=== PATIENT | female | born 1965 | race African-American/Black ===

== ENCOUNTER 2017-11-06 11:16 | Inpatient (IN) | payer MEDICARE, MEDICAID ==
[~2017-11-06] VITALS: Ht 172.7 cm; Wt 89.5 kg
[2017-11-06] MEDS ORDERED: SODIUM CHLORIDE 0.9% 1,000 ML IV ONE (11:38)
[2017-11-06] MEDS ORDERED: METOCLOPRAMIDE HCL 5MG/ml INJ 2ml VIAL IV ONE (11:45)
[2017-11-06 12:33] LABS: Basophils # (auto) 0.1 uL; Eosinophils # (auto) 0.2 uL; Hemoglobin 9.5 g/dL (12.2-16.2); Lymphocytes # (auto) 1.4 uL; Mean Corpuscular Volume 75.1 fL (80.0-100.0); Monocytes # (auto) 0.5 uL; Neutrophils # (auto) 4.5 uL
[2017-11-06 12:35] LABS: Basophils % (auto) 1.2 % (0.0-2.0); Eosinophils % (auto) 2.3 % (0.0-7.0); Hematocrit 30.1 % (36.0-46.0); Lymphocytes % (auto) 21.5 % (10.0-50.0); Mean Corpuscular Hemoglobin 23.7 pg (28.0-32.0); Mean Corpuscular Hgb Conc. 31.5 g/dL (32.0-36.0); Nucleated Red Blood Cells % 0.2 %; Platelet Count (auto) 307 10^3/uL (140-450); Red Blood Cells 4.01 10^6/uL (4.0-5.20); Red Cell Distribution Width 16.3 % (11.8-14.3); White Blood Cell 6.6 10^3/uL (4.4-10.8)
[2017-11-06 12:45] LABS: Albumin 3.4 g/dL (3.4-5.0); Anion Gap 12 (5-15); Blood Urea Nitrogen 10 mg/dL (7-18); Calcium 8.9 mg/dL (8.5-10.1); Carbon Dioxide 20 mmol/L (21-32); Chloride 104 mmol/L (98-107); Glucose 315 mg/dL (74-106); Potassium 3.5 mmol/L (3.5-5.1); Sodium 136 mmol/L (136-145)
[2017-11-06 12:47] LABS: Alanine Aminotransferase 22 U/L (13-56); Aspartate Aminotransferase 8 U/L (15-37); BUN/Creatinine Ratio 13.5; GFR African American 105 mL/min; GFR Non-African American 87 mL/min
[2017-11-06 12:48] LABS: INR 0.93 (0.9-1.15); Partial Thromboplastin Time 28.7 sec (23.78-33.04)
[2017-11-06 12:52] LABS: Alkaline Phosphatase 102 U/L (45-117); Bilirubin, Total 0.4 mg/dL (0.2-1.0); Total Protein 7.2 g/dL (6.4-8.2)
[2017-11-06 13:47] LABS: Urine Bacteria FEW /hpf (None Seen); Urine Blood Negative /uL (Negative); Urine Mucus FEW (None Seen); Urine Specific Gravity 1.029 (1.001-1.035); Urine WBC 1 /hpf (0 - 5)
[2017-11-06] MEDS ORDERED: PROMETHAZINE HCL 25 MG/ML 1ML IV PRN (14:15)
[2017-11-06] MEDS ORDERED: MORPHINE SULF INJ 2 MG/ML SYRINGE 1ML IV PRN (14:15)
[2017-11-06] MEDS ORDERED: HYDROcodone-ACET 5/325MG TAB PO PRN (14:15)
[2017-11-06] MEDS ORDERED: DEXTROSE (50%) 50ML SYRG IV PRN (14:15)
[2017-11-06] MEDS ORDERED: LORazepam 0.5 MG TAB PO PRN (14:15)
[2017-11-06] MEDS ORDERED: ACETAMINOPHEN 500 MG TAB PO PRN (14:15)
[2017-11-06] MEDS ORDERED: LABETALOL HCL 5 MG/ML ML 20ML VIAL IV PRN (14:15)
[2017-11-06] MEDS ORDERED: NITROGLYCERIN 0.4 MG SL TAB SL PRN (14:15)
[2017-11-06] MEDS ORDERED: LACTULOSE 20Gm/30ML SOLN PO PRN (14:15)
[2017-11-06 14:50] LABS: Folate (Folic Acid) 14.05 ng/mL (5.38-24)
[2017-11-06] MEDS: InsuLIN REG 1unit/0.01ml Soln (100units/ml) SC SCH ×3 (16:34→23:30)
[2017-11-06] MEDS: MORPHINE SULF INJ 2 MG/ML SYRINGE 1ML IV PRN ×2 (16:35→20:35)
[2017-11-06] MEDS: ACCU-CHEK COMFORT CURVE STRIP VI SCH ×3 (16:35→23:30)
[2017-11-06] MEDS: SODIUM CHLORIDE 0.9% 1,000 ML IV SCH (16:37)
[2017-11-06 17:58] VITALS: BP 133/94
[2017-11-06 18:14] VITALS: BP 133/94
[2017-11-06] MEDS ORDERED: FENO1TAB42 PO (19:20)
[2017-11-06] MEDS ORDERED: HYDR-4798 PO (19:20)
[2017-11-06] MEDS ORDERED: PROM1SYP4 PO (19:20)
[2017-11-06] MEDS ORDERED: CARB200T4 PO (19:20)
[2017-11-06] MEDS ORDERED: ATOR40TA52 PO (19:20)
[2017-11-06] MEDS ORDERED: FERR220E4 OR (19:20)
[2017-11-06] MEDS ORDERED: TRAZ150T79 PO (19:20)
[2017-11-06] MEDS ORDERED: GABA300C PO (19:20)
[2017-11-06] MEDS ORDERED: CHOL100040 PO (19:20)
[2017-11-06] MEDS ORDERED: LORazepam 2MG/ML-1ML VIAL IV PRN ×2 (20:00)
[2017-11-06] MEDS ORDERED: FLUCONAZOLE 100 MG TAB PO ONE (20:45)
[2017-11-06] MEDS ORDERED: LEVOFLOXACIN 500 MG TAB PO ONE (20:45)
[2017-11-06 21:13] VITALS: BP 133/94
[2017-11-06 21:56] LABS: % Iron Saturation 6.6 % (15-50)
[2017-11-06 21:59] VITALS: BP 141/90
[2017-11-06] MEDS ORDERED: ATORVASTATIN 20 MG TAB PO SCH ×2 (22:00)
[2017-11-06] MEDS: carBAMazepine 200 MG TAB PO SCH (22:18)
[2017-11-06] MEDS: ATORVASTATIN 20 MG TAB PO SCH (22:18)
[2017-11-06] MEDS: TEMAZEPAM 15 MG CAP PO PRN (22:18)
[2017-11-06] MEDS: PRAMIPEXOLE DIHYDROCHLORIDE MO 0.25 MG TAB PO SCH (22:19)
[2017-11-07] MEDS: MORPHINE SULF INJ 2 MG/ML SYRINGE 1ML IV PRN (01:29)
[2017-11-07] MEDS: SODIUM CHLORIDE 0.9% 1,000 ML IV SCH ×2 (02:43→09:29)
[2017-11-07] MEDS: InsuLIN REG 1unit/0.01ml Soln (100units/ml) SC SCH ×5 (03:58→21:48)
[2017-11-07] MEDS: ACCU-CHEK COMFORT CURVE STRIP VI SCH ×5 (03:58→21:49)
[2017-11-07 05:00] VITALS: BP 109/69
[2017-11-07 06:40] LABS: Cholesterol 161 mg/dL (< 200); HDL Cholesterol 26 mg/dL (40-59); LDL Cholesterol 114 mg/dL (< 100); Triglycerides 152 mg/dL (< 150)
[2017-11-07 09:00] VITALS: BP 101/73
[2017-11-07] MEDS: carBAMazepine 200 MG TAB PO SCH ×2 (09:21→21:48)
[2017-11-07] MEDS: PANTOPRAZOLE 40 MG TAB PO SCH (09:21)
[2017-11-07] MEDS: ASPirin 81 mg TAB PO SCH (09:21)
[2017-11-07] MEDS: ENOXAPARIN SOD 40 MG/0.4 ML SYRINGE SC SCH (09:24)
[2017-11-07] MEDS ORDERED: FLUCONAZOLE 100 MG TAB PO SCH (10:00)
[2017-11-07] MEDS ORDERED: LEVOFLOXACIN 500 MG TAB PO SCH (10:00)
[2017-11-07] MEDS ORDERED: DEXTROSE (50%) 50ML SYRG IV PRN (11:00)
[2017-11-07 11:57] LABS: Basophils # (auto) 0.1 uL; Eosinophils # (auto) 0.2 uL; Hemoglobin 8.4 g/dL (12.2-16.2); Monocytes # (auto) 0.4 uL; Neutrophils # (auto) 3.4 uL
[2017-11-07 11:59] LABS: Basophils % (auto) 1.4 % (0.0-2.0); Hematocrit 26.4 % (36.0-46.0); Mean Corpuscular Hemoglobin 24.2 pg (28.0-32.0); Mean Corpuscular Hgb Conc. 31.9 g/dL (32.0-36.0); Mean Corpuscular Volume 75.8 fL (80.0-100.0); Monocytes % (auto) 6.1 % (0.0-12.0); Neutrophils % (auto) 55.5 % (37.0-80.0); Nucleated Red Blood Cells % 0.2 %; Platelet Count (auto) 258 10^3/uL (140-450); Red Blood Cells 3.49 10^6/uL (4.0-5.20); Red Cell Distribution Width 16.4 % (11.8-14.3); White Blood Cell 6.1 10^3/uL (4.4-10.8)
[2017-11-07] MEDS: NYSTATIN TOPICAL POWDER 15GM TOP SCH ×2 (12:00→21:48)
[2017-11-07] MEDS: HYDROcodone-ACET 5/325MG TAB PO PRN ×3 (12:38→21:49)
[2017-11-07 13:00] VITALS: BP 129/92
[2017-11-07 16:38] LABS: BUN/Creatinine Ratio 12.9; Calcium 8.6 mg/dL (8.5-10.1); Potassium 3.5 mmol/L (3.5-5.1)
[2017-11-07 17:11] VITALS: BP 118/84
[2017-11-07 20:00] VITALS: BP 133/67
[2017-11-07] MEDS: PRAMIPEXOLE DIHYDROCHLORIDE MO 0.25 MG TAB PO SCH (21:47)
[2017-11-07] MEDS: ATORVASTATIN 20 MG TAB PO SCH (21:47)
[2017-11-07 22:00] VITALS: BP 133/67
[2017-11-08] MEDS: HYDROcodone-ACET 5/325MG TAB PO PRN ×5 (01:58→21:23)
[2017-11-08] MEDS: SODIUM CHLORIDE 0.9% 1,000 ML IV SCH ×2 (03:43→16:13)
[2017-11-08 04:57] VITALS: BP 135/76
[2017-11-08 06:27] LABS: Basophils # (auto) 0.1 uL; Lymphocytes # (auto) 2.2 uL
[2017-11-08 06:29] LABS: Basophils % (auto) 1.2 % (0.0-2.0); Eosinophils # (auto) 0.2 uL; Eosinophils % (auto) 4.5 % (0.0-7.0); Hematocrit 26.6 % (36.0-46.0); Hemoglobin 8.2 g/dL (12.2-16.2); Mean Corpuscular Hemoglobin 23.4 pg (28.0-32.0); Mean Corpuscular Hgb Conc. 30.7 g/dL (32.0-36.0); Mean Corpuscular Volume 76.4 fL (80.0-100.0); Monocytes # (auto) 0.3 uL; Neutrophils # (auto) 2.5 uL; Neutrophils % (auto) 47.3 % (37.0-80.0); Platelet Count (auto) 259 10^3/uL (140-450); Red Blood Cells 3.48 10^6/uL (4.0-5.20); Red Cell Distribution Width 16.1 % (11.8-14.3); White Blood Cell 5.4 10^3/uL (4.4-10.8)
[2017-11-08 06:44] LABS: BUN/Creatinine Ratio 12.3; Calcium 8.5 mg/dL (8.5-10.1); Potassium 3.8 mmol/L (3.5-5.1)
[2017-11-08] MEDS: InsuLIN REG 1unit/0.01ml Soln (100units/ml) SC SCH ×4 (06:46→21:36)
[2017-11-08] MEDS: ACCU-CHEK COMFORT CURVE STRIP VI SCH ×4 (06:46→21:28)
[2017-11-08] MEDS: INSULIN LANTUS (GLARGINE) 1 /0.01ml (100units/ml) SC SCH (07:30)
[2017-11-08] MEDS ORDERED: SUMAtriptan SUCCINATE 6 MG/0.5 ML VL SC PRN (07:45)
[2017-11-08] MEDS ORDERED: SODIUM FERR GLUC 62.5MG/5ML 125 MG in SODIUM CHL 0.9% 100 ML IV ONE (08:30)
[2017-11-08 09:00] VITALS: BP 131/92
[2017-11-08] MEDS: FLUCONAZOLE 100 MG TAB PO SCH (10:08)
[2017-11-08] MEDS: carBAMazepine 200 MG TAB PO SCH ×2 (10:08→21:22)
[2017-11-08] MEDS: PANTOPRAZOLE 40 MG TAB PO SCH (10:09)
[2017-11-08] MEDS: NYSTATIN TOPICAL POWDER 15GM TOP SCH ×2 (10:09→21:35)
[2017-11-08] MEDS: ENOXAPARIN SOD 40 MG/0.4 ML SYRINGE SC SCH (10:09)
[2017-11-08] MEDS: ASPirin 81 mg TAB PO SCH (10:14)
[2017-11-08 13:00] VITALS: BP 142/100
[2017-11-08 17:04] VITALS: BP 130/90
[2017-11-08 20:00] VITALS: BP 127/84
[2017-11-08] MEDS: ATORVASTATIN 20 MG TAB PO SCH (21:22)
[2017-11-08] MEDS: ASCORBIC ACID 500 MG TAB PO SCH (21:22)
[2017-11-08] MEDS: PRAMIPEXOLE DIHYDROCHLORIDE MO 0.25 MG TAB PO SCH (21:22)
[2017-11-08] MEDS: TEMAZEPAM 15 MG CAP PO PRN (21:34)
[2017-11-08 22:00] VITALS: BP 127/84
[2017-11-09] MEDS: HYDROcodone-ACET 5/325MG TAB PO PRN ×5 (01:41→22:34)
[2017-11-09] MEDS: SODIUM CHLORIDE 0.9% 1,000 ML IV SCH ×2 (04:43→17:13)
[2017-11-09 05:00] VITALS: BP 109/67
[2017-11-09] MEDS: ACCU-CHEK COMFORT CURVE STRIP VI SCH ×4 (06:22→21:50)
[2017-11-09] MEDS: InsuLIN REG 1unit/0.01ml Soln (100units/ml) SC SCH ×4 (06:30→21:50)
[2017-11-09] MEDS: INSULIN LANTUS (GLARGINE) 1 /0.01ml (100units/ml) SC SCH (06:31)
[2017-11-09 06:37] LABS: Basophils # (auto) 0.1 uL; Lymphocytes # (auto) 1.7 uL; Monocytes # (auto) 0.4 uL
[2017-11-09 06:50] LABS: Basophils % (auto) 1.4 % (0.0-2.0); Eosinophils # (auto) 0.2 uL; Eosinophils % (auto) 4.4 % (0.0-7.0); Hemoglobin 8.2 g/dL (12.2-16.2); Lymphocytes % (auto) 31.7 % (10.0-50.0); Mean Corpuscular Hgb Conc. 31.4 g/dL (32.0-36.0); Mean Corpuscular Volume 76.5 fL (80.0-100.0); Neutrophils % (auto) 55.5 % (37.0-80.0); Nucleated Red Blood Cells % 0.1 %; Platelet Count (auto) 242 10^3/uL (140-450); Red Cell Distribution Width 16.7 % (11.8-14.3); White Blood Cell 5.3 10^3/uL (4.4-10.8)
[2017-11-09 07:11] LABS: BUN/Creatinine Ratio 15.8; Calcium 8.3 mg/dL (8.5-10.1); Potassium 3.7 mmol/L (3.5-5.1)
[2017-11-09 09:18] VITALS: BP 130/75
[2017-11-09] MEDS: NYSTATIN TOPICAL POWDER 15GM TOP SCH ×2 (10:00→21:50)
[2017-11-09] MEDS: PRAMIPEXOLE DIHYDROCHLORIDE MO 0.25 MG TAB PO SCH ×2 (10:00→21:36)
[2017-11-09] MEDS: ENOXAPARIN SOD 40 MG/0.4 ML SYRINGE SC SCH (10:00)
[2017-11-09 10:24] LABS: Urine Bacteria FEW /hpf (None Seen); Urine Blood Negative /uL (Negative); Urine Specific Gravity 1.009 (1.001-1.035); Urine WBC 2 /hpf (0 - 5)
[2017-11-09 10:25] LABS: Alcohol, Urine < 3.0 mg/dL (0-5); Amphetamine Screen, Urine NEGATIVE (NEGATIVE); Barbiturate Scree,Urine NEGATIVE (NEGATIVE); Benzodiazephine Screen, Urine NEGATIVE (NEGATIVE); Cannabinoid Screen, Urine NEGATIVE (NEGATIVE); Cocaine Screen, Urine NEGATIVE (NEGATIVE); Opiate Scree,Urine POSITIVE (NEGATIVE); Phencyclidine Screen, Urine NEGATIVE (NEGATIVE)
[2017-11-09] MEDS: PANTOPRAZOLE 40 MG TAB PO SCH (10:33)
[2017-11-09] MEDS: carBAMazepine 200 MG TAB PO SCH ×2 (10:33→21:36)
[2017-11-09] MEDS: FLUCONAZOLE 100 MG TAB PO SCH (10:34)
[2017-11-09] MEDS: ASPirin 81 mg TAB PO SCH (10:34)
[2017-11-09] MEDS: FERROUS SULFATE 325 MG TAB PO SCH ×2 (10:34→18:00)
[2017-11-09] MEDS: ASCORBIC ACID 500 MG TAB PO SCH ×2 (10:34→21:36)
[2017-11-09 13:00] VITALS: BP 111/70
[2017-11-09 17:00] VITALS: BP 133/72
[2017-11-09 20:00] VITALS: BP 127/78
[2017-11-09] MEDS: ATORVASTATIN 20 MG TAB PO SCH (21:37)
[2017-11-09] MEDS: TEMAZEPAM 15 MG CAP PO PRN (21:37)
[2017-11-09 22:00] VITALS: BP 127/78
[2017-11-10] VITALS (7 sets, daily range): BP systolic 120–144; BP diastolic 75–89
[2017-11-10] MEDS: SODIUM CHLORIDE 0.9% 1,000 ML IV SCH ×3 (05:43→18:07)
[2017-11-10 06:18] LABS: Basophils # (auto) 0.1 uL; Eosinophils # (auto) 0.2 uL; Mean Corpuscular Hemoglobin 24.2 pg (28.0-32.0); Monocytes # (auto) 0.4 uL; Nucleated Red Blood Cells % 0.1 %
[2017-11-10 06:21] LABS: Basophils % (auto) 1.2 % (0.0-2.0); Eosinophils % (auto) 3.6 % (0.0-7.0); Lymphocytes # (auto) 2.1 uL; Lymphocytes % (auto) 30.8 % (10.0-50.0); Mean Corpuscular Hgb Conc. 31.8 g/dL (32.0-36.0); Mean Corpuscular Volume 76.2 fL (80.0-100.0); Monocytes % (auto) 5.5 % (0.0-12.0); Neutrophils % (auto) 58.9 % (37.0-80.0); Platelet Count (auto) 244 10^3/uL (140-450); Red Blood Cells 3.29 10^6/uL (4.0-5.20); Red Cell Distribution Width 16.8 % (11.8-14.3); White Blood Cell 6.8 10^3/uL (4.4-10.8)
[2017-11-10 06:29] LABS: BUN/Creatinine Ratio 11.4; Calcium 8.4 mg/dL (8.5-10.1); Potassium 3.6 mmol/L (3.5-5.1)
[2017-11-10] MEDS: ACCU-CHEK COMFORT CURVE STRIP VI SCH ×4 (06:33→21:57)
[2017-11-10] MEDS: InsuLIN REG 1unit/0.01ml Soln (100units/ml) SC SCH ×4 (06:33→21:57)
[2017-11-10] MEDS: INSULIN LANTUS (GLARGINE) 1 /0.01ml (100units/ml) SC SCH (06:33)
[2017-11-10] MEDS: HYDROcodone-ACET 5/325MG TAB PO PRN ×3 (09:01→22:28)
[2017-11-10] MEDS: ENOXAPARIN SOD 40 MG/0.4 ML SYRINGE SC SCH (10:00)
[2017-11-10] MEDS: DEXAMETHASONE INJECTION 10 MG in D5W 5% 50 ML IV SCH (10:40)
[2017-11-10] MEDS: ASPirin 81 mg TAB PO SCH (11:56)
[2017-11-10] MEDS: FERROUS SULFATE 325 MG TAB PO SCH ×2 (11:56→18:07)
[2017-11-10] MEDS: ASCORBIC ACID 500 MG TAB PO SCH ×2 (11:57→21:48)
[2017-11-10] MEDS: PANTOPRAZOLE 40 MG TAB PO SCH (11:57)
[2017-11-10] MEDS: PRAMIPEXOLE DIHYDROCHLORIDE MO 0.25 MG TAB PO SCH ×2 (11:57→21:48)
[2017-11-10] MEDS: carBAMazepine 200 MG TAB PO SCH ×2 (11:57→21:48)
[2017-11-10] MEDS: PROPRANOLOL HCL 20 MG TAB PO SCH ×2 (11:57→21:48)
[2017-11-10] MEDS: NYSTATIN TOPICAL POWDER 15GM TOP SCH ×2 (11:58→21:57)
[2017-11-10] MEDS: METOCLOPRAMIDE HCL 10 MG TAB PO SCH ×2 (14:53→21:45)
[2017-11-10] MEDS: ATORVASTATIN 20 MG TAB PO SCH (21:48)
[2017-11-10] MEDS: TEMAZEPAM 15 MG CAP PO PRN (21:53)
[2017-11-11] MEDS: SODIUM CHLORIDE 0.9% 1,000 ML IV SCH ×2 (04:45→14:45)
[2017-11-11 05:00] VITALS: BP 119/70
[2017-11-11] MEDS: HYDROcodone-ACET 5/325MG TAB PO PRN ×2 (05:03→12:12)
[2017-11-11] MEDS: InsuLIN REG 1unit/0.01ml Soln (100units/ml) SC SCH ×3 (05:52→17:00)
[2017-11-11] MEDS: INSULIN LANTUS (GLARGINE) 1 /0.01ml (100units/ml) SC SCH (05:53)
[2017-11-11] MEDS: ACCU-CHEK COMFORT CURVE STRIP VI SCH ×3 (05:53→17:00)
[2017-11-11] MEDS: METOCLOPRAMIDE HCL 10 MG TAB PO SCH ×2 (05:58→14:00)
[2017-11-11 07:14] LABS: Basophils # (auto) 0.1 uL; Eosinophils # (auto) 0 uL; Nucleated Red Blood Cells % 0.1 %; White Blood Cell 9.4 10^3/uL (4.4-10.8)
[2017-11-11 07:17] LABS: Basophils % (auto) 0.6 % (0.0-2.0); Eosinophils % (auto) 0.4 % (0.0-7.0); Hematocrit 26.3 % (36.0-46.0); Hemoglobin 8.3 g/dL (12.2-16.2); Lymphocytes # (auto) 1.6 uL; Lymphocytes % (auto) 16.6 % (10.0-50.0); Mean Corpuscular Hemoglobin 24.5 pg (28.0-32.0); Mean Corpuscular Hgb Conc. 31.7 g/dL (32.0-36.0); Mean Corpuscular Volume 77.2 fL (80.0-100.0); Monocytes # (auto) 0.6 uL; Monocytes % (auto) 5.9 % (0.0-12.0); Neutrophils # (auto) 7.2 uL; Neutrophils % (auto) 76.5 % (37.0-80.0); Platelet Count (auto) 252 10^3/uL (140-450); Red Cell Distribution Width 16.7 % (11.8-14.3)
[2017-11-11 07:33] LABS: BUN/Creatinine Ratio 20.6; Calcium 8.9 mg/dL (8.5-10.1); Potassium 3.6 mmol/L (3.5-5.1)
[2017-11-11 07:53] VITALS: BP 144/89
[2017-11-11] MEDS ORDERED: ADENOSINE 75 MG in GIVE UN-DILUTED 0 ML IV STA (08:36)
[2017-11-11 09:02] VITALS: BP 128/86
[2017-11-11 09:04] VITALS: BP 135/67
[2017-11-11] MEDS: ENOXAPARIN SOD 40 MG/0.4 ML SYRINGE SC SCH (10:00)
[2017-11-11] MEDS: DEXAMETHASONE INJECTION 10 MG in D5W 5% 50 ML IV SCH (10:44)
[2017-11-11] MEDS: ASPirin 81 mg TAB PO SCH (10:44)
[2017-11-11] MEDS: FERROUS SULFATE 325 MG TAB PO SCH ×2 (10:44→18:00)
[2017-11-11] MEDS: PROPRANOLOL HCL 20 MG TAB PO SCH (10:46)
[2017-11-11] MEDS: PRAMIPEXOLE DIHYDROCHLORIDE MO 0.25 MG TAB PO SCH (10:46)
[2017-11-11] MEDS: PANTOPRAZOLE 40 MG TAB PO SCH (10:46)
[2017-11-11] MEDS: carBAMazepine 200 MG TAB PO SCH (10:47)
[2017-11-11] MEDS: ASCORBIC ACID 500 MG TAB PO SCH (10:47)
[2017-11-11] MEDS: NYSTATIN TOPICAL POWDER 15GM TOP SCH (10:48)
[2017-11-11 12:52] VITALS: BP 126/71
[2017-11-11 17:00] VITALS: BP 143/88
== END 2017-11-11 18:28 | disposition home or self-care (01) | DRG 638 ==
LOC: ER 11:16 → TELE 11:17 → TELE-WESTW 17:24
PROVIDERS: ADMIT Internal Medicine; ATTEND Internal Medicine
PROC: 5A09357 Assistance with Respiratory Ventilation, Less than 24 Consecutive Hours, Continuous Positive Airway Pressure (ICD-10-PCS; principal; 2017-11-06)
PROC: 5A09357 Assistance with Respiratory Ventilation, Less than 24 Consecutive Hours, Continuous Positive Airway Pressure (ICD-10-PCS; 2017-11-08)
PROC: 5A09357 Assistance with Respiratory Ventilation, Less than 24 Consecutive Hours, Continuous Positive Airway Pressure (ICD-10-PCS; 2017-11-10)
PROC: 5A09357 Assistance with Respiratory Ventilation, Less than 24 Consecutive Hours, Continuous Positive Airway Pressure (ICD-10-PCS; 2017-11-11)
DX: E11.65 Type 2 diabetes mellitus with hyperglycemia (principal); G45.9 Transient cerebral ischemic attack, unspecified; E44.1 Mild protein-calorie malnutrition; G25.81 Restless legs syndrome; G47.10 Hypersomnia, unspecified; G47.00 Insomnia, unspecified; E78.5 Hyperlipidemia, unspecified; J45.909 Unspecified asthma, uncomplicated; B37.3 Candidiasis of vulva and vagina; D50.9 Iron deficiency anemia, unspecified; E78.1 Pure hyperglyceridemia; F17.210 Nicotine dependence, cigarettes, uncomplicated; E66.9 Obesity, unspecified; G89.29 Other chronic pain; F41.9 Anxiety disorder, unspecified; G40.409 Other generalized epilepsy and epileptic syndromes, not intractable, without status epilepticus; E11.40 Type 2 diabetes mellitus with diabetic neuropathy, unspecified; I11.9 Hypertensive heart disease without heart failure; I70.0 Atherosclerosis of aorta; Z86.73 Personal history of transient ischemic attack (TIA), and cerebral infarction without residual deficits; Z90.710 Acquired absence of both cervix and uterus; Z88.8 Allergy status to other drugs, medicaments and biological substances; Z79.82 Long term (current) use of aspirin; Z79.899 Other long term (current) drug therapy; I25.2 Old myocardial infarction; Z82.49 Family history of ischemic heart disease and other diseases of the circulatory system; Z83.3 Family history of diabetes mellitus; Z68.30 Body mass index [BMI] 30.0-30.9, adult
CPT/HCPCS: 36415; 70450; 70551; 71045; 80048; 80053; 80061; 80156; 80307; 81001; 82550; 82607; 82728; 82746; 82962; 83036; 83540; 83550; 84443; 84484; 85025; 85610; 85652; 85730; 93005; 93017; 93306; 93886; 94660; 94761; 95819; 96361; 96374; J0153; J1100; J1815; J7060

== ENCOUNTER 2018-02-13 10:15 | Emergency (ER) | payer MEDICARE, MEDICAID ==
[~2018-02-13] VITALS: Ht 172.7 cm; Wt 74.8 kg
[~2018-02-13 10:15] MED LIST: ATOR40TA52 PO; CARB200T4 PO; CHOL100040 PO; FENO1TAB42 PO; FERR220E4 OR; GABA300C PO; HYDR-4798 PO; PROM1SYP4 PO; TRAZ150T79 PO
[2018-02-13] MEDS: SODIUM CHLORIDE 0.9% 1,000 ML IV ONE ×2 (10:25)
[2018-02-13 11:01] VITALS: BP 138/89
[2018-02-13 11:04] LABS: Basophils # (auto) 0.1 uL; Eosinophils # (auto) 0.2 uL; Eosinophils % (auto) 1.7 % (0.0-7.0); Monocytes # (auto) 0.6 uL; Nucleated Red Blood Cells % 0.1 %
[2018-02-13 11:05] LABS: Basophils % (auto) 0.9 % (0.0-2.0); Hematocrit 38.4 % (36.0-46.0); Hemoglobin 11.9 g/dL (12.2-16.2); Lymphocytes # (auto) 1.5 uL; Lymphocytes % (auto) 14.7 % (10.0-50.0); Mean Corpuscular Hgb Conc. 30.9 g/dL (32.0-36.0); Mean Corpuscular Volume 84.1 fL (80.0-100.0); Monocytes % (auto) 5.4 % (0.0-12.0); Neutrophils # (auto) 7.9 uL; Neutrophils % (auto) 77.3 % (37.0-80.0); Platelet Count (auto) 490 10^3/uL (140-450); Red Blood Cells 4.56 10^6/uL (4.0-5.20); Red Cell Distribution Width 19.3 % (11.8-14.3); White Blood Cell 10.3 10^3/uL (4.4-10.8)
[2018-02-13 11:12] LABS: Amylase 84 U/L (25-115); Anion Gap 8 (5-15); Blood Urea Nitrogen 9 mg/dL (7-18); Calcium 8.7 mg/dL (8.5-10.1); Carbon Dioxide 23 mmol/L (21-32); Chloride 108 mmol/L (98-107); Glucose 132 mg/dL (74-106); Lipase 372 U/L (73-393); Sodium 139 mmol/L (136-145)
[2018-02-13 11:17] LABS: Alanine Aminotransferase 18 U/L (13-56); Alkaline Phosphatase 72 U/L (45-117); Aspartate Aminotransferase 11 U/L (15-37); BUN/Creatinine Ratio 17.3; Bilirubin, Total 0.3 mg/dL (0.2-1.0); GFR African American 158 mL/min; GFR Non-African American 131 mL/min; Total Protein 6.5 g/dL (6.4-8.2)
[2018-02-13] MEDS: KETOROLAC TROMETH 30 MG/ML 1ML VIAL IV ONE (11:34)
== END 2018-02-13 12:39 | disposition home or self-care (01) ==
LOC: EDBD 10:15 → ER 10:15
DX: K56.7 Ileus, unspecified (principal); J45.909 Unspecified asthma, uncomplicated; E11.9 Type 2 diabetes mellitus without complications; E78.5 Hyperlipidemia, unspecified; I10 Essential (primary) hypertension; F17.210 Nicotine dependence, cigarettes, uncomplicated; Z79.899 Other long term (current) drug therapy; Z90.710 Acquired absence of both cervix and uterus; Z98.51 Tubal ligation status
CPT/HCPCS: 36415; 71045; 74176; 80053; 82150; 83690; 83880; 84484; 85025; 93005; 96361; 96374; 99284; J1885; J7030

== ENCOUNTER → 2018-04-14 | Outpatient (CLI) | payer MEDICARE, MEDICAID ==
[2018-04-14 16:21] LABS: Albumin 4.2 g/dL (3.4-5.0); Calcium 9.7 mg/dL (8.5-10.1)
[2018-04-14 16:25] LABS: BUN/Creatinine Ratio 12.3; Bilirubin, Total 0.3 mg/dL (0.2-1.0)
[2018-04-14 16:32] LABS: Basophils # (auto) 0.1 uL; Basophils % (auto) 2.7 % (0.0-2.0); Eosinophils # (auto) 0.2 uL; Eosinophils % (auto) 4.3 % (0.0-7.0); Hematocrit 39.8 % (36.0-46.0); Hemoglobin 12.7 g/dL (12.2-16.2); Lymphocytes # (auto) 1.9 uL; Lymphocytes % (auto) 40.6 % (10.0-50.0); Mean Corpuscular Hemoglobin 26.7 pg (28.0-32.0); Mean Corpuscular Hgb Conc. 31.9 g/dL (32.0-36.0); Mean Corpuscular Volume 83.6 fL (80.0-100.0); Monocytes # (auto) 0.3 uL; Monocytes % (auto) 5.6 % (0.0-12.0); Neutrophils # (auto) 2.2 uL; Neutrophils % (auto) 46.8 % (37.0-80.0); Nucleated Red Blood Cells % 0.2 %; Platelet Count (auto) 329 10^3/uL (140-450); Red Blood Cells 4.75 10^6/uL (4.0-5.20); Red Cell Distribution Width 17.2 % (11.8-14.3); White Blood Cell 4.6 10^3/uL (4.4-10.8)
== END | disposition home or self-care (01) ==
LOC: LAB 15:41
PROVIDERS: ATTEND Internal Medicine
DX: C18.9 Malignant neoplasm of colon, unspecified (principal)
CPT/HCPCS: 36415; 80053; 82378; 83615; 85025

== ENCOUNTER → 2018-06-18 | Outpatient (CLI) | payer MEDICARE, MEDICAID ==
[2018-06-18 09:02] LABS: Basophils # (auto) 0.1 uL; Basophils % (auto) 1.2 % (0.0-2.0); Eosinophils # (auto) 0.2 uL; Eosinophils % (auto) 4.1 % (0.0-7.0); Hematocrit 44.3 % (36.0-46.0); Hemoglobin 14.3 g/dL (12.2-16.2); Lymphocytes # (auto) 1.9 uL; Lymphocytes % (auto) 30.8 % (10.0-50.0); Mean Corpuscular Hemoglobin 28.1 pg (28.0-32.0); Mean Corpuscular Hgb Conc. 32.3 g/dL (32.0-36.0); Mean Corpuscular Volume 87.2 fL (80.0-100.0); Monocytes # (auto) 0.4 uL; Monocytes % (auto) 6.9 % (0.0-12.0); Neutrophils # (auto) 3.5 uL; Platelet Count (auto) 310 10^3/uL (140-450); Red Blood Cells 5.08 10^6/uL (4.0-5.20); Red Cell Distribution Width 18.2 % (11.8-14.3); White Blood Cell 6.1 10^3/uL (4.4-10.8)
[2018-06-18 09:34] LABS: Albumin 4.1 g/dL (3.4-5.0); Potassium 4.5 mmol/L (3.5-5.1)
[2018-06-18 09:37] LABS: BUN/Creatinine Ratio 20.2; Bilirubin, Total 0.3 mg/dL (0.2-1.0)
== END | disposition home or self-care (01) ==
LOC: LAB 08:47
PROVIDERS: ATTEND Internal Medicine
DX: C18.2 Malignant neoplasm of ascending colon (principal)
CPT/HCPCS: 36415; 80053; 83615; 85025

== ENCOUNTER → 2018-07-08 | Day surgery (SDC) | payer MEDICARE, MEDICAID ==
[2018-07-06 10:59] LABS: Basophils # (auto) 0.1 uL; Basophils % (auto) 1.9 % (0.0-2.0); Eosinophils # (auto) 0.3 uL; Eosinophils % (auto) 4.7 % (0.0-7.0); Hemoglobin 13.9 g/dL (12.2-16.2); Lymphocytes # (auto) 1.9 uL; Lymphocytes % (auto) 33.2 % (10.0-50.0); Mean Corpuscular Hemoglobin 29.2 pg (28.0-32.0); Mean Corpuscular Hgb Conc. 33.1 g/dL (32.0-36.0); Mean Corpuscular Volume 88.2 fL (80.0-100.0); Monocytes # (auto) 0.3 uL; Monocytes % (auto) 5.8 % (0.0-12.0); Neutrophils # (auto) 3.2 uL; Neutrophils % (auto) 54.4 % (37.0-80.0); Nucleated Red Blood Cells % 0.1 %; Platelet Count (auto) 307 10^3/uL (140-450); Red Blood Cells 4.76 10^6/uL (4.0-5.20); Red Cell Distribution Width 17.3 % (11.8-14.3); White Blood Cell 5.9 10^3/uL (4.4-10.8)
[2018-07-06 11:00] LABS: Urine Bacteria NONE SEEN /hpf (None Seen); Urine Blood Negative /uL (Negative); Urine Specific Gravity 1.033 (1.001-1.035); Urine WBC 3 /hpf (0 - 5)
[2018-07-06 11:16] LABS: INR 0.84 (0.9-1.15); Partial Thromboplastin Time 29.3 sec (23.78-33.04); Prothrombin Time 9.1 sec (9.27-12.13)
[2018-07-06 11:17] LABS: Potassium 4.4 mmol/L (3.5-5.1)
[2018-07-06 11:22] LABS: Albumin 3.9 g/dL (3.4-5.0); Calcium 9.6 mg/dL (8.5-10.1)
[2018-07-06 11:24] LABS: BUN/Creatinine Ratio 15.8
[2018-07-06 11:27] LABS: Bilirubin, Total 0.2 mg/dL (0.2-1.0)
[~2018-07-08] VITALS: Ht 177.8 cm; Wt 82.6 kg
[~2018-07-08] MED LIST changes: +ACCU-CHEK COMFORT CURVE STRIP VI ONE; -ATOR40TA52 PO; +DexAMETHasone SOD PHOS 10MG/1ML VIAL INJ ONE; -FENO1TAB42 PO; +HEPARIN 1,000 UNITS/ml 1ML VIAL ONE; +HEPARIN SODIUM (PORCINE) 5000 UNITS/ML 1ML VIAL ONE; +InsuLIN REG 1unit/0.01ml Soln (100units/ml) ONE; +KETOROLAC TROMETH 30 MG/ML 1ML VIAL IV ONE; +LABETALOL HCL 5 MG/ML 4ML SYRINGE IV PRN; +MIDAZOLAM HCL 1MG/1ML-2 ML VIAL IV PRN; +MIDAZOLAM HCL 1MG/1ML-2 ML VIAL ONE; +MORPHINE SULFATE 4 MG/ML SYR/VIAL IV ONE; +MORPHINE SULFATE 4 MG/ML SYR/VIAL IV PRN; +ONDANSETRON HCL 4 MG/2 ML VIAL IV ONE; -PROM1SYP4 PO; +PROPOFOL 10 MG/ML 20 ML IV ONE; -TRAZ150T79 PO; +ceFAZolin 1GM VL ONE; +ceFAZolin 1GM/50ML 50 ML IV ONE; +ePHEDrine SULFATE 50 MG/ML AMP IV PRN; +fentaNYL CITRATE 100 MCG/2 ML VL ONE
[2018-07-08] MEDS: HYDROmorphone HCL 2 MG/ML VL IV PRN ×2 (12:45→12:55)
[2018-07-08 13:08] VITALS: BP 128/93
== END | disposition home or self-care (01) ==
LOC: SUR 08:57
PROVIDERS: ATTEND Surgery
DX: C18.9 Malignant neoplasm of colon, unspecified (principal); I10 Essential (primary) hypertension; E11.9 Type 2 diabetes mellitus without complications; J44.9 Chronic obstructive pulmonary disease, unspecified; E78.5 Hyperlipidemia, unspecified; F32.9 Major depressive disorder, single episode, unspecified; F20.9 Schizophrenia, unspecified; F17.210 Nicotine dependence, cigarettes, uncomplicated; Z79.899 Other long term (current) drug therapy; F41.9 Anxiety disorder, unspecified; Z98.51 Tubal ligation status; Z90.49 Acquired absence of other specified parts of digestive tract; Z98.890 Other specified postprocedural states; Z88.8 Allergy status to other drugs, medicaments and biological substances; Z86.73 Personal history of transient ischemic attack (TIA), and cerebral infarction without residual deficits
CPT/HCPCS: 36415; 36561; 71045; 80053; 81001; 82378; 82962; 85025; 85610; 85730; C1788; J0690; J1100; J1170; J1644; J1815; J2250; J2704; J3010; J1885

== ENCOUNTER → 2018-08-07 | Outpatient (CLI) | payer MEDICARE, MEDICAID ==
[~2018-08-07] MED LIST changes: -ACCU-CHEK COMFORT CURVE STRIP VI ONE; -DexAMETHasone SOD PHOS 10MG/1ML VIAL INJ ONE; -HEPARIN 1,000 UNITS/ml 1ML VIAL ONE; -HEPARIN SODIUM (PORCINE) 5000 UNITS/ML 1ML VIAL ONE; -HYDR-4798 PO; -InsuLIN REG 1unit/0.01ml Soln (100units/ml) ONE; -KETOROLAC TROMETH 30 MG/ML 1ML VIAL IV ONE; -LABETALOL HCL 5 MG/ML 4ML SYRINGE IV PRN; -MIDAZOLAM HCL 1MG/1ML-2 ML VIAL IV PRN; -MIDAZOLAM HCL 1MG/1ML-2 ML VIAL ONE; -MORPHINE SULFATE 4 MG/ML SYR/VIAL IV ONE; -MORPHINE SULFATE 4 MG/ML SYR/VIAL IV PRN; -ONDANSETRON HCL 4 MG/2 ML VIAL IV ONE; +OXY10CRT PO; -PROPOFOL 10 MG/ML 20 ML IV ONE; -ceFAZolin 1GM VL ONE; -ceFAZolin 1GM/50ML 50 ML IV ONE; -ePHEDrine SULFATE 50 MG/ML AMP IV PRN; -fentaNYL CITRATE 100 MCG/2 ML VL ONE
[2018-08-07 09:10] LABS: Basophils # (auto) 0.1 uL; Basophils % (auto) 1.1 % (0.0-2.0); Eosinophils # (auto) 0.2 uL; Hematocrit 39.1 % (36.0-46.0); Hemoglobin 12.7 g/dL (12.2-16.2); Lymphocytes # (auto) 1.8 uL; Lymphocytes % (auto) 37.2 % (10.0-50.0); Mean Corpuscular Hemoglobin 29.2 pg (28.0-32.0); Mean Corpuscular Hgb Conc. 32.5 g/dL (32.0-36.0); Monocytes # (auto) 0.4 uL; Monocytes % (auto) 8.3 % (0.0-12.0); Neutrophils # (auto) 2.4 uL; Neutrophils % (auto) 49.4 % (37.0-80.0); Nucleated Red Blood Cells % 0.1 %; Platelet Count (auto) 286 10^3/uL (140-450); Red Blood Cells 4.34 10^6/uL (4.0-5.20); Red Cell Distribution Width 16.2 % (11.8-14.3)
[2018-08-07 09:37] LABS: Albumin 3.6 g/dL (3.4-5.0); Calcium 9.1 mg/dL (8.5-10.1); Potassium 3.6 mmol/L (3.5-5.1)
[2018-08-07 09:41] LABS: BUN/Creatinine Ratio 10.4; Bilirubin, Total 0.3 mg/dL (0.2-1.0); Total Protein 7.4 g/dL (6.4-8.2)
== END | disposition home or self-care (01) ==
LOC: LAB 08:57
PROVIDERS: ATTEND Internal Medicine
DX: C18.2 Malignant neoplasm of ascending colon (principal)
CPT/HCPCS: 36415; 80053; 82378; 83615; 85025

== ENCOUNTER → 2018-08-20 | Outpatient (CLI) | payer MEDICARE, MEDICAID ==
[2018-08-20 13:22] LABS: Basophils # (auto) 0 uL; Basophils % (auto) 0.8 % (0.0-2.0); Eosinophils # (auto) 0.3 uL; Eosinophils % (auto) 5.8 % (0.0-7.0); Hemoglobin 11.9 g/dL (12.2-16.2); Lymphocytes # (auto) 2.1 uL; Lymphocytes % (auto) 42.1 % (10.0-50.0); Mean Corpuscular Hemoglobin 30.4 pg (28.0-32.0); Mean Corpuscular Hgb Conc. 34.1 g/dL (32.0-36.0); Mean Corpuscular Volume 89.1 fL (80.0-100.0); Monocytes # (auto) 0.4 uL; Neutrophils # (auto) 2.1 uL; Neutrophils % (auto) 42.3 % (37.0-80.0); Nucleated Red Blood Cells % 0.1 %; Platelet Count (auto) 190 10^3/uL (140-450); Red Blood Cells 3.93 10^6/uL (4.0-5.20); Red Cell Distribution Width 15.7 % (11.8-14.3)
[2018-08-20 13:58] LABS: Potassium 3.7 mmol/L (3.5-5.1)
[2018-08-20 14:05] LABS: Albumin 3.4 g/dL (3.4-5.0); BUN/Creatinine Ratio 15.9; Bilirubin, Total 0.4 mg/dL (0.2-1.0); Calcium 8.6 mg/dL (8.5-10.1); Total Protein 6.8 g/dL (6.4-8.2)
== END | disposition home or self-care (01) ==
LOC: LAB 12:58
PROVIDERS: ATTEND Internal Medicine
DX: C18.2 Malignant neoplasm of ascending colon (principal)
CPT/HCPCS: 36415; 80053; 82378; 83615; 85025

== ENCOUNTER → 2018-09-08 | Outpatient (CLI) | payer MEDICARE ==
[2018-09-08 13:51] LABS: Basophils # (auto) 0.1 uL; Eosinophils # (auto) 0.1 uL; Eosinophils % (auto) 1.4 % (0.0-7.0); Hematocrit 41.4 % (36.0-46.0); Hemoglobin 13.6 g/dL (12.2-16.2); Lymphocytes # (auto) 1.9 uL; Mean Corpuscular Hemoglobin 29.4 pg (28.0-32.0); Mean Corpuscular Hgb Conc. 32.9 g/dL (32.0-36.0); Mean Corpuscular Volume 89.4 fL (80.0-100.0); Monocytes # (auto) 0.5 uL; Monocytes % (auto) 8.6 % (0.0-12.0); Neutrophils # (auto) 3.8 uL; Nucleated Red Blood Cells % 0.1 %; Platelet Count (auto) 236 10^3/uL (140-450); Red Blood Cells 4.63 10^6/uL (4.0-5.20); Red Cell Distribution Width 16.2 % (11.8-14.3); White Blood Cell 6.4 10^3/uL (4.4-10.8)
[2018-09-08 14:07] LABS: Albumin 4.1 g/dL (3.4-5.0); Calcium 9.9 mg/dL (8.5-10.1); Potassium 4.3 mmol/L (3.5-5.1)
[2018-09-08 14:11] LABS: Bilirubin, Total 0.4 mg/dL (0.2-1.0); Total Protein 7.9 g/dL (6.4-8.2)
[2018-09-08 14:57] LABS: Free T4 (Free Thyroxine) 1.09 ng/dL (0.89-1.76)
[2018-09-08 14:58] LABS: Folate (Folic Acid) > 24.00 ng/mL (5.38-24)
[2018-09-08 15:07] LABS: Alcohol, Urine < 3.0 mg/dL (0-5); Amphetamine Screen, Urine NEGATIVE (NEGATIVE); Barbiturate Scree,Urine NEGATIVE (NEGATIVE); Benzodiazephine Screen, Urine NEGATIVE (NEGATIVE); Cannabinoid Screen, Urine NEGATIVE (NEGATIVE); Cocaine Screen, Urine NEGATIVE (NEGATIVE); Opiate Scree,Urine NEGATIVE (NEGATIVE); Phencyclidine Screen, Urine NEGATIVE (NEGATIVE)
[2018-09-08 15:14] LABS: Urine Bacteria FEW /hpf (None Seen); Urine Blood Negative /uL (Negative); Urine Mucus FEW (None Seen); Urine Specific Gravity 1.027 (1.001-1.035); Urine WBC 2 /hpf (0 - 5)
== END | disposition home or self-care (01) ==
LOC: LAB 13:13
PROVIDERS: ATTEND Internal Medicine
DX: C18.2 Malignant neoplasm of ascending colon (principal); I10 Essential (primary) hypertension; E11.9 Type 2 diabetes mellitus without complications; F17.200 Nicotine dependence, unspecified, uncomplicated; F41.8 Other specified anxiety disorders; F33.0 Major depressive disorder, recurrent, mild; E78.5 Hyperlipidemia, unspecified; Z79.899 Other long term (current) drug therapy
CPT/HCPCS: 36415; 80053; 80061; 80307; 81001; 82043; 82378; 82607; 82746; 83036; 83615; 84439; 84443; 85025

== ENCOUNTER → 2018-09-21 | Outpatient (CLI) | payer MEDICARE ==
[2018-09-21 12:51] LABS: Basophils # (auto) 0.1 uL; Basophils % (auto) 0.8 % (0.0-2.0); Eosinophils # (auto) 0.3 uL; Eosinophils % (auto) 3.3 % (0.0-7.0); Hematocrit 41.5 % (36.0-46.0); Hemoglobin 13.5 g/dL (12.2-16.2); Lymphocytes # (auto) 3.1 uL; Lymphocytes % (auto) 40.7 % (10.0-50.0); Mean Corpuscular Hgb Conc. 32.6 g/dL (32.0-36.0); Monocytes # (auto) 0.6 uL; Monocytes % (auto) 8.5 % (0.0-12.0); Neutrophils # (auto) 3.5 uL; Neutrophils % (auto) 46.7 % (37.0-80.0); Nucleated Red Blood Cells % 0.1 %; Platelet Count (auto) 223 10^3/uL (140-450); Red Blood Cells 4.51 10^6/uL (4.0-5.20); Red Cell Distribution Width 16.5 % (11.8-14.3); White Blood Cell 7.5 10^3/uL (4.4-10.8)
[2018-09-21 13:05] LABS: Albumin 3.8 g/dL (3.4-5.0); BUN/Creatinine Ratio 22.1; Calcium 9.5 mg/dL (8.5-10.1); Total Protein 7.7 g/dL (6.4-8.2)
== END | disposition home or self-care (01) ==
LOC: LAB 10:56
PROVIDERS: ATTEND Internal Medicine
DX: C18.2 Malignant neoplasm of ascending colon (principal)
CPT/HCPCS: 36415; 80053; 83615; 85025

== ENCOUNTER → 2018-09-23 | Outpatient (CLI) | payer MEDICARE ==
[2018-09-23 09:59] LABS: Basophils # (auto) 0.1 uL; Basophils % (auto) 1.1 % (0.0-2.0); Eosinophils # (auto) 0.2 uL; Eosinophils % (auto) 3.8 % (0.0-7.0); Hemoglobin 12.4 g/dL (12.2-16.2); Lymphocytes # (auto) 1.6 uL; Lymphocytes % (auto) 31.4 % (10.0-50.0); Mean Corpuscular Hemoglobin 29.8 pg (28.0-32.0); Mean Corpuscular Hgb Conc. 32.6 g/dL (32.0-36.0); Mean Corpuscular Volume 91.4 fL (80.0-100.0); Monocytes # (auto) 0.3 uL; Monocytes % (auto) 6.4 % (0.0-12.0); Neutrophils % (auto) 57.3 % (37.0-80.0); Nucleated Red Blood Cells % 0.1 %; Platelet Count (auto) 184 10^3/uL (140-450); Red Blood Cells 4.16 10^6/uL (4.0-5.20); Red Cell Distribution Width 16.4 % (11.8-14.3); White Blood Cell 5.2 10^3/uL (4.4-10.8)
[2018-09-23 10:09] LABS: Anion Gap 12 (5-15); BUN/Creatinine Ratio 17.6; Blood Urea Nitrogen 15 mg/dL (7-18); Calcium 8.9 mg/dL (8.5-10.1); Carbon Dioxide 23 mmol/L (21-32); Chloride 108 mmol/L (98-107); GFR African American 89 mL/min; GFR Non-African American 74 mL/min; Glucose 243 mg/dL (74-106); Potassium 4.2 mmol/L (3.5-5.1); Sodium 143 mmol/L (136-145)
[2018-09-23 10:25] LABS: INR < 0.93 (0.9-1.15)
== END | disposition home or self-care (01) ==
LOC: LAB 09:34
PROVIDERS: ATTEND Internal Medicine
DX: C18.2 Malignant neoplasm of ascending colon (principal); I10 Essential (primary) hypertension; E78.00 Pure hypercholesterolemia, unspecified; E11.40 Type 2 diabetes mellitus with diabetic neuropathy, unspecified
CPT/HCPCS: 36415; 80048; 82378; 85025; 85610; 85730

== ENCOUNTER → 2018-10-12 | Outpatient (CLI) | payer MEDICARE, MEDICAID ==
[2018-10-12 09:24] LABS: Basophils # (auto) 0.1 uL; Basophils % (auto) 1.9 % (0.0-2.0); Eosinophils # (auto) 0.1 uL; Eosinophils % (auto) 3.1 % (0.0-7.0); Hematocrit 39.8 % (36.0-46.0); Lymphocytes # (auto) 1.8 uL; Lymphocytes % (auto) 37.6 % (10.0-50.0); Mean Corpuscular Hemoglobin 29.8 pg (28.0-32.0); Mean Corpuscular Hgb Conc. 32.6 g/dL (32.0-36.0); Mean Corpuscular Volume 91.4 fL (80.0-100.0); Monocytes # (auto) 0.4 uL; Monocytes % (auto) 7.6 % (0.0-12.0); Neutrophils # (auto) 2.4 uL; Neutrophils % (auto) 49.8 % (37.0-80.0); Nucleated Red Blood Cells % 0.1 %; Platelet Count (auto) 221 10^3/uL (140-450); Red Blood Cells 4.35 10^6/uL (4.0-5.20); Red Cell Distribution Width 16.5 % (11.8-14.3); White Blood Cell 4.8 10^3/uL (4.4-10.8)
[2018-10-12 09:53] LABS: Potassium 3.5 mmol/L (3.5-5.1)
[2018-10-12 09:59] LABS: Albumin 3.6 g/dL (3.4-5.0); BUN/Creatinine Ratio 17.6; Bilirubin, Total 0.4 mg/dL (0.2-1.0); Total Protein 7.5 g/dL (6.4-8.2)
== END | disposition home or self-care (01) ==
LOC: LAB 09:05
PROVIDERS: ATTEND Internal Medicine
DX: C18.2 Malignant neoplasm of ascending colon (principal)
CPT/HCPCS: 36415; 80053; 83615; 85025

== ENCOUNTER → 2018-10-26 | Outpatient (CLI) | payer MEDICARE, MEDICAID ==
[2018-10-26 09:34] LABS: Basophils # (auto) 0 uL; Basophils % (auto) 0.8 % (0.0-2.0); Eosinophils # (auto) 0.2 uL; Eosinophils % (auto) 3.1 % (0.0-7.0); Hematocrit 37.5 % (36.0-46.0); Hemoglobin 12.3 g/dL (12.2-16.2); Lymphocytes # (auto) 2.4 uL; Mean Corpuscular Hemoglobin 30.3 pg (28.0-32.0); Mean Corpuscular Hgb Conc. 32.7 g/dL (32.0-36.0); Mean Corpuscular Volume 92.7 fL (80.0-100.0); Monocytes # (auto) 0.5 uL; Monocytes % (auto) 8.9 % (0.0-12.0); Neutrophils # (auto) 2.3 uL; Neutrophils % (auto) 43.2 % (37.0-80.0); Nucleated Red Blood Cells % 0.1 %; Platelet Count (auto) 198 10^3/uL (140-450); Red Blood Cells 4.05 10^6/uL (4.0-5.20); Red Cell Distribution Width 17.4 % (11.8-14.3); White Blood Cell 5.3 10^3/uL (4.4-10.8)
[2018-10-26 10:14] LABS: Albumin 3.4 g/dL (3.4-5.0); Calcium 8.8 mg/dL (8.5-10.1); Potassium 3.5 mmol/L (3.5-5.1)
[2018-10-26 10:17] LABS: Bilirubin, Total 0.2 mg/dL (0.2-1.0); Total Protein 6.9 g/dL (6.4-8.2)
== END | disposition home or self-care (01) ==
LOC: LAB 08:55
PROVIDERS: ATTEND Internal Medicine
DX: C18.2 Malignant neoplasm of ascending colon (principal)
CPT/HCPCS: 36415; 80053; 82378; 83615; 85025

== ENCOUNTER → 2018-12-02 | Outpatient (CLI) | payer MEDICARE, MEDICAID ==
[2018-12-02 10:29] LABS: Basophils # (auto) 0.1 uL; Basophils % (auto) 1.2 % (0.0-2.0); Eosinophils # (auto) 0.1 uL; Eosinophils % (auto) 2.3 % (0.0-7.0); Hematocrit 42.4 % (36.0-46.0); Hemoglobin 14.2 g/dL (12.2-16.2); Lymphocytes # (auto) 1.6 uL; Lymphocytes % (auto) 27.9 % (10.0-50.0); Mean Corpuscular Hemoglobin 31.1 pg (28.0-32.0); Mean Corpuscular Hgb Conc. 33.5 g/dL (32.0-36.0); Mean Corpuscular Volume 92.7 fL (80.0-100.0); Monocytes # (auto) 0.4 uL; Monocytes % (auto) 6.4 % (0.0-12.0); Neutrophils # (auto) 3.5 uL; Neutrophils % (auto) 62.2 % (37.0-80.0); Platelet Count (auto) 188 10^3/uL (140-450); Red Blood Cells 4.58 10^6/uL (4.0-5.20); Red Cell Distribution Width 17.3 % (11.8-14.3); White Blood Cell 5.6 10^3/uL (4.4-10.8)
[2018-12-02 11:00] LABS: Albumin 3.5 g/dL (3.4-5.0); Calcium 9.1 mg/dL (8.5-10.1); Potassium 3.8 mmol/L (3.5-5.1)
[2018-12-02 11:14] LABS: BUN/Creatinine Ratio 18.5; Bilirubin, Total 0.4 mg/dL (0.2-1.0); Total Protein 7.2 g/dL (6.4-8.2)
== END | disposition home or self-care (01) ==
LOC: LAB 08:38
PROVIDERS: ATTEND Internal Medicine
DX: C18.2 Malignant neoplasm of ascending colon (principal)
CPT/HCPCS: 36415; 80053; 83615; 85025

== ENCOUNTER 2018-12-04 09:34 | Emergency (ER) | payer MEDICARE, MEDICAID ==
[~2018-12-04] VITALS: Ht 177.8 cm; Wt 81.6 kg
[2018-12-04] MEDS ORDERED: SODIUM CHLORIDE 0.9% 1,000 ML IV ONE ×2 (09:58)
[2018-12-04] MEDS ORDERED: InsuLIN REG 1unit/0.01ml Soln (100units/ml) IV ONE (10:00)
[2018-12-04] MEDS ORDERED: KETOROLAC TROMETH 30 MG/ML 1ML VIAL IV ONE (10:30)
[2018-12-04 10:37] LABS: Urine WBC None Seen /hpf (0 - 5)
[2018-12-04 10:44] LABS: Basophils # (auto) 0 uL; Basophils % (auto) 0.9 % (0.0-2.0); Eosinophils # (auto) 0.1 uL; Eosinophils % (auto) 2.4 % (0.0-7.0); Hematocrit 41.1 % (36.0-46.0); Hemoglobin 13.9 g/dL (12.2-16.2); Lymphocytes # (auto) 1.1 uL; Mean Corpuscular Hemoglobin 30.8 pg (28.0-32.0); Mean Corpuscular Hgb Conc. 33.7 g/dL (32.0-36.0); Mean Corpuscular Volume 91.4 fL (80.0-100.0); Monocytes # (auto) 0.3 uL; Monocytes % (auto) 5.4 % (0.0-12.0); Neutrophils # (auto) 3.3 uL; Neutrophils % (auto) 68.3 % (37.0-80.0); Nucleated Red Blood Cells % 0.1 %; Platelet Count (auto) 174 10^3/uL (140-450); White Blood Cell 4.8 10^3/uL (4.4-10.8)
[2018-12-04 10:47] LABS: Urine Bacteria NONE SEEN /hpf (None Seen); Urine Blood Negative /uL (Negative); Urine Specific Gravity 1.036 (1.001-1.035)
[2018-12-04] MEDS ORDERED: HYDROcodone-ACET 10/325MG TAB PO ONE (11:00)
[2018-12-04 11:03] LABS: Alanine Aminotransferase 28 U/L (13-56); Albumin 3.6 g/dL (3.4-5.0); Anion Gap 8 (5-15); Aspartate Aminotransferase 14 U/L (15-37); Blood Urea Nitrogen 12 mg/dL (7-18); Calcium 9.2 mg/dL (8.5-10.1); Carbon Dioxide 22 mmol/L (21-32); Chloride 108 mmol/L (98-107); Glucose 387 mg/dL (74-106); INR < 0.93 (0.9-1.15); Partial Thromboplastin Time 26.2 sec (23.64-32.05); Potassium 3.6 mmol/L (3.5-5.1); Sodium 138 mmol/L (136-145)
[2018-12-04 11:08] LABS: Alkaline Phosphatase 119 U/L (45-117); BUN/Creatinine Ratio 15.6; Bilirubin, Total 0.5 mg/dL (0.2-1.0); GFR African American 100 mL/min; GFR Non-African American 83 mL/min; Total Protein 7.5 g/dL (6.4-8.2)
[2018-12-04] MEDS ORDERED: MORPHINE SULF INJ 2 MG/ML SYRINGE 1ML IV ONE (12:15)
[2018-12-04 13:20] VITALS: BP 139/92
== END 2018-12-04 13:21 | disposition home or self-care (01) ==
LOC: ER 09:34
DX: E86.0 Dehydration (principal); E11.9 Type 2 diabetes mellitus without complications; J45.909 Unspecified asthma, uncomplicated; E78.5 Hyperlipidemia, unspecified; I10 Essential (primary) hypertension; Z98.51 Tubal ligation status; Z90.710 Acquired absence of both cervix and uterus; Z88.6 Allergy status to analgesic agent
CPT/HCPCS: 36415; 71045; 80053; 81001; 82962; 84484; 85025; 85610; 85730; 93005; 94761; 96361; 96374; 96375; 99284; J1815; J2270; J1885

== ENCOUNTER → 2018-12-22 | Outpatient (CLI) | payer MEDICARE, MEDICAID ==
[~2018-12-22] MED LIST changes: +CHOL20007 OR; +FERR-20 PO
[2018-12-22 13:38] LABS: Basophils # (auto) 0.1 uL; Basophils % (auto) 1.5 % (0.0-2.0); Eosinophils # (auto) 0.1 uL; Eosinophils % (auto) 3.4 % (0.0-7.0); Hematocrit 43.1 % (36.0-46.0); Hemoglobin 14.3 g/dL (12.2-16.2); Lymphocytes # (auto) 1.4 uL; Lymphocytes % (auto) 41.3 % (10.0-50.0); Mean Corpuscular Hgb Conc. 33.1 g/dL (32.0-36.0); Mean Corpuscular Volume 93.7 fL (80.0-100.0); Monocytes # (auto) 0.4 uL; Monocytes % (auto) 10.8 % (0.0-12.0); Neutrophils # (auto) 1.4 uL; Platelet Count (auto) 231 10^3/uL (140-450); White Blood Cell 3.3 10^3/uL (4.4-10.8)
[2018-12-22 14:00] LABS: Albumin 3.5 g/dL (3.4-5.0); Calcium 9.1 mg/dL (8.5-10.1); Potassium 3.8 mmol/L (3.5-5.1)
[2018-12-22 14:13] LABS: BUN/Creatinine Ratio 12.5; Bilirubin, Total 0.3 mg/dL (0.2-1.0); Total Protein 7.3 g/dL (6.4-8.2)
== END | disposition home or self-care (01) ==
LOC: LAB 13:07
PROVIDERS: ATTEND Internal Medicine
DX: C18.2 Malignant neoplasm of ascending colon (principal)
CPT/HCPCS: 36415; 80053; 82378; 83615; 85025

== ENCOUNTER 2018-12-24 12:29 | Inpatient (IN) | payer MEDICARE, MEDICAID ==
[~2018-12-24] VITALS: Ht 177.8 cm; Wt 85.7 kg
[~2018-12-24 12:29] MED LIST changes: -CHOL20007 OR; -FERR-20 PO
[2018-12-24] MEDS ORDERED: SODIUM CHLORIDE 0.9% 1,000 ML IVB ONE (13:41)
[2018-12-24 13:42] LABS: Basophils # (auto) 0 uL; Eosinophils # (auto) 0.1 uL; Eosinophils % (auto) 2.7 % (0.0-7.0); Hematocrit 41.8 % (36.0-46.0); Hemoglobin 13.9 g/dL (12.2-16.2); Lymphocytes # (auto) 1.1 uL; Mean Corpuscular Hemoglobin 30.8 pg (28.0-32.0); Mean Corpuscular Hgb Conc. 33.2 g/dL (32.0-36.0); Mean Corpuscular Volume 92.7 fL (80.0-100.0); Monocytes # (auto) 0.3 uL; Monocytes % (auto) 6.5 % (0.0-12.0); Neutrophils # (auto) 2.5 uL; Neutrophils % (auto) 62.8 % (37.0-80.0); Nucleated Red Blood Cells % 0.1 %; Platelet Count (auto) 209 10^3/uL (140-450); Red Blood Cells 4.51 10^6/uL (4.0-5.20); Red Cell Distribution Width 15.8 % (11.8-14.3)
[2018-12-24] MEDS ORDERED: HYDROmorphone HCL 2 MG/ML VL IV ONE (13:45)
[2018-12-24] MEDS ORDERED: PROCHLORPERAZINE EDISYLATE 5 MG/ML 2ML VIAL IV ONE (13:45)
[2018-12-24 14:01] LABS: Albumin 3.4 g/dL (3.4-5.0); BUN/Creatinine Ratio 20.9; Calcium 8.9 mg/dL (8.5-10.1); Potassium 3.4 mmol/L (3.5-5.1)
[2018-12-24 14:04] LABS: Bilirubin, Total 0.5 mg/dL (0.2-1.0); Total Protein 7.2 g/dL (6.4-8.2)
[2018-12-24] MEDS ORDERED: LIDOCAINE 1% HCL (LOCAL ANESTH.) INJ 20ML MDV ONE (16:37)
[2018-12-24] MEDS ORDERED: SODIUM CHLORIDE 0.9% 1,000 ML IV SCH (16:55)
[2018-12-24] MEDS ORDERED: DEXTROSE (50%) 50ML SYRG IV PRN (17:00)
[2018-12-24] MEDS ORDERED: HYDROcodone-ACET 5/325MG TAB PO PRN (17:00)
[2018-12-24] MEDS ORDERED: ACETAMINOPHEN 500 MG TAB PO PRN (17:00)
[2018-12-24] MEDS ORDERED: MORPHINE SULFATE 4 MG/ML SYR/VIAL IV PRN (17:00)
[2018-12-24] MEDS ORDERED: TEMAZEPAM 15 MG CAP PO PRN (17:00)
[2018-12-24] MEDS ORDERED: PROMETHAZINE HCL 25 MG/ML 1ML IV PRN (17:00)
[2018-12-24 17:15] LABS: Urine Bacteria FEW /hpf (None Seen); Urine Blood Negative /uL (Negative); Urine Mucus FEW (None Seen); Urine Specific Gravity 1.028 (1.001-1.035); Urine WBC 2 /hpf (0 - 5)
[2018-12-24] MEDS ORDERED: MORPHINE SULF INJ 2 MG/ML SYRINGE 1ML IV PRN (17:15)
[2018-12-24] MEDS ORDERED: NITROGLYCERIN 0.4 MG SL TAB SL PRN (17:15)
[2018-12-24] MEDS: SOD CHL 0.9%/ KCL 40MEQ 1,000 ML IV SCH (17:18)
[2018-12-24] MEDS: POTASSIUM CHL 20MEQ/100ML 100 ML IV SCH ×2 (17:19→19:15)
[2018-12-24] MEDS: FAMOTIDINE (10MG/ML) 2ML VL IV SCH (17:19)
[2018-12-24] MEDS: ACCU-CHEK COMFORT CURVE STRIP VI SCH ×2 (17:33→22:24)
[2018-12-24] MEDS: InsuLIN REG 1unit/0.01ml Soln (100units/ml) SC SCH ×2 (17:41→22:24)
[2018-12-24] MEDS: oxyCODONE ER 10 MG TAB PO SCH (18:18)
--- NOTE | 2018-12-24 19:50 | NUR ---
Patient admitted to room 274B. Alert and oriented x4. Complaining of pain "all over". Recently was given oxycodone in ER. No nausea or vomiting at this time, states " I ate some crackers and broth downstairs and I didnt get sick, they told me I can eat food when I get up here." Diet orders are for clear liquid at this time. Will page MD and request. Port a cath to HANG that was accessed today during her chemo therapy. Says she was sent here to our ER straight from chemo and needle was not removed. Pt asking me to remove the stiles needle for her. Will aslo ask the MD for that order as well. IV to right FA patent. Potassium hanging at bedside. Will check orders to administer. Oriented to room. Will swab nares for MRSA due to recent hospital stay and discharged on 12/04. Call light within reach.
[2018-12-24 20:21] VITALS: BP 114/70
[2018-12-24] MEDS ORDERED: OXY10CRT PO (20:44)
[2018-12-24] MEDS ORDERED: CHOL20007 OR (20:44)
[2018-12-24] MEDS ORDERED: FERR-20 PO (20:44)
--- NOTE | 2018-12-24 20:47 | NUR ---
Med Rec: Patient states she also uses 15 units of regular insulin TID with meals and uses an insulin pen 25 units daily. Unable to add to med rec related to no option.
[2018-12-24] MEDS: HYDROmorphone HCL 2 MG/ML VL IV PRN (20:49)
[2018-12-24] MEDS ORDERED: oxyCODONE ER 10 MG TAB PO SCH (22:00)
[2018-12-24] MEDS: carBAMazepine 200 MG TAB PO SCH (22:23)
[2018-12-24] MEDS: GABAPENTIN 300 MG CAP PO SCH (22:24)
--- NOTE | 2018-12-24 23:00 | NUR ---
Received call back from hospitalist Steve.Did not want to change her diet at this time. Patient made aware. No nausea/vomoting on the floor thus far. Receiving Krider at this time through R FA IV. Denies pain in and around IV insertion site. No infiltration signs and symptoms noted. Restoril given per patient request for sleep per orders. Will continue to monitor. Call light within reach
[2018-12-25] MEDS: HYDROmorphone HCL 2 MG/ML VL IV PRN ×3 (02:29→13:58)
[2018-12-25] MEDS: SOD CHL 0.9%/ KCL 40MEQ 1,000 ML IV SCH ×2 (03:15→03:18)
[2018-12-25 05:00] VITALS: BP 114/70
--- NOTE | 2018-12-25 05:26 | NUR ---
Spoke with hospitalist and received order to remove stiles needle from HANG port a cath. Patient adamant about getting diet orders and eating breakfast. Explained to her she will most likely have to wait for her attending to see her because hospitalist will not order it at this time.
[2018-12-25] MEDS: oxyCODONE ER 10 MG TAB PO SCH ×3 (06:00→12:01)
--- NOTE | 2018-12-25 06:00 | NUR ---
Flushed port a cath with NS as well as heparin flush. Removed stiles needle from port a cath using aseptic technique. Minimal bleeding noted. Applied tegaderm to site. Tolerated well.
--- NOTE | 2018-12-25 06:48 | NUR ---
Chirag hospitalist. Patients IV went bad and leaked down her arm while administering pain medication. Patient has stage IV colon cancer and having pain 9/10. States she did not receive any of the medication. Requesting a 1 x dose of her dilauded. Allergy to morphine
[2018-12-25] MEDS: FAMOTIDINE (10MG/ML) 2ML VL IV SCH (06:52)
[2018-12-25] MEDS: InsuLIN REG 1unit/0.01ml Soln (100units/ml) SC SCH ×2 (06:53→12:11)
[2018-12-25] MEDS: ACCU-CHEK COMFORT CURVE STRIP VI SCH ×2 (06:54→11:30)
[2018-12-25] MEDS ORDERED: HYDROmorphone HCL 2 MG/ML VL IV ONE (07:15)
--- NOTE | 2018-12-25 07:30 | NUR ---
Endorsed care to Alphonso CABAN. Failed attempt of IV to R AC and R FA. Patient having pain and slightly irritable, wants her pain medication. Also wants orders for a regular diet and was unable to receive an order from Steve last night. Roommate started to seize and is being attended to at the moment. Informed ROXIE Duvall that patient is without an IV at this time as well.
--- NOTE | 2018-12-25 07:45 | NUR ---
OPENING SHIFT NOTE PATIENT SITTING IN BED. RESPIRATIONS EVEN AND UNLABORED. NO S/S OF DISTRESS NOTED AT THIS TIME. PATIENT HAS NO IV AT THIS TIME. ATTEMPTED IV X2 WITH NO SUCCESS. CONTACTED CHARGE NURSE WHICH INSTRUCTED THIS RN TO CALL RESOURCE NURSE BORIS. STATES SHE WILL COME BY TO DO IV SOON. PATIENT COMPLAINING OF PAIN 8/10 IN A GENERALIZED AREA OF HER BODY. PATIENT UPDATED ON POC. ALL QUESTIONS ANSWERED. BED IN LOWEST LOCKED POSITION WITH CALL LIGHT WITHIN REACH.
[2018-12-25 09:00] VITALS: BP 116/82
--- NOTE | 2018-12-25 09:45 | NUR ---
IV insertion IV access obtained, via clean sterile technique by inserting 22 gauge catheter at R HAND after 2 attempt(s). IV secured properly. No trauma to site. Patient tolerated well. NOTE:
[2018-12-25] MEDS: carBAMazepine 200 MG TAB PO SCH (09:47)
[2018-12-25] MEDS: GABAPENTIN 300 MG CAP PO SCH (09:47)
[2018-12-25 13:00] VITALS: BP 126/75
--- NOTE | 2018-12-25 13:30 | NUR ---
Eric MEAD AT BEDSIDE. UPDATED ON PATIENT STATUS. WILL CONTINUE CARE.
--- NOTE | 2018-12-25 14:30 | NUR ---
Eric SCHERER AT BEDSIDE.
--- NOTE | 2018-12-25 16:10 | NUR ---
RECEIVED ORDER TO DISCHARGE PATIENT. INFORMED Eric MEAD OF HEMATOLOGY/ONCOLOGY CONSULT. STATED OK TO SEND PATIENT HOME. INFORMED PATIENT. OK WITH DISCHARGE. WILL FOLLOW THROUGH.
--- NOTE | 2018-12-25 16:30 | NUR ---
PER CHARGE NURSE, DUE TO DOWNTIME. SPEAK TO TOUCH UP EDGER AND USE DOWNTIME DISCHARGE PAPERWORK TO DISCHARGE PATIENT.
--- NOTE | 2018-12-25 17:00 | NUR ---
PATIENT DISCHARGED. ALL DOWNTIME PAPERWORK SIGNED. INFORMED PATIENT TO PLEASE FOLLOW UP WITH PCP AND HEMATOLOGY AND ONCOLOGY DOCTORS ORDERED. INFORMED PATIENT TO PLEASE COME BACK TO MEDICAL RECORDS TO SENIOR JAVA ARCHITECT DISCHARGE PAPERWORK AND INSTRUCTIONS. PATIENT VERBALIZED UNDERSTANDING. IV DISCONTINUED. TELE MONITOR SENT BACK TO ICU. PATIENT AMBULATED OUT WITH FAMILY AND STAFF MEMBER IN NO S/S OF DISTRESS.
== END 2018-12-25 18:03 | disposition home or self-care (01) | DRG 375 ==
LOC: ER 12:32 → TELE 12:33 → TELE-WESTW 19:54
PROVIDERS: ADMIT Internal Medicine; ATTEND Internal Medicine Pulmonary Disease
DX: C19 Malignant neoplasm of rectosigmoid junction (principal); C78.7 Secondary malignant neoplasm of liver and intrahepatic bile duct; R55 Syncope and collapse; E11.65 Type 2 diabetes mellitus with hyperglycemia; I10 Essential (primary) hypertension; J45.909 Unspecified asthma, uncomplicated; E78.5 Hyperlipidemia, unspecified; R01.1 Cardiac murmur, unspecified; E83.52 Hypercalcemia; F12.90 Cannabis use, unspecified, uncomplicated; F17.210 Nicotine dependence, cigarettes, uncomplicated; F41.9 Anxiety disorder, unspecified; K29.70 Gastritis, unspecified, without bleeding; Z80.9 Family history of malignant neoplasm, unspecified; Z85.048 Personal history of other malignant neoplasm of rectum, rectosigmoid junction, and anus; Z86.73 Personal history of transient ischemic attack (TIA), and cerebral infarction without residual deficits; Z90.710 Acquired absence of both cervix and uterus; Z92.21 Personal history of antineoplastic chemotherapy; Z90.49 Acquired absence of other specified parts of digestive tract
CPT/HCPCS: 36415; 80053; 81001; 82378; 82962; 83615; 83690; 85025; 87081; 94761; 96361; 96374; 96375; G0378; J1642; J1815; J2001; J3480; J3490

== ENCOUNTER → 2019-01-18 | Outpatient (CLI) | payer MEDICARE, MEDICAID ==
[~2019-01-18] MED LIST changes: -CHOL100040 PO; +CHOL20007 OR; +FERR-20 PO; -FERR220E4 OR; +INSLANTI SC; +METF-372 PO
[2019-01-18 09:57] LABS: Basophils # (auto) 0.1 uL; Basophils % (auto) 1.1 % (0.0-2.0); Eosinophils # (auto) 0.1 uL; Eosinophils % (auto) 1.4 % (0.0-7.0); Hematocrit 42.7 % (36.0-46.0); Hemoglobin 14.3 g/dL (12.2-16.2); Lymphocytes # (auto) 1.7 uL; Lymphocytes % (auto) 36.8 % (10.0-50.0); Mean Corpuscular Hemoglobin 31.5 pg (28.0-32.0); Mean Corpuscular Hgb Conc. 33.6 g/dL (32.0-36.0); Mean Corpuscular Volume 93.9 fL (80.0-100.0); Monocytes # (auto) 0.4 uL; Monocytes % (auto) 8.1 % (0.0-12.0); Neutrophils # (auto) 2.4 uL; Neutrophils % (auto) 52.6 % (37.0-80.0); Nucleated Red Blood Cells % 0.2 %; Platelet Count (auto) 185 10^3/uL (140-450); Red Blood Cells 4.55 10^6/uL (4.0-5.20); Red Cell Distribution Width 15.7 % (11.8-14.3); White Blood Cell 4.6 10^3/uL (4.4-10.8)
[2019-01-18 10:17] LABS: Albumin 3.4 g/dL (3.4-5.0); Calcium 8.7 mg/dL (8.5-10.1); Potassium 3.8 mmol/L (3.5-5.1)
[2019-01-18 10:20] LABS: BUN/Creatinine Ratio 9.9; Bilirubin, Total 0.4 mg/dL (0.2-1.0); Total Protein 7.1 g/dL (6.4-8.2)
== END | disposition home or self-care (01) ==
LOC: LAB 09:50
PROVIDERS: ATTEND Internal Medicine
DX: C18.2 Malignant neoplasm of ascending colon (principal); F31.9 Bipolar disorder, unspecified; F20.9 Schizophrenia, unspecified; Z87.09 Personal history of other diseases of the respiratory system; Z90.710 Acquired absence of both cervix and uterus; Z88.6 Allergy status to analgesic agent; Z87.891 Personal history of nicotine dependence; Z87.898 Personal history of other specified conditions; Z98.890 Other specified postprocedural states
CPT/HCPCS: 36415; 80053; 83615; 85025

== ENCOUNTER 2019-01-21 16:42 | Inpatient (IN) | payer MEDICARE, MEDICAID ==
[~2019-01-21] VITALS: Ht 177.8 cm; Wt 82.0 kg
[~2019-01-21 16:42] MED LIST changes: -INSLANTI SC; -METF-372 PO
[2019-01-21] MEDS ORDERED: SODIUM CHLORIDE 0.9% 1,000 ML IV ONE (17:53)
[2019-01-21] MEDS ORDERED: InsuLIN REG 1unit/0.01ml Soln (100units/ml) IV ONE (18:00)
[2019-01-21] MEDS ORDERED: ONDANSETRON HCL 4 MG/2 ML VIAL IV ONE (18:00)
[2019-01-21] MEDS ORDERED: HYDROmorphone HCL 2 MG/ML VL IV ONE (18:00)
[2019-01-21 18:46] LABS: Albumin 3.7 g/dL (3.4-5.0); BUN/Creatinine Ratio 19.1; Calcium 9.4 mg/dL (8.5-10.1); Magnesium 2.2 mg/dL (1.6-2.6); Potassium 3.5 mmol/L (3.5-5.1)
[2019-01-21 18:48] LABS: Bilirubin, Total 0.5 mg/dL (0.2-1.0); Total Protein 7.6 g/dL (6.4-8.2)
[2019-01-21 18:49] LABS: Basophils # (auto) 0.1 uL; Basophils % (auto) 1.9 % (0.0-2.0); Eosinophils # (auto) 0.1 uL; Eosinophils % (auto) 1.1 % (0.0-7.0); Hematocrit 46.2 % (36.0-46.0); Hemoglobin 15.4 g/dL (12.2-16.2); Lymphocytes # (auto) 2.2 uL; Lymphocytes % (auto) 37.5 % (10.0-50.0); Mean Corpuscular Hemoglobin 31.3 pg (28.0-32.0); Mean Corpuscular Hgb Conc. 33.3 g/dL (32.0-36.0); Monocytes # (auto) 0.1 uL; Neutrophils # (auto) 3.3 uL; Neutrophils % (auto) 57.5 % (37.0-80.0); Nucleated Red Blood Cells % 0.5 %; Platelet Count (auto) 200 10^3/uL (140-450); Red Blood Cells 4.92 10^6/uL (4.0-5.20); Red Cell Distribution Width 15.8 % (11.8-14.3); White Blood Cell 5.8 10^3/uL (4.4-10.8)
[2019-01-21] MEDS ORDERED: DEXTROSE (50%) 50ML SYRG IV PRN (22:00)
[2019-01-21] MEDS ORDERED: TEMAZEPAM 15 MG CAP PO PRN (22:00)
[2019-01-21] MEDS ORDERED: ACETAMINOPHEN 325 MG TAB PO PRN (22:00)
[2019-01-21] MEDS: ATORVASTATIN 20 MG TAB PO SCH (22:49)
[2019-01-21] MEDS: GABAPENTIN 300 MG CAP PO SCH (22:49)
[2019-01-21] MEDS: ONDANSETRON HCL 4 MG/2 ML VIAL IV PRN (22:50)
[2019-01-21] MEDS: MORPHINE SULFATE 4 MG/ML SYR/VIAL IV PRN (22:50)
[2019-01-21] MEDS: carBAMazepine 200 MG TAB PO SCH (22:50)
--- NOTE | 2019-01-21 23:10 | NUR ---
MS admit from ER KARLA ASHLEY admitted to MS. Patient oriented to Jesika Beth, primary RN, unit, room, bed, and unit policies regarding patient care and visiting hours. Patient weighed by bedscale and encouraged to call if they need something. All questions and concerns addressed, patient verbalized understanding. Note:
[2019-01-21 23:38] VITALS: BP 131/72
[2019-01-22] MEDS: ACCU-CHEK COMFORT CURVE STRIP VI SCH ×5 (00:14→23:05)
[2019-01-22] MEDS: InsuLIN REG 1unit/0.01ml Soln (100units/ml) SC SCH ×5 (00:15→23:05)
[2019-01-22] MEDS ORDERED: PNEUMOCOCCAL VACC POLYS 25 MCG/0.5 ML VIAL IM ONE (01:00)
[2019-01-22] MEDS: HYDROcodone-ACET 5/325MG TAB PO PRN ×4 (01:54→22:50)
[2019-01-22 05:50] VITALS: BP 117/71
[2019-01-22] MEDS: MORPHINE SULFATE 4 MG/ML SYR/VIAL IV PRN ×3 (06:23→20:21)
[2019-01-22 07:43] LABS: BUN/Creatinine Ratio 23.5; Calcium 8.3 mg/dL (8.5-10.1); Potassium 3.2 mmol/L (3.5-5.1)
--- NOTE | 2019-01-22 07:45 | NUR ---
PT NOTED TO BE SLEEPING SOUNDLY IN BED AND WAS EASILY ROUSABLE. PT VOICED NO C/O PAIN/ DISCOMFORT AT THIS TIME AND PT WAS IN NO DISTRESS. WILL CONTINUE TO MONITOR PT.
[2019-01-22 09:00] VITALS: BP 106/72
[2019-01-22] MEDS: carBAMazepine 200 MG TAB PO SCH ×2 (09:36→22:18)
[2019-01-22] MEDS: GABAPENTIN 300 MG CAP PO SCH ×2 (09:36→22:18)
[2019-01-22 13:00] VITALS: BP 105/70
[2019-01-22] MEDS: ONDANSETRON HCL 4 MG/2 ML VIAL IV PRN ×2 (14:06→20:21)
[2019-01-22] MEDS: POTASSIUM CHL 20 Meq TABLET PO SCH ×2 (15:22→17:27)
[2019-01-22 17:00] VITALS: BP 104/70
--- NOTE | 2019-01-22 18:42 | NUR ---
PT TOOK DIET AND FLUIDS WELL. PT VOICED NO C/O PAIN AT THIS TIME. WAS MEDICATED PRN FOR PAIN PER ORDERS. NO CHANGES NOTED IN PT'S CONDITION.
[2019-01-22] MEDS ORDERED: ENOXAPARIN SOD 40 MG/0.4 ML SYRINGE SC ONE (20:00)
[2019-01-22 22:00] VITALS: BP 98/63
[2019-01-22] MEDS: ATORVASTATIN 20 MG TAB PO SCH (22:18)
[2019-01-22] MEDS: INSULIN LANTUS (GLARGINE) 1 /0.01ml (100units/ml) SC SCH (23:04)
[2019-01-23] MEDS: MORPHINE SULFATE 4 MG/ML SYR/VIAL IV PRN ×2 (04:58→19:53)
[2019-01-23] MEDS: ONDANSETRON HCL 4 MG/2 ML VIAL IV PRN ×2 (04:58→19:53)
[2019-01-23 05:00] VITALS: BP 109/74
[2019-01-23] MEDS: InsuLIN REG 1unit/0.01ml Soln (100units/ml) SC SCH ×4 (05:38→23:58)
[2019-01-23] MEDS: ACCU-CHEK COMFORT CURVE STRIP VI SCH ×4 (05:38→23:58)
[2019-01-23 05:40] LABS: Urine Bacteria FEW /hpf (None Seen); Urine Blood Negative /uL (Negative); Urine Mucus FEW (None Seen); Urine Specific Gravity 1.021 (1.001-1.035); Urine WBC 5 /hpf (0 - 5)
[2019-01-23 05:48] LABS: Potassium 3.8 mmol/L (3.5-5.1)
[2019-01-23 05:51] LABS: BUN/Creatinine Ratio 17.6; Calcium 8.3 mg/dL (8.5-10.1)
--- NOTE | 2019-01-23 07:30 | NUR ---
Opening Shift Note Assumed care of patient, awake and alert. No S/S of distress/SOB or pain. Instructed on POC and to call for assist PRN, will continue to monitor for changes Q1hr and PRN.
[2019-01-23] MEDS: HYDROcodone-ACET 5/325MG TAB PO PRN ×2 (08:37→21:43)
[2019-01-23 09:08] VITALS: BP 117/71
[2019-01-23] MEDS: GABAPENTIN 300 MG CAP PO SCH ×2 (09:54→21:43)
[2019-01-23] MEDS: carBAMazepine 200 MG TAB PO SCH ×2 (09:54→21:43)
[2019-01-23] MEDS: INSULIN LANTUS (GLARGINE) 1 /0.01ml (100units/ml) SC SCH ×2 (09:55→21:44)
[2019-01-23] MEDS: ENOXAPARIN SOD 40 MG/0.4 ML SYRINGE SC SCH (09:55)
--- NOTE | 2019-01-23 11:36 | NUR ---
adonay euceda rounded on patient pt alert orientated requested medication to have bowel movement, per pt she feels much better and wants to go home not a snf, md euceda confirmed with pt to possible stay till friday when md cisse is back on service, pt verbalized understanding
--- NOTE | 2019-01-23 11:46 | NUR ---
pt up walking with walker with physical therapy
[2019-01-23 13:00] VITALS: BP 120/80
[2019-01-23 17:05] VITALS: BP 118/77
--- NOTE | 2019-01-23 20:18 | NUR ---
HOSPITALIST PAGED The patient states that she feels constipated and requested medication to help her have a bowel moment. The hospitalist has been notified and new orders have been received.
[2019-01-23] MEDS: SENNA 8.6 MG TAB PO SCH (21:43)
[2019-01-23] MEDS: DOCUSATE SOD 100 MG CAP PO SCH (21:43)
[2019-01-23] MEDS: ATORVASTATIN 20 MG TAB PO SCH (21:43)
[2019-01-23 22:00] VITALS: BP 114/76
[2019-01-24 05:43] VITALS: BP 119/76
[2019-01-24] MEDS: ACCU-CHEK COMFORT CURVE STRIP VI SCH ×4 (05:57→23:50)
[2019-01-24] MEDS: InsuLIN REG 1unit/0.01ml Soln (100units/ml) SC SCH ×4 (05:57→23:50)
[2019-01-24] MEDS: ONDANSETRON HCL 4 MG/2 ML VIAL IV PRN (06:21)
[2019-01-24] MEDS: MORPHINE SULFATE 4 MG/ML SYR/VIAL IV PRN ×3 (06:21→22:20)
[2019-01-24 09:00] VITALS: BP 113/79
[2019-01-24] MEDS: GABAPENTIN 300 MG CAP PO SCH ×2 (10:04→22:00)
[2019-01-24] MEDS: DOCUSATE SOD 100 MG CAP PO SCH ×2 (10:04→22:00)
[2019-01-24] MEDS: HYDROcodone-ACET 5/325MG TAB PO PRN ×2 (10:04→20:00)
[2019-01-24] MEDS: ENOXAPARIN SOD 40 MG/0.4 ML SYRINGE SC SCH (10:04)
[2019-01-24] MEDS: carBAMazepine 200 MG TAB PO SCH ×2 (10:04→22:44)
[2019-01-24] MEDS: INSULIN LANTUS (GLARGINE) 1 /0.01ml (100units/ml) SC SCH ×2 (10:05→22:45)
--- NOTE | 2019-01-24 10:12 | NUR ---
md euceda rounded on patient revieved plan of care that pt wants to go home not a snf as per md tanna colón
--- NOTE | 2019-01-24 11:49 | NUR ---
confirmed with pt and made md euceda made aware that pt wants to go home she DOES NOT want to go to a SNF
[2019-01-24 13:00] VITALS: BP 109/73
[2019-01-24 16:00] VITALS: BP 118/73
--- NOTE | 2019-01-24 19:15 | NUR ---
Opening Shift Note Assumed care of patient, awake and alert. No S/S of distress/SOB. Instructed on POC and to call for assist PRN, will continue to monitor for changes Q1hr and PRN.
--- NOTE | 2019-01-24 19:45 | NUR ---
Patient is ambulating in the hallway with walker. Patient is tolerating ambulation well.
[2019-01-24] MEDS: ATORVASTATIN 20 MG TAB PO SCH (20:00)
[2019-01-24 21:45] VITALS: BP 121/74
[2019-01-24] MEDS: SENNA 8.6 MG TAB PO SCH (22:00)
[2019-01-25 05:36] VITALS: BP 117/84
[2019-01-25] MEDS: ACCU-CHEK COMFORT CURVE STRIP VI SCH ×2 (06:18→11:37)
[2019-01-25] MEDS: InsuLIN REG 1unit/0.01ml Soln (100units/ml) SC SCH ×2 (06:18→11:36)
[2019-01-25] MEDS: MORPHINE SULFATE 4 MG/ML SYR/VIAL IV PRN ×2 (06:19→13:00)
[2019-01-25 08:39] VITALS: BP 107/71
[2019-01-25] MEDS: DOCUSATE SOD 100 MG CAP PO SCH (09:44)
[2019-01-25] MEDS: GABAPENTIN 300 MG CAP PO SCH (09:44)
[2019-01-25] MEDS: carBAMazepine 200 MG TAB PO SCH (09:44)
[2019-01-25] MEDS: ENOXAPARIN SOD 40 MG/0.4 ML SYRINGE SC SCH (09:44)
[2019-01-25] MEDS: HYDROcodone-ACET 5/325MG TAB PO PRN (09:45)
[2019-01-25] MEDS: INSULIN LANTUS (GLARGINE) 1 /0.01ml (100units/ml) SC SCH (09:46)
--- NOTE | 2019-01-25 12:58 | NUR ---
NUTRITION ASSESSMENT NOTES Please refer to link notes of nutrition screen form filed under the intervention section of the plan of care for further details. Est. Needs: 2050 kcal to 2450 kcal (25-30 kcal/kgBW), 66 gms to 82 gms pro (0.8-1.0 gms/kgBW). Will continue to monitor pertinent labs and reassess nutrient need prn Thank you. Addendum: 01/25/19 at [address] Amended: Links added.
[2019-01-25 13:00] VITALS: BP 128/82
--- NOTE | 2019-01-25 13:45 | NUR ---
notified md cisse of pt want to go home rather than snf placement
--- NOTE | 2019-01-25 13:46 | NUR ---
pt ambulating in the halls with walker independent
[2019-01-25] MEDS ORDERED: METF-372 PO (14:11)
[2019-01-25] MEDS ORDERED: INSLANTI SC (14:12)
[2019-01-25 14:15] VITALS: BP 128/82
--- NOTE | 2019-01-25 14:50 | NUR ---
Regular Discharge Follow up with the following: Provider's Name:Dr Espinoza ext [phone] Address:[address] [place], [place] [id number] Appointment Date:02/04/2019 @4:00pm IF YOUR HEALTH CONDITION DOES NOT CONTINUE TO IMPROVE OR WORSENS, CONTACT YOUR PRIMARY CARE PROVIDER/DOCTOR, OR GO IMMEDIATELY TO THE NEAREST EMERGENCY DEPARTMENT FOR EVALUATION pt ambulated to wheelchair taken to lobby accompanied by daughter
--- NOTE | 2019-01-25 14:51 | NUR ---
peripheral lfa iv removed
--- NOTE | 2019-01-25 16:48 | NUR ---
assessment Patient is a 53 year old female who is alert and oriented. Patients cognitive abilities are intact. Prior to admission patient lived home with her 2 son's and functioned with assistance. Per patient she will return home to her prior living arrangements post discharge and family will transport her home. Patient informed me she has an [facility] caregiver 5 days per week. Patient informed me she has a fww and cane for home use. Patients PCP is Dr Marcos. Patient informed me she feels safe returning home on discharge. I informed patient she has a ss consult to speak with social service and wants details on SNF. Patient informed me she is feeling better and ambulating well and does not need SNF at this time. Patient has no post discharge needs identified. I informed patient she has a right to speak to a social worker aide regarding all care. I informed patient she has a right to participate in any and all discharge planning. Patient does not have a POA and advanced directive. I have offered patient information on POA and advanced directives. I informed the patient the advantages and benefits of having an Advanced Directive. Patient verbalized understanding and agreed to discharge plan. Addendum: 01/25/19 at 1652 by Yohana JOE Amended: Links added.
== END 2019-01-25 14:49 | disposition home or self-care (01) | DRG 640 ==
LOC: ER 16:42 → EDBD 16:42 → OVERFLOW 16:43 → WEST WING 23:10
PROVIDERS: ADMIT Nurse Practitioner; ATTEND Internal Medicine Nephrology
DX: R62.7 Adult failure to thrive (principal); E11.10 Type 2 diabetes mellitus with ketoacidosis without coma; C18.9 Malignant neoplasm of colon, unspecified; I10 Essential (primary) hypertension; Z92.21 Personal history of antineoplastic chemotherapy; E78.5 Hyperlipidemia, unspecified; F12.90 Cannabis use, unspecified, uncomplicated; F17.210 Nicotine dependence, cigarettes, uncomplicated; J45.909 Unspecified asthma, uncomplicated; Z80.9 Family history of malignant neoplasm, unspecified; Z85.038 Personal history of other malignant neoplasm of large intestine; Z86.73 Personal history of transient ischemic attack (TIA), and cerebral infarction without residual deficits; Z90.710 Acquired absence of both cervix and uterus; Z90.49 Acquired absence of other specified parts of digestive tract
CPT/HCPCS: 36415; 71045; 80048; 80053; 81001; 82010; 82962; 83036; 83735; 83880; 85025; 87081; 93005; 94761; 96361; 96372; 96374; 96375; 97110; 97116; 97530; G0378; J1815; J2405

== ENCOUNTER → 2019-03-22 | Outpatient (CLI) | payer MEDICARE, MEDICAID ==
[~2019-03-22] MED LIST changes: -CHOL20007 OR; +INSLANTI SC; +METF-372 PO
[2019-03-22 10:08] LABS: Basophils # (auto) 0 uL; Basophils % (auto) 0.8 % (0.0-2.0); Eosinophils # (auto) 0.2 uL; Eosinophils % (auto) 3.5 % (0.0-7.0); Hematocrit 40.9 % (36.0-46.0); Hemoglobin 13.8 g/dL (12.2-16.2); Lymphocytes # (auto) 2.4 uL; Lymphocytes % (auto) 42.7 % (10.0-50.0); Mean Corpuscular Hgb Conc. 33.8 g/dL (32.0-36.0); Mean Corpuscular Volume 94.7 fL (80.0-100.0); Monocytes # (auto) 0.4 uL; Monocytes % (auto) 6.6 % (0.0-12.0); Neutrophils # (auto) 2.6 uL; Neutrophils % (auto) 46.4 % (37.0-80.0); Nucleated Red Blood Cells % 0.1 %; Platelet Count (auto) 215 10^3/uL (140-450); Red Blood Cells 4.32 10^6/uL (4.0-5.20); White Blood Cell 5.7 10^3/uL (4.4-10.8)
[2019-03-22 10:49] LABS: Albumin 3.5 g/dL (3.4-5.0); Calcium 9.4 mg/dL (8.5-10.1); Potassium 3.9 mmol/L (3.5-5.1)
[2019-03-22 10:52] LABS: BUN/Creatinine Ratio 24.7; Bilirubin, Total 0.3 mg/dL (0.2-1.0); Total Protein 7.3 g/dL (6.4-8.2)
== END | disposition home or self-care (01) ==
LOC: LAB 08:57
PROVIDERS: ATTEND Internal Medicine
DX: C18.2 Malignant neoplasm of ascending colon (principal)
CPT/HCPCS: 36415; 80053; 85025

== ENCOUNTER → 2019-04-23 | Outpatient (CLI) | payer MEDICARE ==
[2019-04-23 10:01] LABS: Basophils # (auto) 0.1 uL; Basophils % (auto) 1.3 % (0.0-2.0); Eosinophils # (auto) 0.2 uL; Eosinophils % (auto) 2.9 % (0.0-7.0); Hemoglobin 15.4 g/dL (12.2-16.2); Lymphocytes # (auto) 2.1 uL; Lymphocytes % (auto) 35.4 % (10.0-50.0); Mean Corpuscular Hemoglobin 32.4 pg (28.0-32.0); Mean Corpuscular Hgb Conc. 34.1 g/dL (32.0-36.0); Mean Corpuscular Volume 95.1 fL (80.0-100.0); Monocytes # (auto) 0.4 uL; Neutrophils # (auto) 3.1 uL; Neutrophils % (auto) 53.4 % (37.0-80.0); Nucleated Red Blood Cells % 0.2 %; Platelet Count (auto) 219 10^3/uL (140-450); Red Blood Cells 4.73 10^6/uL (4.0-5.20); Red Cell Distribution Width 13.8 % (11.8-14.3); White Blood Cell 5.8 10^3/uL (4.4-10.8)
[2019-04-23 10:56] LABS: Potassium 4.1 mmol/L (3.5-5.1)
[2019-04-23 11:39] LABS: Albumin 3.6 g/dL (3.4-5.0); BUN/Creatinine Ratio 10.9; Bilirubin, Total 0.3 mg/dL (0.2-1.0); Calcium 9.3 mg/dL (8.5-10.1); Total Protein 7.4 g/dL (6.4-8.2)
== END | disposition home or self-care (01) ==
LOC: LAB 09:18
PROVIDERS: ATTEND Internal Medicine Hematology & Oncology
DX: C18.2 Malignant neoplasm of ascending colon (principal)
CPT/HCPCS: 36415; 80053; 82378; 83615; 85025

== ENCOUNTER → 2019-07-29 | Outpatient (CLI) | payer MEDICARE, MEDICAID ==
[2019-07-29 09:45] LABS: Basophils # (auto) 0.1 10 ^3/uL (0-0.2); Basophils % (auto) 0.9 % (0.0-2.0); Eosinophils # (auto) 0.1 10 ^3/uL (0-0.8); Eosinophils % (auto) 0.8 % (0.0-7.0); Hematocrit 41.5 % (36.0-46.0); Hemoglobin 13.8 g/dL (12.2-16.2); Lymphocytes # (auto) 1.7 10 ^3/uL (0.4-5.4); Lymphocytes % (auto) 21.9 % (10.0-50.0); Mean Corpuscular Hemoglobin 31.6 pg (28.0-32.0); Mean Corpuscular Hgb Conc. 33.2 g/dL (32.0-36.0); Mean Corpuscular Volume 95.3 fL (80.0-100.0); Monocytes # (auto) 0.3 10 ^3/uL (0-1.3); Monocytes % (auto) 3.9 % (0.0-12.0); Neutrophils # (auto) 5.6 10 ^3/uL (1.6-8.6); Neutrophils % (auto) 72.5 % (37.0-80.0); Platelet Count (auto) 256 10^3/uL (140-450); Red Blood Cells 4.35 10^6/uL (4.0-5.20); Red Cell Distribution Width 13.2 % (11.8-14.3); White Blood Cell 7.7 10^3/uL (4.4-10.8)
[2019-07-29 10:17] LABS: Albumin 3.9 g/dL (3.4-5.0); Potassium 3.8 mmol/L (3.5-5.1)
[2019-07-29 10:20] LABS: BUN/Creatinine Ratio 17.2; Bilirubin, Total 0.4 mg/dL (0.2-1.0); Total Protein 7.5 g/dL (6.4-8.2)
== END | disposition home or self-care (01) ==
LOC: LAB 09:27
PROVIDERS: ATTEND Internal Medicine
DX: C18.2 Malignant neoplasm of ascending colon (principal)
CPT/HCPCS: 36415; 80053; 82378; 85025

== ENCOUNTER → 2019-10-06 | Outpatient (CLI) | payer MEDICARE ==
[2019-10-06 08:57] LABS: Basophils # (auto) 0.1 10 ^3/uL (0-0.2); Eosinophils # (auto) 0.1 10 ^3/uL (0-0.8); Eosinophils % (auto) 2.2 % (0.0-7.0); Hematocrit 41.2 % (36.0-46.0); Hemoglobin 13.7 g/dL (12.2-16.2); Lymphocytes # (auto) 1.5 10 ^3/uL (0.4-5.4); Lymphocytes % (auto) 29.4 % (10.0-50.0); Mean Corpuscular Hemoglobin 31.6 pg (28.0-32.0); Mean Corpuscular Hgb Conc. 33.4 g/dL (32.0-36.0); Mean Corpuscular Volume 94.8 fL (80.0-100.0); Monocytes # (auto) 0.3 10 ^3/uL (0-1.3); Monocytes % (auto) 5.1 % (0.0-12.0); Neutrophils # (auto) 3.2 10 ^3/uL (1.6-8.6); Neutrophils % (auto) 62.3 % (37.0-80.0); Platelet Count (auto) 211 10^3/uL (140-450); Red Blood Cells 4.35 10^6/uL (4.0-5.20); Red Cell Distribution Width 13.8 % (11.8-14.3); White Blood Cell 5.2 10^3/uL (4.4-10.8)
[2019-10-06 09:29] LABS: Albumin 3.6 g/dL (3.4-5.0); Calcium 9.1 mg/dL (8.5-10.1); Potassium 3.1 mmol/L (3.5-5.1)
[2019-10-06 09:33] LABS: Bilirubin, Total 0.5 mg/dL (0.2-1.0); Total Protein 7.2 g/dL (6.4-8.2)
== END | disposition home or self-care (01) ==
LOC: LAB 08:37
PROVIDERS: ATTEND Internal Medicine
DX: C18.9 Malignant neoplasm of colon, unspecified (principal); E78.5 Hyperlipidemia, unspecified
CPT/HCPCS: 36415; 80053; 83615; 84436; 84443; 85025

== ENCOUNTER → 2019-10-29 | Outpatient (CLI) | payer MEDICARE ==
[2019-10-29 13:13] LABS: Basophils # (auto) 0.1 10 ^3/uL (0-0.2); Basophils % (auto) 2.4 % (0.0-2.0); Eosinophils # (auto) 0.1 10 ^3/uL (0-0.8); Eosinophils % (auto) 2.6 % (0.0-7.0); Hematocrit 45.5 % (36.0-46.0); Hemoglobin 14.9 g/dL (12.2-16.2); Lymphocytes # (auto) 2.2 10 ^3/uL (0.4-5.4); Lymphocytes % (auto) 38.4 % (10.0-50.0); Mean Corpuscular Hemoglobin 31.6 pg (28.0-32.0); Mean Corpuscular Hgb Conc. 32.8 g/dL (32.0-36.0); Mean Corpuscular Volume 96.2 fL (80.0-100.0); Monocytes # (auto) 0.4 10 ^3/uL (0-1.3); Neutrophils # (auto) 2.8 10 ^3/uL (1.6-8.6); Neutrophils % (auto) 49.6 % (37.0-80.0); Nucleated Red Blood Cells % 0.1 %; Platelet Count (auto) 230 10^3/uL (140-450); Red Blood Cells 4.73 10^6/uL (4.0-5.20); Red Cell Distribution Width 13.7 % (11.8-14.3); White Blood Cell 5.7 10^3/uL (4.4-10.8)
[2019-10-29 13:33] LABS: Calcium 9.4 mg/dL (8.5-10.1); Potassium 3.9 mmol/L (3.5-5.1)
[2019-10-29 13:37] LABS: BUN/Creatinine Ratio 14.1; Bilirubin, Total 0.5 mg/dL (0.2-1.0); Total Protein 7.9 g/dL (6.4-8.2)
== END | disposition home or self-care (01) ==
LOC: LAB 12:13
PROVIDERS: ATTEND Internal Medicine
DX: C18.9 Malignant neoplasm of colon, unspecified (principal); Z88.8 Allergy status to other drugs, medicaments and biological substances; Z79.899 Other long term (current) drug therapy
CPT/HCPCS: 36415; 80053; 83615; 84436; 84443; 85025

== ENCOUNTER → 2019-11-12 | Outpatient (CLI) | payer MEDICARE ==
[2019-11-12 09:27] LABS: Basophils # (auto) 0.1 10 ^3/uL (0-0.2); Basophils % (auto) 0.8 % (0.0-2.0); Eosinophils # (auto) 0.1 10 ^3/uL (0-0.8); Eosinophils % (auto) 1.5 % (0.0-7.0); Hematocrit 43.2 % (36.0-46.0); Hemoglobin 14.6 g/dL (12.2-16.2); Lymphocytes # (auto) 1.8 10 ^3/uL (0.4-5.4); Lymphocytes % (auto) 29.2 % (10.0-50.0); Mean Corpuscular Hemoglobin 32.2 pg (28.0-32.0); Mean Corpuscular Hgb Conc. 33.9 g/dL (32.0-36.0); Mean Corpuscular Volume 95.2 fL (80.0-100.0); Monocytes # (auto) 0.4 10 ^3/uL (0-1.3); Monocytes % (auto) 7.2 % (0.0-12.0); Neutrophils # (auto) 3.8 10 ^3/uL (1.6-8.6); Neutrophils % (auto) 61.3 % (37.0-80.0); Platelet Count (auto) 196 10^3/uL (140-450); Red Blood Cells 4.54 10^6/uL (4.0-5.20); Red Cell Distribution Width 13.8 % (11.8-14.3); White Blood Cell 6.2 10^3/uL (4.4-10.8)
[2019-11-12 09:56] LABS: Albumin 3.7 g/dL (3.4-5.0); Calcium 9.2 mg/dL (8.5-10.1); Potassium 3.2 mmol/L (3.5-5.1)
[2019-11-12 10:01] LABS: BUN/Creatinine Ratio 11.3; Bilirubin, Total 0.4 mg/dL (0.2-1.0); Total Protein 7.3 g/dL (6.4-8.2)
== END | disposition home or self-care (01) ==
LOC: LAB 08:54
PROVIDERS: ATTEND Internal Medicine
DX: C18.9 Malignant neoplasm of colon, unspecified (principal); E78.5 Hyperlipidemia, unspecified
CPT/HCPCS: 36415; 80053; 83615; 84436; 84443; 85025

== ENCOUNTER → 2019-12-08 | Outpatient (CLI) | payer MEDICARE, MEDICAID ==
[2019-12-08 10:54] LABS: Basophils # (auto) 0 10 ^3/uL (0-0.2); Basophils % (auto) 0.9 % (0.0-2.0); Eosinophils # (auto) 0.1 10 ^3/uL (0-0.8); Eosinophils % (auto) 1.1 % (0.0-7.0); Hematocrit 44.2 % (36.0-46.0); Hemoglobin 15.1 g/dL (12.2-16.2); Lymphocytes # (auto) 1.4 10 ^3/uL (0.4-5.4); Lymphocytes % (auto) 25.8 % (10.0-50.0); Mean Corpuscular Hemoglobin 32.6 pg (28.0-32.0); Mean Corpuscular Hgb Conc. 34.1 g/dL (32.0-36.0); Mean Corpuscular Volume 95.6 fL (80.0-100.0); Monocytes # (auto) 0.4 10 ^3/uL (0-1.3); Monocytes % (auto) 6.5 % (0.0-12.0); Neutrophils # (auto) 3.6 10 ^3/uL (1.6-8.6); Neutrophils % (auto) 65.7 % (37.0-80.0); Platelet Count (auto) 241 10^3/uL (140-450); Red Blood Cells 4.63 10^6/uL (4.0-5.20); White Blood Cell 5.5 10^3/uL (4.4-10.8)
[2019-12-08 11:54] LABS: Albumin 3.9 g/dL (3.4-5.0); Calcium 9.2 mg/dL (8.5-10.1); Potassium 3.9 mmol/L (3.5-5.1)
[2019-12-08 11:58] LABS: BUN/Creatinine Ratio 18.9; Bilirubin, Total 0.4 mg/dL (0.2-1.0); Total Protein 7.6 g/dL (6.4-8.2)
== END | disposition home or self-care (01) ==
LOC: LAB 10:36
PROVIDERS: ATTEND Internal Medicine
DX: C18.9 Malignant neoplasm of colon, unspecified (principal); E78.5 Hyperlipidemia, unspecified
CPT/HCPCS: 36415; 80053; 83615; 84436; 84443; 85025

== ENCOUNTER → 2020-01-07 | Outpatient (CLI) | payer MEDICARE, MEDICAID ==
[2020-01-07 14:57] LABS: Basophils # (auto) 0.1 10 ^3/uL (0-0.2); Basophils % (auto) 1.3 % (0.0-2.0); Eosinophils # (auto) 0.1 10 ^3/uL (0-0.8); Eosinophils % (auto) 2.1 % (0.0-7.0); Hematocrit 44.3 % (36.0-46.0); Hemoglobin 14.6 g/dL (12.2-16.2); Lymphocytes # (auto) 1.9 10 ^3/uL (0.4-5.4); Lymphocytes % (auto) 31.1 % (10.0-50.0); Mean Corpuscular Hemoglobin 31.9 pg (28.0-32.0); Mean Corpuscular Volume 96.7 fL (80.0-100.0); Monocytes # (auto) 0.4 10 ^3/uL (0-1.3); Monocytes % (auto) 6.7 % (0.0-12.0); Neutrophils # (auto) 3.5 10 ^3/uL (1.6-8.6); Neutrophils % (auto) 58.8 % (37.0-80.0); Nucleated Red Blood Cells % 0.1 %; Platelet Count (auto) 252 10^3/uL (140-450); Red Blood Cells 4.58 10^6/uL (4.0-5.20); Red Cell Distribution Width 13.6 % (11.8-14.3)
[2020-01-07 15:29] LABS: Albumin 3.6 g/dL (3.4-5.0); Calcium 9.2 mg/dL (8.5-10.1); Potassium 3.6 mmol/L (3.5-5.1)
[2020-01-07 15:31] LABS: BUN/Creatinine Ratio 11.1; Bilirubin, Total 0.4 mg/dL (0.2-1.0); Total Protein 7.1 g/dL (6.4-8.2)
== END | disposition home or self-care (01) ==
LOC: LAB 14:36
PROVIDERS: ATTEND Internal Medicine
DX: C18.9 Malignant neoplasm of colon, unspecified (principal); E78.5 Hyperlipidemia, unspecified
CPT/HCPCS: 36415; 80053; 83615; 84436; 84443; 85025

== ENCOUNTER → 2020-02-15 | Outpatient (CLI) | payer MEDICARE, MEDICAID ==
[2020-02-15 14:00] LABS: Urine Bacteria NONE SEEN /hpf (None Seen); Urine Blood Negative /uL (Negative); Urine Specific Gravity 1.041 (1.001-1.035); Urine WBC 2 /hpf (0 - 5)
[2020-02-15 14:38] LABS: Albumin 3.9 g/dL (3.4-5.0); Calcium 9.8 mg/dL (8.5-10.1); Potassium 3.5 mmol/L (3.5-5.1)
[2020-02-15 14:43] LABS: BUN/Creatinine Ratio 14.9; Bilirubin, Total 0.5 mg/dL (0.2-1.0); Total Protein 7.7 g/dL (6.4-8.2)
== END | disposition home or self-care (01) ==
LOC: LAB 12:42
PROVIDERS: ATTEND Internal Medicine
DX: E11.42 Type 2 diabetes mellitus with diabetic polyneuropathy (principal)
CPT/HCPCS: 36415; 80053; 80061; 81001; 82043; 82607; 83036; 84443

== ENCOUNTER → 2020-04-13 | Outpatient (CLI) | payer MEDICARE, MEDICAID ==
[2020-04-13 13:05] LABS: Basophils # (auto) 0.1 10 ^3/uL (0-0.2); Eosinophils # (auto) 0.1 10 ^3/uL (0-0.8); Eosinophils % (auto) 2.2 % (0.0-7.0); Hemoglobin 15.3 g/dL (12.2-16.2); Lymphocytes # (auto) 1.6 10 ^3/uL (0.4-5.4); Lymphocytes % (auto) 25.4 % (10.0-50.0); Mean Corpuscular Hgb Conc. 33.3 g/dL (32.0-36.0); Mean Corpuscular Volume 96.2 fL (80.0-100.0); Monocytes # (auto) 0.3 10 ^3/uL (0-1.3); Monocytes % (auto) 4.4 % (0.0-12.0); Neutrophils # (auto) 4.1 10 ^3/uL (1.6-8.6); Nucleated Red Blood Cells % 0.1 %; Platelet Count (auto) 237 10^3/uL (140-450); Red Blood Cells 4.78 10^6/uL (4.0-5.20); White Blood Cell 6.1 10^3/uL (4.4-10.8)
[2020-04-13 13:40] LABS: Albumin 3.7 g/dL (3.4-5.0); Calcium 8.8 mg/dL (8.5-10.1); Potassium 3.8 mmol/L (3.5-5.1)
[2020-04-13 13:43] LABS: BUN/Creatinine Ratio 13.3; Bilirubin, Total 0.4 mg/dL (0.2-1.0); Total Protein 7.3 g/dL (6.4-8.2)
== END | disposition home or self-care (01) ==
LOC: LAB 12:45
PROVIDERS: ATTEND Internal Medicine
DX: C18.9 Malignant neoplasm of colon, unspecified (principal); Z88.8 Allergy status to other drugs, medicaments and biological substances
CPT/HCPCS: 36415; 80053; 82378; 83615; 85025

== ENCOUNTER 2020-04-21 12:03 | Inpatient (IN) | payer MEDICARE, MEDICAID ==
[~2020-04-21] VITALS: Ht 152.4 cm; Wt 83.5 kg
[2020-04-21] MEDS ORDERED: SODIUM CHLORIDE 0.9% 500 ML IV ONE (12:15)
[2020-04-21] MEDS ORDERED: HYDROmorphone HCL 2 MG/ML VL IV ONE ×2 (12:15→14:00)
[2020-04-21] MEDS ORDERED: ONDANSETRON HCL 4 MG/2 ML VIAL IV ONE (12:15)
[2020-04-21 12:25] LABS: Basophils # (auto) 0 10 ^3/uL (0-0.2); Basophils % (auto) 0.7 % (0.0-2.0); Eosinophils # (auto) 0 10 ^3/uL (0-0.8); Hematocrit 43.1 % (36.0-46.0); Hemoglobin 15.1 g/dL (12.2-16.2); Lymphocytes # (auto) 1.3 10 ^3/uL (0.4-5.4); Lymphocytes % (auto) 27.8 % (10.0-50.0); Mean Corpuscular Hemoglobin 32.9 pg (28.0-32.0); Mean Corpuscular Volume 94.1 fL (80.0-100.0); Monocytes # (auto) 0.1 10 ^3/uL (0-1.3); Monocytes % (auto) 1.3 % (0.0-12.0); Neutrophils # (auto) 3.1 10 ^3/uL (1.6-8.6); Neutrophils % (auto) 69.2 % (37.0-80.0); Platelet Count (auto) 207 10^3/uL (140-450); Red Blood Cells 4.58 10^6/uL (4.0-5.20); Red Cell Distribution Width 13.6 % (11.8-14.3); White Blood Cell 4.5 10^3/uL (4.4-10.8)
[2020-04-21 13:08] LABS: Calcium 8.7 mg/dL (8.5-10.1); Potassium 3.6 mmol/L (3.5-5.1)
[2020-04-21] MEDS ORDERED: LORazepam 0.5 MG TAB PO PRN (13:30)
[2020-04-21] MEDS ORDERED: MORPHINE SULF INJ 2 MG/ML SYRINGE 1ML IV PRN (13:30)
[2020-04-21] MEDS ORDERED: LACTATED RINGER'S 1,000 ML IV ONE (13:30)
[2020-04-21] MEDS ORDERED: cefTRIAXone 1GM/50ML D5W 50 ML IV ONE (13:30)
[2020-04-21] MEDS ORDERED: DOCUSATE SOD 100 MG CAP PO PRN (13:30)
[2020-04-21] MEDS ORDERED: DEXTROSE (50%) 50ML SYRG IV PRN (13:30)
[2020-04-21] MEDS ORDERED: ALUM & MAG HYDROX-SIMETH LIQ(MAALOX) 30 ML PO PRN (13:30)
[2020-04-21] MEDS ORDERED: NITROGLYCERIN 0.4 MG SL TAB SL PRN (13:30)
[2020-04-21 13:33] LABS: Albumin 3.3 g/dL (3.4-5.0); BUN/Creatinine Ratio 16.7; Bilirubin, Total 1.3 mg/dL (0.2-1.0); Magnesium 1.8 mg/dL (1.6-2.6); Total Protein 6.9 g/dL (6.4-8.2)
[2020-04-21] MEDS ORDERED: hydrALAZINE HCL 20 MG/ML VL IV PRN (13:45)
[2020-04-21 14:32] LABS: Urine Bacteria FEW /hpf (None Seen); Urine Blood Negative /uL (Negative); Urine Specific Gravity 1.029 (1.001-1.035); Urine WBC 1 /hpf (0 - 5)
[2020-04-21 14:40] LABS: Alcohol, Urine < 3.0 mg/dL (0-10); Amphetamine Screen, Urine NEGATIVE (NEGATIVE); Barbiturate Scree,Urine NEGATIVE (NEGATIVE); Benzodiazephine Screen, Urine NEGATIVE (NEGATIVE); Cannabinoid Screen, Urine NEGATIVE (NEGATIVE); Cocaine Screen, Urine NEGATIVE (NEGATIVE); Opiate Scree,Urine NEGATIVE (NEGATIVE); Phencyclidine Screen, Urine NEGATIVE (NEGATIVE)
[2020-04-21 15:02] LABS: Cholesterol 159 mg/dL (< 200)
[2020-04-21 15:06] LABS: HDL Cholesterol 46 mg/dL (40-59); LDL Cholesterol 103 mg/dL (< 100); Triglycerides 90 mg/dL (< 150)
[2020-04-21] MEDS ORDERED: OXYC-902 PO (15:09)
[2020-04-21] MEDS ORDERED: INSU1INJ19 SC (15:09)
[2020-04-21] MEDS ORDERED: MORP30TA5 PO (15:12)
[2020-04-21] MEDS ORDERED: ASPI-498 PO (15:19)
[2020-04-21] MEDS ORDERED: FENO145T27 PO (15:22)
[2020-04-21] MEDS ORDERED: INSU100I47 SC (15:22)
[2020-04-21] MEDS ORDERED: METO25TA93 PO (15:22)
[2020-04-21] MEDS ORDERED: ATOR40TA52 PO (15:22)
[2020-04-21] MEDS ORDERED: EMPA1TAB PO (15:22)
[2020-04-21] MEDS: MORPHINE SULF INJ 2 MG/ML SYRINGE 1ML IV PRN ×2 (16:56→22:05)
[2020-04-21] MEDS: SODIUM CHLORIDE 0.9% 1,000 ML IV SCH (16:56)
[2020-04-21] MEDS: ONDANSETRON HCL 4 MG/2 ML VIAL IV PRN (16:57)
[2020-04-21 17:00] VITALS: BP 127/81
[2020-04-21] MEDS: ACCU-CHEK COMFORT CURVE STRIP VI SCH ×2 (17:22→22:04)
[2020-04-21] MEDS: InsuLIN REG 1unit/0.01ml Soln (100units/ml) SC SCH ×2 (17:23→22:04)
[2020-04-21] MEDS: HYDROcodone-ACET 5/325MG TAB PO PRN (18:19)
[2020-04-21] MEDS ORDERED: LORazepam 2MG/ML-1ML VIAL IV PRN (22:45)
[2020-04-22] MEDS: ONDANSETRON HCL 4 MG/2 ML VIAL IV PRN ×2 (00:59→08:18)
[2020-04-22] MEDS: MORPHINE SULF INJ 2 MG/ML SYRINGE 1ML IV PRN (01:03)
[2020-04-22] MEDS: HYDROmorphone HCL 2 MG/ML VL IV PRN ×4 (01:21→17:46)
[2020-04-22] MEDS ORDERED: PANTOPRAZOLE 40 MG/10 ML VIAL INJ IV ONE (04:15)
[2020-04-22] MEDS ORDERED: METOPROLOL SUCCINATE XL 50 MG TAB PO ONE (04:30)
[2020-04-22 05:40] LABS: Basophils # (auto) 0 10 ^3/uL (0-0.2); Eosinophils # (auto) 0.1 10 ^3/uL (0-0.8); Eosinophils % (auto) 1.8 % (0.0-7.0); Hematocrit 39.8 % (36.0-46.0); Hemoglobin 13.7 g/dL (12.2-16.2); Lymphocytes # (auto) 1.8 10 ^3/uL (0.4-5.4); Lymphocytes % (auto) 41.1 % (10.0-50.0); Mean Corpuscular Hemoglobin 32.6 pg (28.0-32.0); Mean Corpuscular Hgb Conc. 34.3 g/dL (32.0-36.0); Mean Corpuscular Volume 95.1 fL (80.0-100.0); Monocytes # (auto) 0.1 10 ^3/uL (0-1.3); Monocytes % (auto) 1.8 % (0.0-12.0); Neutrophils # (auto) 2.4 10 ^3/uL (1.6-8.6); Neutrophils % (auto) 54.3 % (37.0-80.0); Nucleated Red Blood Cells % 0.2 %; Platelet Count (auto) 203 10^3/uL (140-450); Red Blood Cells 4.19 10^6/uL (4.0-5.20); Red Cell Distribution Width 13.4 % (11.8-14.3); White Blood Cell 4.3 10^3/uL (4.4-10.8)
[2020-04-22 05:55] LABS: Albumin 2.9 g/dL (3.4-5.0); Calcium 7.9 mg/dL (8.5-10.1); Magnesium 1.8 mg/dL (1.6-2.6); Potassium 3.3 mmol/L (3.5-5.1)
[2020-04-22 05:58] LABS: BUN/Creatinine Ratio 22.4; Bilirubin, Total 0.7 mg/dL (0.2-1.0); INR 1.02 (0.9-1.15); Partial Thromboplastin Time 27.3 sec (23.0-31.2); Phosphorus 3.2 mg/dL (2.5-4.90); Total Protein 5.9 g/dL (6.4-8.2)
[2020-04-22] MEDS: SODIUM CHLORIDE 0.9% 1,000 ML IV SCH ×2 (06:10→22:50)
[2020-04-22] MEDS: DexAMETHasone SOD PHOS 4 MG/1ML SDV INJ IV SCH ×3 (06:13→21:13)
[2020-04-22] MEDS: InsuLIN REG 1unit/0.01ml Soln (100units/ml) SC SCH ×4 (06:15→21:40)
[2020-04-22] MEDS: ACCU-CHEK COMFORT CURVE STRIP VI SCH ×4 (06:25→21:13)
[2020-04-22] MEDS: HYDROcodone-ACET 5/325MG TAB PO PRN ×4 (06:30→20:36)
[2020-04-22 08:00] VITALS: BP 136/83
[2020-04-22] MEDS: GABAPENTIN 300 MG CAP PO SCH ×2 (08:19→21:13)
[2020-04-22] MEDS: FERROUS SULFATE 325 MG TAB PO SCH ×3 (08:19→17:53)
[2020-04-22] MEDS: cefTRIAXone 1GM/50ML D5W 50 ML IV SCH (08:19)
[2020-04-22] MEDS: ASPirin-EC 81 mg tab PO SCH (08:19)
[2020-04-22] MEDS: ENOXAPARIN SOD 40 MG/0.4 ML SYRINGE SC SCH (08:19)
[2020-04-22] MEDS ORDERED: POTASSIUM EFFERVESENT TAB 25 MEQ PO ONE (14:00)
[2020-04-22 16:16] VITALS: BP 142/92
[2020-04-22] MEDS: Glucerna Carbsteady SHAKE Vanilla 8oz PO SCH (17:53)
[2020-04-22] MEDS: ATORVASTATIN 20 MG TAB PO SCH (21:13)
[2020-04-22] MEDS: TEMAZEPAM 15 MG CAP PO PRN (21:14)
[2020-04-22] MEDS: INSULIN LANTUS (GLARGINE) 1 /0.01ml (100units/ml) SC SCH (21:40)
[2020-04-22 22:00] VITALS: BP 147/70
[2020-04-23] MEDS: HYDROmorphone HCL 2 MG/ML VL IV PRN ×3 (00:15→16:53)
[2020-04-23 05:00] VITALS: BP 152/95
[2020-04-23] MEDS: ACCU-CHEK COMFORT CURVE STRIP VI SCH ×4 (06:22→22:01)
[2020-04-23] MEDS: DexAMETHasone SOD PHOS 4 MG/1ML SDV INJ IV SCH ×3 (06:24→21:44)
[2020-04-23] MEDS: InsuLIN REG 1unit/0.01ml Soln (100units/ml) SC SCH ×4 (06:31→22:10)
[2020-04-23 07:08] LABS: Basophils # (auto) 0 10 ^3/uL (0-0.2); Basophils % (auto) 0.1 % (0.0-2.0); Eosinophils # (auto) 0 10 ^3/uL (0-0.8); Hemoglobin 13.5 g/dL (12.2-16.2); Lymphocytes # (auto) 1.2 10 ^3/uL (0.4-5.4); Lymphocytes % (auto) 14.2 % (10.0-50.0); Mean Corpuscular Hemoglobin 33.7 pg (28.0-32.0); Mean Corpuscular Hgb Conc. 35.6 g/dL (32.0-36.0); Mean Corpuscular Volume 94.5 fL (80.0-100.0); Monocytes # (auto) 0.1 10 ^3/uL (0-1.3); Monocytes % (auto) 1.1 % (0.0-12.0); Neutrophils % (auto) 84.6 % (37.0-80.0); Platelet Count (auto) 211 10^3/uL (140-450); Red Blood Cells 4.02 10^6/uL (4.0-5.20); Red Cell Distribution Width 13.5 % (11.8-14.3); White Blood Cell 8.3 10^3/uL (4.4-10.8)
[2020-04-23 07:23] LABS: Potassium 3.8 mmol/L (3.5-5.1)
[2020-04-23 07:28] LABS: Albumin 2.9 g/dL (3.4-5.0); BUN/Creatinine Ratio 18.2; Calcium 9.2 mg/dL (8.5-10.1)
[2020-04-23 07:31] LABS: Bilirubin, Total 0.4 mg/dL (0.2-1.0); Total Protein 6.1 g/dL (6.4-8.2)
[2020-04-23 08:00] VITALS: BP 142/86
[2020-04-23] MEDS: FERROUS SULFATE 325 MG TAB PO SCH ×3 (08:00→17:45)
[2020-04-23] MEDS: Glucerna Carbsteady SHAKE Vanilla 8oz PO SCH ×3 (08:28→17:47)
[2020-04-23] MEDS: cefTRIAXone 1GM/50ML D5W 50 ML IV SCH (09:19)
[2020-04-23] MEDS: ASPirin-EC 81 mg tab PO SCH (09:19)
[2020-04-23] MEDS: GABAPENTIN 300 MG CAP PO SCH ×2 (09:19→21:44)
[2020-04-23] MEDS: ENOXAPARIN SOD 40 MG/0.4 ML SYRINGE SC SCH (09:20)
[2020-04-23] MEDS: METOPROLOL SUCCINATE XL 50 MG TAB PO SCH (09:20)
[2020-04-23] MEDS: PANTOPRAZOLE 40 MG/10 ML VIAL INJ IV SCH (09:25)
[2020-04-23] MEDS: SODIUM CHLORIDE 0.9% 1,000 ML IV SCH (15:30)
[2020-04-23 16:00] VITALS: BP 149/85
[2020-04-23] MEDS: PROMETHAZINE W/CODEINE 5 ML ORAL SYRUP PO PRN ×2 (16:14→23:03)
[2020-04-23] MEDS: oxyCODONE HCL 5MG TAB PO PRN (20:52)
[2020-04-23] MEDS: ATORVASTATIN 20 MG TAB PO SCH (21:44)
[2020-04-23] MEDS: MORPHINE SULF 30 mg ER tab PO SCH (21:45)
[2020-04-23 21:58] VITALS: BP 146/84
[2020-04-23] MEDS: INSULIN LANTUS (GLARGINE) 1 /0.01ml (100units/ml) SC SCH (22:10)
[2020-04-23] MEDS: TEMAZEPAM 15 MG CAP PO PRN (23:48)
[2020-04-24 05:00] VITALS: BP 139/92
[2020-04-24] MEDS: DexAMETHasone SOD PHOS 4 MG/1ML SDV INJ IV SCH ×2 (06:03→14:00)
[2020-04-24] MEDS: MORPHINE SULF 30 mg ER tab PO SCH ×2 (06:04→14:00)
[2020-04-24] MEDS: ACCU-CHEK COMFORT CURVE STRIP VI SCH ×2 (06:25→12:26)
[2020-04-24] MEDS: InsuLIN REG 1unit/0.01ml Soln (100units/ml) SC SCH ×2 (06:29→12:27)
[2020-04-24 06:33] LABS: Basophils # (auto) 0.1 10 ^3/uL (0-0.2); Basophils % (auto) 1.2 % (0.0-2.0); Eosinophils # (auto) 0 10 ^3/uL (0-0.8); Eosinophils % (auto) 0.3 % (0.0-7.0); Hematocrit 39.2 % (36.0-46.0); Hemoglobin 13.3 g/dL (12.2-16.2); Lymphocytes # (auto) 1.8 10 ^3/uL (0.4-5.4); Lymphocytes % (auto) 17.8 % (10.0-50.0); Mean Corpuscular Hemoglobin 32.2 pg (28.0-32.0); Mean Corpuscular Hgb Conc. 33.8 g/dL (32.0-36.0); Mean Corpuscular Volume 95.2 fL (80.0-100.0); Monocytes # (auto) 0.2 10 ^3/uL (0-1.3); Monocytes % (auto) 2.1 % (0.0-12.0); Neutrophils # (auto) 7.8 10 ^3/uL (1.6-8.6); Neutrophils % (auto) 78.6 % (37.0-80.0); Nucleated Red Blood Cells % 0.1 %; Platelet Count (auto) 206 10^3/uL (140-450); Red Blood Cells 4.12 10^6/uL (4.0-5.20); Red Cell Distribution Width 13.6 % (11.8-14.3)
[2020-04-24 06:42] LABS: BUN/Creatinine Ratio 25.3; Calcium 8.4 mg/dL (8.5-10.1); Potassium 3.8 mmol/L (3.5-5.1)
[2020-04-24 08:00] VITALS: BP_SYST 100; BP_SYST 133; BP_DIAS 59; BP_DIAS 76
[2020-04-24] MEDS: SODIUM CHLORIDE 0.9% 1,000 ML IV SCH (08:10)
[2020-04-24] MEDS: Glucerna Carbsteady SHAKE Vanilla 8oz PO SCH ×2 (09:30→12:26)
[2020-04-24] MEDS: FERROUS SULFATE 325 MG TAB PO SCH ×2 (09:30→12:29)
[2020-04-24] MEDS: cefTRIAXone 1GM/50ML D5W 50 ML IV SCH (09:31)
[2020-04-24] MEDS: ASPirin-EC 81 mg tab PO SCH (09:31)
[2020-04-24] MEDS: GABAPENTIN 300 MG CAP PO SCH (09:32)
[2020-04-24] MEDS: METOPROLOL SUCCINATE XL 50 MG TAB PO SCH (09:33)
[2020-04-24] MEDS: ENOXAPARIN SOD 40 MG/0.4 ML SYRINGE SC SCH (09:34)
[2020-04-24] MEDS: oxyCODONE HCL 5MG TAB PO PRN (09:35)
[2020-04-24] MEDS: PANTOPRAZOLE 40 MG/10 ML VIAL INJ IV SCH (09:35)
[2020-04-24] MEDS: PROMETHAZINE W/CODEINE 5 ML ORAL SYRUP PO PRN (10:32)
== END 2020-04-24 15:05 | disposition home or self-care (01) | DRG 392 ==
LOC: EDBD 12:03 → ER 12:03 → TELE 12:04 → TELE-EAST 16:20
PROVIDERS: ADMIT Hospitalist; ATTEND Internal Medicine
DX: R11.2 Nausea with vomiting, unspecified (principal); C22.0 Liver cell carcinoma; N39.0 Urinary tract infection, site not specified; E44.0 Moderate protein-calorie malnutrition; E87.1 Hypo-osmolality and hyponatremia; Z20.822 Contact with and (suspected) exposure to COVID-19; R10.9 Unspecified abdominal pain; J45.909 Unspecified asthma, uncomplicated; I10 Essential (primary) hypertension; E11.21 Type 2 diabetes mellitus with diabetic nephropathy; T45.1X5A Adverse effect of antineoplastic and immunosuppressive drugs, initial encounter; E66.01 Morbid (severe) obesity due to excess calories; E78.5 Hyperlipidemia, unspecified; E86.0 Dehydration; E11.40 Type 2 diabetes mellitus with diabetic neuropathy, unspecified; F41.9 Anxiety disorder, unspecified; E87.6 Hypokalemia; Z68.38 Body mass index [BMI] 38.0-38.9, adult; Z88.8 Allergy status to other drugs, medicaments and biological substances; Z90.49 Acquired absence of other specified parts of digestive tract; Z90.710 Acquired absence of both cervix and uterus
CPT/HCPCS: 36415; 70450; 71045; 73030; 80048; 80053; 80061; 80307; 81001; 82150; 82962; 83036; 83690; 83735; 84100; 84484; 85025; 85610; 85730; 87040; 87086; 87426; 93005; 96361; 96365; 96366; 96368; 96375; 96376; C9113; G0378; J0696; J1100; J1815; J2405

== ENCOUNTER → 2020-05-05 | Outpatient (CLI) | payer MEDICARE, MEDICAID ==
[~2020-05-05] MED LIST changes: +ASPI-498 PO; +ATOR40TA52 PO; -CARB200T4 PO; +EMPA1TAB PO; +FENO145T27 PO; -INSLANTI SC; +INSU100I47 SC; +INSU1INJ19 SC; +METO25TA93 PO; +MORP30TA5 PO; -OXY10CRT PO; +OXYC-902 PO
[2020-05-05 11:16] LABS: Basophils # (auto) 0 10 ^3/uL (0-0.2); Basophils % (auto) 0.8 % (0.0-2.0); Eosinophils # (auto) 0.2 10 ^3/uL (0-0.8); Eosinophils % (auto) 3.1 % (0.0-7.0); Hematocrit 40.8 % (36.0-46.0); Hemoglobin 14.1 g/dL (12.2-16.2); Lymphocytes # (auto) 2.2 10 ^3/uL (0.4-5.4); Lymphocytes % (auto) 43.2 % (10.0-50.0); Mean Corpuscular Hemoglobin 32.8 pg (28.0-32.0); Mean Corpuscular Hgb Conc. 34.5 g/dL (32.0-36.0); Mean Corpuscular Volume 94.9 fL (80.0-100.0); Monocytes # (auto) 0.4 10 ^3/uL (0-1.3); Monocytes % (auto) 7.9 % (0.0-12.0); Neutrophils # (auto) 2.3 10 ^3/uL (1.6-8.6); Nucleated Red Blood Cells % 0.1 %; Platelet Count (auto) 197 10^3/uL (140-450); Red Cell Distribution Width 13.8 % (11.8-14.3); White Blood Cell 5.1 10^3/uL (4.4-10.8)
[2020-05-05 11:57] LABS: Potassium 3.1 mmol/L (3.5-5.1)
[2020-05-05 12:13] LABS: Albumin 3.5 g/dL (3.4-5.0); BUN/Creatinine Ratio 13.4; Bilirubin, Total 0.6 mg/dL (0.2-1.0); Total Protein 6.9 g/dL (6.4-8.2)
== END | disposition home or self-care (01) ==
LOC: LAB 11:05
PROVIDERS: ATTEND Internal Medicine
DX: C18.9 Malignant neoplasm of colon, unspecified (principal); Z88.8 Allergy status to other drugs, medicaments and biological substances
CPT/HCPCS: 36415; 80053; 82378; 83615; 85025

== ENCOUNTER 2020-05-15 14:22 | Inpatient (IN) | payer MEDICARE, MEDICAID ==
[~2020-05-15] VITALS: Ht 177.8 cm; Wt 86.0 kg
[2020-05-15] MEDS ORDERED: SODIUM CHLORIDE 0.9% 1,000 ML IVB ONE (14:45)
[2020-05-15 15:13] LABS: Basophils # (auto) 0.1 10 ^3/uL (0-0.2); Basophils % (auto) 1.1 % (0.0-2.0); Eosinophils # (auto) 0.1 10 ^3/uL (0-0.8); Hematocrit 50.8 % (36.0-46.0); Hemoglobin 17.1 g/dL (12.2-16.2); Lymphocytes # (auto) 1.6 10 ^3/uL (0.4-5.4); Lymphocytes % (auto) 23.7 % (10.0-50.0); Mean Corpuscular Hemoglobin 32.9 pg (28.0-32.0); Mean Corpuscular Hgb Conc. 33.6 g/dL (32.0-36.0); Mean Corpuscular Volume 97.8 fL (80.0-100.0); Monocytes # (auto) 0.3 10 ^3/uL (0-1.3); Monocytes % (auto) 4.9 % (0.0-12.0); Neutrophils # (auto) 4.7 10 ^3/uL (1.6-8.6); Neutrophils % (auto) 68.3 % (37.0-80.0); Nucleated Red Blood Cells % 0.1 %; Platelet Count (auto) 275 10^3/uL (140-450); Red Blood Cells 5.19 10^6/uL (4.0-5.20); Red Cell Distribution Width 13.7 % (11.8-14.3); White Blood Cell 6.8 10^3/uL (4.4-10.8)
[2020-05-15 15:30] LABS: Albumin 3.9 g/dL (3.4-5.0); Anion Gap 10 (5-15); Blood Urea Nitrogen 21 mg/dL (7-18); Calcium 9.6 mg/dL (8.5-10.1); Carbon Dioxide 23 mmol/L (21-32); Chloride 100 mmol/L (98-107); Magnesium 2.9 mg/dL (1.6-2.6); Potassium 4.4 mmol/L (3.5-5.1); Sodium 133 mmol/L (136-145)
[2020-05-15] MEDS ORDERED: HYDROmorphone HCL 2 MG/ML VL IV ONE (15:30)
[2020-05-15 15:39] LABS: Alanine Aminotransferase 16 U/L (13-56); Alkaline Phosphatase 119 U/L (45-117); Aspartate Aminotransferase 5 U/L (15-37); BUN/Creatinine Ratio 16.9; Bilirubin, Total 0.7 mg/dL (0.2-1.0); Blood Alcohol < 3.0 mg/dL (0-5); GFR African American 57 mL/min; GFR Non-African American 47 mL/min; Total Protein 7.9 g/dL (6.4-8.2)
[2020-05-15 15:41] LABS: Glucose 616 mg/dL (74-106)
[2020-05-15] MEDS ORDERED: InsuLIN REG 1unit/0.01ml Soln (100units/ml) IV ONE (15:45)
[2020-05-15] MEDS ORDERED: INSULIN LANTUS (GLARGINE) 1 /0.01ml (100units/ml) SC ONE (16:00)
[2020-05-15] MEDS ORDERED: InsuLIN R (HUMAN) 100 UNITS in SODIUM CHL 0.9% 99 ML IV SCH (16:00)
[2020-05-15] MEDS ORDERED: DEXTROSE (50%) 50ML SYRG IV PRN ×2 (16:00→16:30)
[2020-05-15 16:15] LABS: Urine Bacteria NONE SEEN /hpf (None Seen); Urine Blood Negative /uL (Negative); Urine Specific Gravity 1.035 (1.001-1.035); Urine WBC 1 /hpf (0 - 5)
[2020-05-15] MEDS ORDERED: FLUCONAZOLE 100 MG TAB PO ONE (16:30)
[2020-05-15] MEDS ORDERED: POLYETHYLENE GLYCOL 17 GM PWDR PO ONE (16:30)
[2020-05-15] MEDS ORDERED: NITROGLYCERIN 0.4 MG SL TAB SL PRN (16:30)
[2020-05-15] MEDS ORDERED: BISACODYL 10 MG RECT SUPP PR ONE (16:30)
[2020-05-15] MEDS ORDERED: ACCU-CHEK COMFORT CURVE STRIP VI SCH (16:30)
[2020-05-15] MEDS ORDERED: MORPHINE SULF INJ 2 MG/ML SYRINGE 1ML IV PRN (16:30)
[2020-05-15] MEDS: MORPHINE SULF 30 mg ER tab PO SCH (16:52)
[2020-05-15] MEDS: SOD CHL 0.45% 1,000 ML IV SCH (17:56)
[2020-05-15] MEDS: ACCU-CHEK COMFORT CURVE STRIP VI SCH (20:11)
[2020-05-15] MEDS: InsuLIN REG 1unit/0.01ml Soln (100units/ml) SC SCH (20:12)
[2020-05-15] MEDS: HYDROmorphone HCL 2 MG/ML VL IV PRN (21:44)
[2020-05-15] MEDS: CLINDAMYCIN 300MG IV 50 ML IV SCH (22:29)
[2020-05-15] MEDS: GABAPENTIN 300 MG CAP PO SCH (22:29)
[2020-05-15] MEDS: DOCUSATE SOD 100 MG CAP PO SCH (22:29)
[2020-05-16] MEDS: ACCU-CHEK COMFORT CURVE STRIP VI SCH ×6 (00:13→20:56)
[2020-05-16] MEDS: InsuLIN REG 1unit/0.01ml Soln (100units/ml) SC SCH ×6 (00:14→20:56)
[2020-05-16] MEDS: SOD CHL 0.45% 1,000 ML IV SCH ×3 (00:29→16:25)
[2020-05-16] MEDS: MORPHINE SULF 30 mg ER tab PO SCH ×2 (04:15→16:24)
[2020-05-16 04:25] VITALS: BP 128/86
[2020-05-16] MEDS: CLINDAMYCIN 300MG IV 50 ML IV SCH (06:16)
[2020-05-16 08:34] LABS: Basophils # (auto) 0 10 ^3/uL (0-0.2); Basophils % (auto) 0.5 % (0.0-2.0); Eosinophils # (auto) 0.2 10 ^3/uL (0-0.8); Eosinophils % (auto) 2.2 % (0.0-7.0); Hematocrit 44.9 % (36.0-46.0); Hemoglobin 14.9 g/dL (12.2-16.2); Lymphocytes # (auto) 3.1 10 ^3/uL (0.4-5.4); Lymphocytes % (auto) 38.7 % (10.0-50.0); Mean Corpuscular Hemoglobin 32.3 pg (28.0-32.0); Mean Corpuscular Hgb Conc. 33.3 g/dL (32.0-36.0); Mean Corpuscular Volume 97.2 fL (80.0-100.0); Monocytes # (auto) 0.5 10 ^3/uL (0-1.3); Monocytes % (auto) 6.7 % (0.0-12.0); Neutrophils # (auto) 4.1 10 ^3/uL (1.6-8.6); Neutrophils % (auto) 51.9 % (37.0-80.0); Nucleated Red Blood Cells % 0.2 %; Platelet Count (auto) 266 10^3/uL (140-450); Red Blood Cells 4.62 10^6/uL (4.0-5.20); Red Cell Distribution Width 13.9 % (11.8-14.3); White Blood Cell 7.9 10^3/uL (4.4-10.8)
[2020-05-16 08:44] LABS: BUN/Creatinine Ratio 24.4; Calcium 8.6 mg/dL (8.5-10.1); Potassium 3.8 mmol/L (3.5-5.1)
[2020-05-16 08:49] VITALS: BP 131/84
[2020-05-16] MEDS: DOCUSATE SOD 100 MG CAP PO SCH ×2 (09:18→20:57)
[2020-05-16] MEDS: GABAPENTIN 300 MG CAP PO SCH ×2 (09:19→20:57)
[2020-05-16] MEDS: ASPirin-EC 81 mg tab PO SCH (09:21)
[2020-05-16] MEDS: LACTULOSE 20Gm/30ML SOLN PO PRN (09:22)
[2020-05-16] MEDS: ATORVASTATIN 20 MG TAB PO SCH (09:22)
[2020-05-16] MEDS: HYDROmorphone HCL 2 MG/ML VL IV PRN (09:24)
[2020-05-16] MEDS ORDERED: INSULIN LISPRO (HUMAN) 100 UNITS/ML ML SC ONE (09:45)
[2020-05-16] MEDS ORDERED: POLYETHYLENE GLYCOL 17 GM PWDR PO ONE (09:45)
[2020-05-16] MEDS ORDERED: BISACODYL 5 MG EC TAB PO ONE (09:45)
[2020-05-16] MEDS: INSULIN LANTUS (GLARGINE) 1 /0.01ml (100units/ml) SC SCH (09:46)
[2020-05-16] MEDS: POLYETHYLENE GLYCOL 17 GM PWDR PO SCH (09:46)
[2020-05-16] MEDS ORDERED: INSULIN LANTUS (GLARGINE) 1 /0.01ml (100units/ml) SC SCH (10:00)
[2020-05-16] MEDS ORDERED: FLUCONAZOLE 100 MG TAB PO SCH (10:00)
[2020-05-16] MEDS ORDERED: FERROUS SULFATE 325 MG TAB PO SCH (10:00)
[2020-05-16] MEDS: FLUCONAZOLE 200MG/100ML 100 ML IV SCH (11:20)
[2020-05-16] MEDS: PIPERACILLIN-TAZOB 3.375GM 100 ML IV SCH ×2 (12:52→18:24)
[2020-05-16 13:00] VITALS: BP 128/72
[2020-05-16] MEDS ORDERED: MORP30TA5 PO (14:56)
[2020-05-16] MEDS ORDERED: NYS15PW TOP (14:56)
[2020-05-16] MEDS ORDERED: PROC10TA2 PO (14:56)
[2020-05-16] MEDS ORDERED: TEMA15CA2 PO (14:56)
[2020-05-16] MEDS ORDERED: ONDA-180 PO (14:56)
[2020-05-16] MEDS ORDERED: MEGE1SUS5 PO (14:56)
[2020-05-16] MEDS ORDERED: PROM2SYP2 PO (14:56)
[2020-05-16] MEDS ORDERED: LACT10SO3 PO (14:56)
[2020-05-16] MEDS ORDERED: SERT-274 PO (14:58)
[2020-05-16 16:37] VITALS: BP 127/73
[2020-05-16] MEDS ORDERED: HYDROcodone-ACET 10/325MG TAB PO PRN ×2 (21:15→22:00)
[2020-05-16 22:00] VITALS: BP 119/65
[2020-05-17] MEDS: SOD CHL 0.45% 1,000 ML IV SCH ×3 (00:30→16:30)
[2020-05-17] MEDS: InsuLIN REG 1unit/0.01ml Soln (100units/ml) SC SCH ×6 (03:55→20:32)
[2020-05-17] MEDS: ACCU-CHEK COMFORT CURVE STRIP VI SCH ×6 (03:55→20:20)
[2020-05-17 05:00] VITALS: BP 129/84
[2020-05-17] MEDS: PIPERACILLIN-TAZOB 3.375GM 100 ML IV SCH ×4 (06:36→18:11)
[2020-05-17 06:53] LABS: Basophils # (auto) 0 10 ^3/uL (0-0.2); Basophils % (auto) 0.7 % (0.0-2.0); Eosinophils # (auto) 0.1 10 ^3/uL (0-0.8); Eosinophils % (auto) 2.1 % (0.0-7.0); Hematocrit 39.7 % (36.0-46.0); Hemoglobin 13.8 g/dL (12.2-16.2); Lymphocytes # (auto) 1.8 10 ^3/uL (0.4-5.4); Lymphocytes % (auto) 31.8 % (10.0-50.0); Mean Corpuscular Hemoglobin 33.3 pg (28.0-32.0); Mean Corpuscular Hgb Conc. 34.8 g/dL (32.0-36.0); Mean Corpuscular Volume 95.7 fL (80.0-100.0); Monocytes # (auto) 0.4 10 ^3/uL (0-1.3); Monocytes % (auto) 7.4 % (0.0-12.0); Neutrophils # (auto) 3.3 10 ^3/uL (1.6-8.6); Nucleated Red Blood Cells % 0.1 %; Platelet Count (auto) 209 10^3/uL (140-450); Red Blood Cells 4.14 10^6/uL (4.0-5.20); Red Cell Distribution Width 13.6 % (11.8-14.3); White Blood Cell 5.7 10^3/uL (4.4-10.8)
[2020-05-17 07:16] LABS: Albumin 2.8 g/dL (3.4-5.0); Magnesium 2.2 mg/dL (1.6-2.6); Potassium 3.5 mmol/L (3.5-5.1)
[2020-05-17 07:20] LABS: Bilirubin, Total 0.4 mg/dL (0.2-1.0); Phosphorus 2.6 mg/dL (2.5-4.90); Total Protein 5.7 g/dL (6.4-8.2)
[2020-05-17 08:54] VITALS: BP 137/91
[2020-05-17] MEDS: GABAPENTIN 300 MG CAP PO SCH ×2 (09:20→21:17)
[2020-05-17] MEDS: DOCUSATE SOD 100 MG CAP PO SCH ×2 (09:20→21:18)
[2020-05-17] MEDS: ATORVASTATIN 20 MG TAB PO SCH (09:20)
[2020-05-17] MEDS: INSULIN LANTUS (GLARGINE) 1 /0.01ml (100units/ml) SC SCH (09:21)
[2020-05-17] MEDS: ASPirin-EC 81 mg tab PO SCH (09:21)
[2020-05-17] MEDS: FLUCONAZOLE 200MG/100ML 100 ML IV SCH (09:21)
[2020-05-17] MEDS: HYDROmorphone HCL 2 MG/ML VL IV PRN ×3 (09:22→20:20)
[2020-05-17] MEDS: POLYETHYLENE GLYCOL 17 GM PWDR PO SCH (09:22)
[2020-05-17] MEDS: LACTULOSE 20Gm/30ML SOLN PO PRN (09:22)
[2020-05-17] MEDS ORDERED: CATHFLO ACTIVASE (ALTEPLASE) 2 MG VIAL IV ONE (11:00)
[2020-05-17] MEDS: NYSTATIN TOPICAL POWDER 15GM TOP SCH ×2 (11:30→21:18)
[2020-05-17 12:46] LABS: INR 0.97 (0.9-1.15); Partial Thromboplastin Time 23.9 sec (23.0-31.2)
[2020-05-17 13:00] VITALS: BP 123/79
[2020-05-17 17:00] VITALS: BP 131/74
[2020-05-17 22:00] VITALS: BP 149/86
[2020-05-18] MEDS: PIPERACILLIN-TAZOB 3.375GM 100 ML IV SCH ×2 (00:19→05:42)
[2020-05-18] MEDS: ACCU-CHEK COMFORT CURVE STRIP VI SCH ×3 (00:19→08:41)
[2020-05-18] MEDS: InsuLIN REG 1unit/0.01ml Soln (100units/ml) SC SCH ×3 (00:26→08:40)
[2020-05-18] MEDS: HYDROmorphone HCL 2 MG/ML VL IV PRN ×2 (00:27→04:23)
[2020-05-18] MEDS: SOD CHL 0.45% 1,000 ML IV SCH ×2 (00:36→08:41)
[2020-05-18 05:00] VITALS: BP 121/75
[2020-05-18] MEDS ORDERED: LIDOCAINE W/ EPINEPHRINE 1% 20ML VIAL ONE (08:05)
[2020-05-18 09:00] VITALS: BP 118/73
[2020-05-18] MEDS ORDERED: fentaNYL CITRATE 100 MCG/2 ML VL ONE (09:01)
[2020-05-18] MEDS ORDERED: MIDAZOLAM HCL 1MG/1ML-2 ML VIAL ONE (09:01)
[2020-05-18] MEDS ORDERED: PROPOFOL 10 MG/ML 20 ML IV ONE (10:53)
[2020-05-18] MEDS ORDERED: LIDOCAINE 2% (LOCAL ANESTH.) PF 5ml SDV ONE (10:53)
[2020-05-18 12:30] VITALS: BP 122/90
== END 2020-05-18 13:40 | disposition home or self-care (01) | DRG 314 ==
LOC: ER 14:22 → EDBD 14:22 → TELE 16:18 → TELE-WESTW 05-16 03:36
PROVIDERS: ADMIT Nurse Practitioner Acute Care; ATTEND Internal Medicine
PROC: 02PYX3Z Removal of Infusion Device from Great Vessel, External Approach (ICD-10-PCS; principal; 2020-05-18 08:54)
DX: T82.898A Other specified complication of vascular prosthetic devices, implants and grafts, initial encounter (principal); N17.0 Acute kidney failure with tubular necrosis; C18.9 Malignant neoplasm of colon, unspecified; L02.215 Cutaneous abscess of perineum; B37.3 Candidiasis of vulva and vagina; E86.0 Dehydration; E11.65 Type 2 diabetes mellitus with hyperglycemia; R55 Syncope and collapse; K59.00 Constipation, unspecified; E78.5 Hyperlipidemia, unspecified; E66.9 Obesity, unspecified; I10 Essential (primary) hypertension; G89.4 Chronic pain syndrome; Z79.891 Long term (current) use of opiate analgesic; E11.40 Type 2 diabetes mellitus with diabetic neuropathy, unspecified; E04.1 Nontoxic single thyroid nodule; Z88.8 Allergy status to other drugs, medicaments and biological substances; Z20.822 Contact with and (suspected) exposure to COVID-19; F41.9 Anxiety disorder, unspecified; I70.8 Atherosclerosis of other arteries; J45.909 Unspecified asthma, uncomplicated; N28.1 Cyst of kidney, acquired; Z79.899 Other long term (current) drug therapy; Z80.9 Family history of malignant neoplasm, unspecified; Z90.49 Acquired absence of other specified parts of digestive tract; Z87.891 Personal history of nicotine dependence; Z90.710 Acquired absence of both cervix and uterus; Z91.19 Patient's noncompliance with other medical treatment and regimen; Z86.73 Personal history of transient ischemic attack (TIA), and cerebral infarction without residual deficits; Z85.05 Personal history of malignant neoplasm of liver; Z79.4 Long term (current) use of insulin; Z79.82 Long term (current) use of aspirin; Y83.8 Other surgical procedures as the cause of abnormal reaction of the patient, or of later complication, without mention of misadventure at the time of the procedure; Y92.89 Other specified places as the place of occurrence of the external cause; Z68.27 Body mass index [BMI] 27.0-27.9, adult
CPT/HCPCS: 36415; 51702; 71045; 74176; 80048; 80053; 80320; 81001; 82962; 83735; 84100; 84484; 85025; 85610; 85730; 87426; 93005; 96361; 96372; 96374; 96375; G0378; J1450; J1815; J2001; J2250; J2543; J2704; J3490

== ENCOUNTER 2020-06-11 17:35 | Inpatient (IN) | payer MEDICARE, MEDICAID ==
[~2020-06-11] VITALS: Ht 177.8 cm; Wt 88.0 kg
[~2020-06-11 17:35] MED LIST changes: +LACT10SO3 PO; +MEGE1SUS5 PO; +NYS15PW TOP; +ONDA-180 PO; +PROC10TA2 PO; +PROM2SYP2 PO; +SERT-274 PO; +TEMA15CA2 PO
[2020-06-11] MEDS ORDERED: ACCU-CHEK COMFORT CURVE STRIP VI ONE (18:15)
[2020-06-11 18:58] LABS: Basophils # (auto) 0.1 10 ^3/uL (0-0.2); Basophils % (auto) 1.3 % (0.0-2.0); Eosinophils # (auto) 0.1 10 ^3/uL (0-0.8); Eosinophils % (auto) 0.9 % (0.0-7.0); Hematocrit 41.4 % (36.0-46.0); Hemoglobin 14.4 g/dL (12.2-16.2); Lymphocytes # (auto) 2.5 10 ^3/uL (0.4-5.4); Mean Corpuscular Hemoglobin 33.9 pg (28.0-32.0); Mean Corpuscular Hgb Conc. 34.8 g/dL (32.0-36.0); Mean Corpuscular Volume 97.4 fL (80.0-100.0); Monocytes # (auto) 0.4 10 ^3/uL (0-1.3); Monocytes % (auto) 5.3 % (0.0-12.0); Neutrophils # (auto) 5.1 10 ^3/uL (1.6-8.6); Neutrophils % (auto) 62.5 % (37.0-80.0); Nucleated Red Blood Cells % 0.1 %; Platelet Count (auto) 234 10^3/uL (140-450); Red Blood Cells 4.25 10^6/uL (4.0-5.20); Red Cell Distribution Width 13.2 % (11.8-14.3); White Blood Cell 8.2 10^3/uL (4.4-10.8)
[2020-06-11 19:05] LABS: Albumin 3.4 g/dL (3.4-5.0); Calcium 8.9 mg/dL (8.5-10.1); Potassium 3.7 mmol/L (3.5-5.1)
[2020-06-11 19:07] LABS: BUN/Creatinine Ratio 19.4
[2020-06-11 19:09] LABS: Bilirubin, Total 0.3 mg/dL (0.2-1.0); Total Protein 6.6 g/dL (6.4-8.2)
[2020-06-11] MEDS ORDERED: DEXTROSE (50%) 50ML SYRG IV PRN (21:30)
[2020-06-11] MEDS ORDERED: NITROGLYCERIN 0.4 MG SL TAB SL PRN (21:30)
[2020-06-11] MEDS ORDERED: ACETAMINOPHEN 325 MG TAB PO PRN (21:30)
[2020-06-11] MEDS ORDERED: MORPHINE SULF INJ 2 MG/ML SYRINGE 1ML IV PRN (21:30)
[2020-06-11] MEDS ORDERED: ONDANSETRON HCL 4 MG/2 ML VIAL IV PRN (21:30)
[2020-06-11] MEDS: InsuLIN REG 1unit/0.01ml Soln (100units/ml) SC SCH (22:00)
[2020-06-11] MEDS: ATORVASTATIN 20 MG TAB PO SCH (22:08)
[2020-06-11] MEDS: GABAPENTIN 300 MG CAP PO SCH (22:09)
[2020-06-11] MEDS: METOPROLOL TARTRATE 25 MG TAB PO SCH (22:09)
[2020-06-11] MEDS: MORPHINE SULF 30 mg ER tab PO SCH (22:09)
[2020-06-11] MEDS: ACCU-CHEK COMFORT CURVE STRIP VI SCH (22:10)
[2020-06-11 23:40] LABS: Urine Bacteria FEW /hpf (None Seen); Urine Blood Negative /uL (Negative); Urine Mucus FEW (None Seen); Urine Specific Gravity 1.025 (1.001-1.035); Urine WBC 2 /hpf (0 - 5)
[2020-06-12] VITALS (8 sets, daily range): BP systolic 113–153; BP diastolic 69–89
[2020-06-12] MEDS ORDERED: PNEUMOCOCCAL VACC POLYS 25 MCG/0.5 ML VIAL IM ONE (01:45)
[2020-06-12] MEDS ORDERED: INFLUENZA QUAD 2020-2021 0.5 ML SYRG IM ONE (01:45)
[2020-06-12] MEDS: TEMAZEPAM 15 MG CAP PO PRN ×2 (01:54→22:25)
[2020-06-12] MEDS: ACCU-CHEK COMFORT CURVE STRIP VI SCH ×4 (06:17→22:29)
[2020-06-12] MEDS: InsuLIN REG 1unit/0.01ml Soln (100units/ml) SC SCH ×4 (06:19→22:41)
[2020-06-12] MEDS: oxyCODONE HCL 5MG TAB PO PRN ×3 (06:20→23:41)
[2020-06-12 08:26] LABS: Basophils # (auto) 0 10 ^3/uL (0-0.2); Basophils % (auto) 0.7 % (0.0-2.0); Eosinophils # (auto) 0.1 10 ^3/uL (0-0.8); Eosinophils % (auto) 2.2 % (0.0-7.0); Hematocrit 40.1 % (36.0-46.0); Hemoglobin 13.8 g/dL (12.2-16.2); Lymphocytes # (auto) 2.6 10 ^3/uL (0.4-5.4); Lymphocytes % (auto) 37.7 % (10.0-50.0); Mean Corpuscular Hemoglobin 33.9 pg (28.0-32.0); Mean Corpuscular Hgb Conc. 34.3 g/dL (32.0-36.0); Mean Corpuscular Volume 98.7 fL (80.0-100.0); Monocytes # (auto) 0.4 10 ^3/uL (0-1.3); Monocytes % (auto) 6.3 % (0.0-12.0); Neutrophils # (auto) 3.7 10 ^3/uL (1.6-8.6); Neutrophils % (auto) 53.1 % (37.0-80.0); Nucleated Red Blood Cells % 0.1 %; Platelet Count (auto) 217 10^3/uL (140-450); Red Blood Cells 4.06 10^6/uL (4.0-5.20); Red Cell Distribution Width 13.5 % (11.8-14.3); White Blood Cell 6.9 10^3/uL (4.4-10.8)
[2020-06-12 08:47] LABS: BUN/Creatinine Ratio 23.2; Calcium 8.8 mg/dL (8.5-10.1); Potassium 3.5 mmol/L (3.5-5.1)
[2020-06-12] MEDS: METOPROLOL TARTRATE 25 MG TAB PO SCH ×2 (10:54→22:21)
[2020-06-12] MEDS: GABAPENTIN 300 MG CAP PO SCH ×2 (10:55→22:19)
[2020-06-12] MEDS: MORPHINE SULF 30 mg ER tab PO SCH ×2 (10:55→22:23)
[2020-06-12] MEDS: ENOXAPARIN SOD 40 MG/0.4 ML SYRINGE SC SCH (10:56)
[2020-06-12] MEDS: SERTRALINE HCL 50 MG TAB PO SCH (10:56)
[2020-06-12] MEDS: ATORVASTATIN 20 MG TAB PO SCH (22:19)
[2020-06-13] MEDS: guaiFENesin-DM 100/10mg/5ml SYR PO PRN ×3 (02:08→10:33)
[2020-06-13 05:00] VITALS: BP 146/89
[2020-06-13] MEDS: InsuLIN REG 1unit/0.01ml Soln (100units/ml) SC SCH ×4 (06:35→22:30)
[2020-06-13] MEDS: ACCU-CHEK COMFORT CURVE STRIP VI SCH ×4 (06:37→22:29)
[2020-06-13] MEDS: oxyCODONE HCL 5MG TAB PO PRN ×3 (06:53→22:35)
[2020-06-13 08:00] VITALS: BP 147/79
[2020-06-13 09:15] VITALS: BP 147/79
[2020-06-13] MEDS: MORPHINE SULF 30 mg ER tab PO SCH (10:28)
[2020-06-13] MEDS: ENOXAPARIN SOD 40 MG/0.4 ML SYRINGE SC SCH (10:28)
[2020-06-13] MEDS: SERTRALINE HCL 50 MG TAB PO SCH (10:29)
[2020-06-13] MEDS: METOPROLOL TARTRATE 25 MG TAB PO SCH ×2 (10:32→22:28)
[2020-06-13] MEDS: GABAPENTIN 300 MG CAP PO SCH ×2 (10:33→22:28)
[2020-06-13 13:00] VITALS: BP 148/76
[2020-06-13 17:00] VITALS: BP 146/91
[2020-06-13] MEDS: PROMETHAZINE W/CODEINE 5 ML ORAL SYRUP PO PRN (18:44)
[2020-06-13 21:41] VITALS: BP 141/80
[2020-06-13] MEDS ORDERED: ALPRAZolam 0.5 MG TAB PO PRN (22:00)
[2020-06-13] MEDS: ATORVASTATIN 20 MG TAB PO SCH (22:27)
[2020-06-14] MEDS: PROMETHAZINE W/CODEINE 5 ML ORAL SYRUP PO PRN ×2 (02:37→08:38)
[2020-06-14 05:51] VITALS: BP 138/94
[2020-06-14] MEDS: ACCU-CHEK COMFORT CURVE STRIP VI SCH ×2 (06:09→11:56)
[2020-06-14] MEDS: InsuLIN REG 1unit/0.01ml Soln (100units/ml) SC SCH ×2 (06:17→11:57)
[2020-06-14] MEDS: oxyCODONE HCL 5MG TAB PO PRN (06:35)
[2020-06-14 08:50] VITALS: BP 129/78
[2020-06-14] MEDS: ENOXAPARIN SOD 40 MG/0.4 ML SYRINGE SC SCH (09:46)
[2020-06-14] MEDS: SERTRALINE HCL 50 MG TAB PO SCH (09:46)
[2020-06-14] MEDS: METOPROLOL TARTRATE 25 MG TAB PO SCH (09:46)
[2020-06-14] MEDS: GABAPENTIN 300 MG CAP PO SCH (09:46)
[2020-06-14] MEDS ORDERED: ALPRAZolam 0.5 MG TAB PO ONE (11:30)
[2020-06-14 12:54] VITALS: BP 136/82
[2020-06-14 13:00] VITALS: BP 136/82
== END 2020-06-14 14:00 | disposition home or self-care (01) | DRG 312 ==
LOC: EDBD 17:35 → ER 17:38 → TELE 21:23 → TELE-WESTW 23:29
PROVIDERS: ADMIT Nurse Practitioner; ATTEND Internal Medicine
DX: R55 Syncope and collapse (principal); C78.7 Secondary malignant neoplasm of liver and intrahepatic bile duct; G89.3 Neoplasm related pain (acute) (chronic); E11.65 Type 2 diabetes mellitus with hyperglycemia; G44.309 Post-traumatic headache, unspecified, not intractable; G89.4 Chronic pain syndrome; E78.5 Hyperlipidemia, unspecified; I10 Essential (primary) hypertension; J45.909 Unspecified asthma, uncomplicated; S13.4XXA Sprain of ligaments of cervical spine, initial encounter; E66.9 Obesity, unspecified; K59.00 Constipation, unspecified; F12.90 Cannabis use, unspecified, uncomplicated; G47.00 Insomnia, unspecified; X58.XXXA Exposure to other specified factors, initial encounter; Z20.822 Contact with and (suspected) exposure to COVID-19; Z79.4 Long term (current) use of insulin; Z82.49 Family history of ischemic heart disease and other diseases of the circulatory system; Z85.038 Personal history of other malignant neoplasm of large intestine; Z86.73 Personal history of transient ischemic attack (TIA), and cerebral infarction without residual deficits; Z90.710 Acquired absence of both cervix and uterus; Z92.21 Personal history of antineoplastic chemotherapy; Y93.89 Activity, other specified; Y92.89 Other specified places as the place of occurrence of the external cause; Y99.8 Other external cause status; Z68.27 Body mass index [BMI] 27.0-27.9, adult; Z90.49 Acquired absence of other specified parts of digestive tract; Z88.8 Allergy status to other drugs, medicaments and biological substances; Z23 Encounter for immunization; M54.2 Cervicalgia
CPT/HCPCS: 36415; 70450; 71045; 72125; 80048; 80053; 81001; 82962; 84484; 85025; 87081; 87426; 93005; 93306; 93886; G0378; J1815

== ENCOUNTER → 2020-07-27 | Outpatient (CLI) | payer MEDICARE, MEDICAID ==
[~2020-07-27] MED LIST changes: -SERT-274 PO; +SERT50TA19 PO
[2020-07-27 09:38] LABS: Basophils # (auto) 0.1 10 ^3/uL (0-0.2); Eosinophils # (auto) 0.1 10 ^3/uL (0-0.8); Hematocrit 42.1 % (36.0-46.0); Hemoglobin 14.9 g/dL (12.2-16.2); Mean Corpuscular Hgb Conc. 35.4 g/dL (32.0-36.0); Monocytes # (auto) 0.3 10 ^3/uL (0-1.3); Neutrophils # (auto) 3.5 10 ^3/uL (1.6-8.6)
[2020-07-27 09:40] LABS: Basophils % (auto) 1.2 % (0.0-2.0); Eosinophils % (auto) 2.3 % (0.0-7.0); Lymphocytes % (auto) 32.9 % (10.0-50.0); Mean Corpuscular Hemoglobin 34.1 pg (28.0-32.0); Mean Corpuscular Volume 96.2 fL (80.0-100.0); Monocytes % (auto) 4.9 % (0.0-12.0); Neutrophils % (auto) 58.7 % (37.0-80.0); Platelet Count (auto) 244 10^3/uL (140-450); Red Blood Cells 4.37 10^6/uL (4.0-5.20)
[2020-07-27 10:59] LABS: Potassium 3.9 mmol/L (3.5-5.1)
[2020-07-27 11:06] LABS: Albumin 3.7 g/dL (3.4-5.0); BUN/Creatinine Ratio 23.6; Bilirubin, Total 0.4 mg/dL (0.2-1.0); Calcium 9.4 mg/dL (8.5-10.1)
== END | disposition home or self-care (01) ==
LOC: LAB 09:01
PROVIDERS: ATTEND Internal Medicine
DX: C18.9 Malignant neoplasm of colon, unspecified (principal)
CPT/HCPCS: 36415; 80053; 82378; 83615; 85025

== ENCOUNTER → 2020-10-18 | Outpatient (CLI) | payer MEDICARE, MEDICAID ==
[2020-10-18 15:50] LABS: Basophils # (auto) 0.1 10 ^3/uL (0-0.2); Monocytes # (auto) 0.3 10 ^3/uL (0-1.3); Monocytes % (auto) 4.1 % (0.0-12.0); Neutrophils # (auto) 3.6 10 ^3/uL (1.6-8.6)
[2020-10-18 15:54] LABS: Basophils % (auto) 2.3 % (0.0-2.0); Eosinophils # (auto) 0.2 10 ^3/uL (0-0.8); Eosinophils % (auto) 3.1 % (0.0-7.0); Hematocrit 44.3 % (36.0-46.0); Hemoglobin 15.6 g/dL (12.2-16.2); Lymphocytes # (auto) 2.2 10 ^3/uL (0.4-5.4); Lymphocytes % (auto) 33.8 % (10.0-50.0); Mean Corpuscular Hgb Conc. 35.1 g/dL (32.0-36.0); Mean Corpuscular Volume 96.8 fL (80.0-100.0); Neutrophils % (auto) 56.7 % (37.0-80.0); Nucleated Red Blood Cells % 0.1 %; Red Blood Cells 4.58 10^6/uL (4.0-5.20); Red Cell Distribution Width 12.6 % (11.8-14.3); White Blood Cell 6.4 10^3/uL (4.4-10.8)
[2020-10-18 16:05] LABS: Urine Bacteria NONE SEEN /hpf (None Seen); Urine Blood Negative /uL (Negative); Urine Specific Gravity 1.032 (1.001-1.035); Urine WBC 4 /hpf (0 - 5)
[2020-10-18 16:10] LABS: Albumin 3.6 g/dL (3.4-5.0); Anion Gap 7 (5-15); Blood Urea Nitrogen 18 mg/dL (7-18); Calcium 9.5 mg/dL (8.5-10.1); Carbon Dioxide 22 mmol/L (21-32); Chloride 105 mmol/L (98-107); Potassium 4.1 mmol/L (3.5-5.1); Sodium 134 mmol/L (136-145)
[2020-10-18 16:18] LABS: Alanine Aminotransferase 31 U/L (13-56); Alkaline Phosphatase 141 U/L (45-117); Aspartate Aminotransferase 12 U/L (15-37); BUN/Creatinine Ratio 15.8; Bilirubin, Total 0.4 mg/dL (0.2-1.0); Cholesterol 245 mg/dL (< 200); GFR African American 63 mL/min; GFR Non-African American 52 mL/min; HDL Cholesterol 38 mg/dL (40-59); Total Protein 7.7 g/dL (6.4-8.2); Triglycerides 740 mg/dL (< 150)
[2020-10-18 16:22] LABS: Glucose 549 mg/dL (74-106)
== END | disposition home or self-care (01) ==
LOC: LAB 15:24
PROVIDERS: ATTEND Internal Medicine
DX: E11.42 Type 2 diabetes mellitus with diabetic polyneuropathy (principal)
CPT/HCPCS: 36415; 80053; 80061; 81001; 82043; 83036; 84443; 85025

== ENCOUNTER → 2020-12-29 | Outpatient (CLI) | payer MEDICARE, MEDICAID ==
[2020-12-29 13:08] LABS: Basophils # (auto) 0.1 10 ^3/uL (0-0.2); Basophils % (auto) 0.9 % (0.0-2.0); Eosinophils # (auto) 0.2 10 ^3/uL (0-0.8); Eosinophils % (auto) 2.5 % (0.0-7.0); Hematocrit 45.2 % (36.0-46.0); Hemoglobin 15.2 g/dL (12.2-16.2); Lymphocytes # (auto) 2.4 10 ^3/uL (0.4-5.4); Lymphocytes % (auto) 37.4 % (10.0-50.0); Mean Corpuscular Hemoglobin 33.1 pg (28.0-32.0); Mean Corpuscular Hgb Conc. 33.6 g/dL (32.0-36.0); Mean Corpuscular Volume 98.5 fL (80.0-100.0); Monocytes # (auto) 0.4 10 ^3/uL (0-1.3); Monocytes % (auto) 5.5 % (0.0-12.0); Neutrophils # (auto) 3.5 10 ^3/uL (1.6-8.6); Neutrophils % (auto) 53.7 % (37.0-80.0); Nucleated Red Blood Cells % 0.1 %; Red Blood Cells 4.59 10^6/uL (4.0-5.20); White Blood Cell 6.4 10^3/uL (4.4-10.8)
[2020-12-29 13:32] LABS: Albumin 3.6 g/dL (3.4-5.0); Calcium 9.2 mg/dL (8.5-10.1); Potassium 3.7 mmol/L (3.5-5.1)
[2020-12-29 13:35] LABS: BUN/Creatinine Ratio 20.9; Bilirubin, Total 0.3 mg/dL (0.2-1.0); Total Protein 7.2 g/dL (6.4-8.2)
== END | disposition home or self-care (01) ==
LOC: LAB 12:43
PROVIDERS: ATTEND Internal Medicine
DX: C18.8 Malignant neoplasm of overlapping sites of colon (principal); Z88.8 Allergy status to other drugs, medicaments and biological substances
CPT/HCPCS: 36415; 80053; 82378; 83615; 85025

== ENCOUNTER → 2021-04-18 | Outpatient (CLI) | payer MEDICARE, MEDICAID ==
[2021-04-18 11:27] LABS: Basophils # (auto) 0.1 10 ^3/uL (0-0.2); Basophils % (auto) 0.9 % (0.0-2.0); Eosinophils # (auto) 0.2 10 ^3/uL (0-0.8); Eosinophils % (auto) 2.8 % (0.0-7.0); Hemoglobin 14.5 g/dL (12.2-16.2); Lymphocytes # (auto) 2.1 10 ^3/uL (0.4-5.4); Lymphocytes % (auto) 37.8 % (10.0-50.0); Mean Corpuscular Hemoglobin 33.1 pg (28.0-32.0); Mean Corpuscular Hgb Conc. 33.8 g/dL (32.0-36.0); Monocytes # (auto) 0.4 10 ^3/uL (0-1.3); Monocytes % (auto) 6.6 % (0.0-12.0); Neutrophils # (auto) 2.8 10 ^3/uL (1.6-8.6); Neutrophils % (auto) 51.9 % (37.0-80.0); Nucleated Red Blood Cells % 0.1 %; Red Blood Cells 4.39 10^6/uL (4.0-5.20); Red Cell Distribution Width 13.4 % (11.8-14.3); White Blood Cell 5.5 10^3/uL (4.4-10.8)
[2021-04-18 11:54] LABS: Albumin 3.9 g/dL (3.4-5.0); BUN/Creatinine Ratio 14.9; Bilirubin, Total 0.6 mg/dL (0.2-1.0); Calcium 9.6 mg/dL (8.5-10.1); Total Protein 7.5 g/dL (6.4-8.2)
== END | disposition home or self-care (01) ==
LOC: LAB 10:36
PROVIDERS: ATTEND Student in an Organized Health Care Education/Training Program
DX: E11.21 Type 2 diabetes mellitus with diabetic nephropathy (principal)
CPT/HCPCS: 36415; 80053; 80061; 83036; 85025

== ENCOUNTER 2022-01-25 10:56 | Emergency (ER) | payer MEDICARE, MEDICAID ==
[~2022-01-25] VITALS: Ht 177.8 cm; Wt 79.5 kg
[~2022-01-25 10:56] MED LIST changes: +BACDST PO; +FLUC150T38 PO
[2022-01-25 12:23] VITALS: BP 144/72
[2022-01-25] MEDS ORDERED: TRAM-297 PO (13:40)
== END 2022-01-25 13:50 | disposition home or self-care (01) ==
LOC: ER 10:56
DX: L02.411 Cutaneous abscess of right axilla (principal); I10 Essential (primary) hypertension; E11.9 Type 2 diabetes mellitus without complications; E78.5 Hyperlipidemia, unspecified; J45.909 Unspecified asthma, uncomplicated; Z86.73 Personal history of transient ischemic attack (TIA), and cerebral infarction without residual deficits; Z90.49 Acquired absence of other specified parts of digestive tract; Z90.710 Acquired absence of both cervix and uterus; Z90.89 Acquired absence of other organs; Z79.4 Long term (current) use of insulin; Z79.82 Long term (current) use of aspirin; Z79.899 Other long term (current) drug therapy; Z88.8 Allergy status to other drugs, medicaments and biological substances

== ENCOUNTER 2022-03-22 09:45 | Inpatient (IN) | payer MEDICARE, MEDICAID ==
[~2022-03-22] VITALS: Ht 177.8 cm; Wt 84.3 kg
[~2022-03-22 09:45] MED LIST changes: +TRAM-297 PO
[2022-03-22 10:54] LABS: Magnesium 2.5 mg/dL (1.6-2.6); Potassium 4.6 mmol/L (3.5-5.1)
[2022-03-22 11:00] LABS: Basophils # (auto) 0 10 ^3/uL (0-0.2); Eosinophils # (auto) 0.1 10 ^3/uL (0-0.8); Eosinophils % (auto) 1.6 % (0.0-7.0); Hemoglobin 13.8 g/dL (12.2-16.2); Lymphocytes # (auto) 0.6 10 ^3/uL (0.4-5.4); Lymphocytes % (auto) 15.5 % (10.0-50.0); Mean Corpuscular Hemoglobin 33.9 pg (28.0-32.0); Mean Corpuscular Hgb Conc. 33.7 g/dL (32.0-36.0); Mean Corpuscular Volume 100.6 fL (80.0-100.0); Monocytes # (auto) 0.6 10 ^3/uL (0-1.3); Neutrophils # (auto) 2.7 10 ^3/uL (1.6-8.6); Neutrophils % (auto) 67.9 % (37.0-80.0); Nucleated Red Blood Cells % 0.3 %; Red Blood Cells 4.08 10^6/uL (4.0-5.20); Red Cell Distribution Width 12.5 % (11.8-14.3)
[2022-03-22 11:04] LABS: BUN/Creatinine Ratio 14.9; Bilirubin, Total 0.4 mg/dL (0.2-1.0); Total Protein 7.5 g/dL (6.4-8.2)
[2022-03-22 12:50] LABS: Urine Bacteria FEW /hpf (None Seen); Urine Blood Negative /uL (Negative); Urine Specific Gravity 1.028 (1.001-1.035); Urine WBC 4 /hpf (0 - 5)
[2022-03-22] MEDS ORDERED: cefTRIAXone 1GM/50ML D5W 50 ML IV ONE (14:45)
[2022-03-22] MEDS ORDERED: ONDANSETRON HCL 4 MG/2 ML VIAL IV PRN (16:45)
[2022-03-22] MEDS ORDERED: DEXTROSE (50%) 50ML SYRG IV PRN (16:45)
[2022-03-22] MEDS ORDERED: DOCUSATE SOD 100 MG CAP PO PRN (16:45)
[2022-03-22] MEDS ORDERED: INSULIN LISPRO (HUMAN) 100 UNITS/ML ML SC ONE (16:45)
[2022-03-22] MEDS ORDERED: SODIUM CHLORIDE 0.9% 2,000 ML IV ONE (16:45)
[2022-03-22] MEDS ORDERED: SODIUM CHLORIDE 0.9% 1,000 ML IV ONE (16:45)
[2022-03-22] MEDS: ACCU-CHEK COMFORT CURVE STRIP VI SCH ×2 (17:55→22:26)
[2022-03-22] MEDS: InsuLIN REG 1unit/0.01ml Soln (100units/ml) SC SCH ×2 (17:57→22:26)
[2022-03-22] MEDS: HYDROmorphone HCL 2 MG/ML VL/or syr IV PRN ×2 (18:13→21:21)
[2022-03-22 22:00] VITALS: BP 123/91
[2022-03-23] VITALS (7 sets, daily range): BP systolic 101–125; BP diastolic 54–91
[2022-03-23] MEDS: HYDROmorphone HCL 2 MG/ML VL/or syr IV PRN ×3 (01:59→11:36)
[2022-03-23] MEDS ORDERED: guaiFENesin-DM 100/10mg/5ml SYR PO PRN (05:30)
[2022-03-23] MEDS: ACCU-CHEK COMFORT CURVE STRIP VI SCH ×4 (06:12→22:01)
[2022-03-23] MEDS: InsuLIN REG 1unit/0.01ml Soln (100units/ml) SC SCH ×4 (06:15→21:56)
[2022-03-23 08:09] LABS: INR 0.92 (0.9-1.15)
[2022-03-23 08:11] LABS: Albumin 3.2 g/dL (3.4-5.0); Calcium 8.1 mg/dL (8.5-10.1); Potassium 3.8 mmol/L (3.5-5.1)
[2022-03-23 08:12] LABS: % Iron Saturation 15.6 % (15-50)
[2022-03-23 08:15] LABS: BUN/Creatinine Ratio 18.6; Bilirubin, Total 0.2 mg/dL (0.2-1.0); Pre Albumin 20.7 mg/dL (20.0-40.0); Total Protein 6.4 g/dL (6.4-8.2)
[2022-03-23 09:56] LABS: Basophils # (auto) 0 10 ^3/uL (0-0.2); Eosinophils # (auto) 0 10 ^3/uL (0-0.8); Eosinophils % (auto) 0.8 % (0.0-7.0); Mean Corpuscular Volume 100.5 fL (80.0-100.0); Nucleated Red Blood Cells % 0.2 %; Red Blood Cells 3.43 10^6/uL (4.0-5.20); White Blood Cell 3.1 10^3/uL (4.4-10.8)
[2022-03-23 09:58] LABS: Basophils % (auto) 1.2 % (0.0-2.0); Hematocrit 34.4 % (36.0-46.0); Hemoglobin 11.7 g/dL (12.2-16.2); Lymphocytes % (auto) 30.9 % (10.0-50.0); Mean Corpuscular Hgb Conc. 33.9 g/dL (32.0-36.0); Monocytes # (auto) 0.5 10 ^3/uL (0-1.3); Monocytes % (auto) 17.2 % (0.0-12.0); Neutrophils # (auto) 1.6 10 ^3/uL (1.6-8.6); Neutrophils % (auto) 49.9 % (37.0-80.0); Red Cell Distribution Width 12.4 % (11.8-14.3)
[2022-03-23] MEDS: PANTOPRAZOLE 40 MG/10 ML VIAL INJ IV SCH (10:44)
[2022-03-23] MEDS: NYSTATIN TOPICAL POWDER 15GM TOP SCH ×2 (10:45→22:00)
[2022-03-23] MEDS: FLUCONAZOLE 100 MG TAB PO SCH (10:45)
[2022-03-23] MEDS: ENOXAPARIN SOD 40 MG/0.4 ML SYRINGE SC SCH (10:45)
[2022-03-23] MEDS ORDERED: CEFTRIAXONE SODIUM 2 GM in D5W 5% 50 ML IV ONE (12:15)
[2022-03-23 18:57] LABS: Ferritin 158.3 ng/mL (10-322)
[2022-03-23] MEDS: INSULIN LANTUS (GLARGINE) 1 /0.01ml (100units/ml) SC SCH (21:56)
[2022-03-23] MEDS ORDERED: TEMAZEPAM 15 MG CAP PO SCH (22:00)
[2022-03-24] MEDS: HYDROmorphone HCL 2 MG/ML VL/or syr IV PRN ×3 (01:39→11:50)
[2022-03-24 06:15] VITALS: BP 116/73
[2022-03-24] MEDS: ACCU-CHEK COMFORT CURVE STRIP VI SCH ×4 (06:31→21:47)
[2022-03-24] MEDS: InsuLIN REG 1unit/0.01ml Soln (100units/ml) SC SCH ×4 (06:36→22:01)
[2022-03-24 07:39] LABS: Basophils # (auto) 0 10 ^3/uL (0-0.2); Basophils % (auto) 1.3 % (0.0-2.0); Eosinophils # (auto) 0.1 10 ^3/uL (0-0.8); Hematocrit 35.8 % (36.0-46.0); Hemoglobin 12.1 g/dL (12.2-16.2); Lymphocytes # (auto) 1.4 10 ^3/uL (0.4-5.4); Lymphocytes % (auto) 46.5 % (10.0-50.0); Mean Corpuscular Hemoglobin 33.8 pg (28.0-32.0); Mean Corpuscular Hgb Conc. 33.8 g/dL (32.0-36.0); Monocytes # (auto) 0.3 10 ^3/uL (0-1.3); Monocytes % (auto) 10.4 % (0.0-12.0); Neutrophils # (auto) 1.2 10 ^3/uL (1.6-8.6); Neutrophils % (auto) 39.8 % (37.0-80.0); Nucleated Red Blood Cells % 0.1 %; Red Blood Cells 3.58 10^6/uL (4.0-5.20); Red Cell Distribution Width 12.5 % (11.8-14.3); White Blood Cell 3.1 10^3/uL (4.4-10.8)
[2022-03-24 07:46] LABS: Calcium 8.4 mg/dL (8.5-10.1); Potassium 4.1 mmol/L (3.5-5.1)
[2022-03-24 07:48] LABS: BUN/Creatinine Ratio 18.4
[2022-03-24 08:00] VITALS: BP 123/84
[2022-03-24 09:00] VITALS: BP 123/84
[2022-03-24] MEDS: cefTRIAXone 1GM/50ML D5W 50 ML IV SCH (09:15)
[2022-03-24] MEDS: NYSTATIN TOPICAL POWDER 15GM TOP SCH ×2 (09:15→21:48)
[2022-03-24] MEDS: ENOXAPARIN SOD 40 MG/0.4 ML SYRINGE SC SCH (09:15)
[2022-03-24] MEDS: PANTOPRAZOLE 40 MG/10 ML VIAL INJ IV SCH (09:15)
[2022-03-24] MEDS: FLUCONAZOLE 100 MG TAB PO SCH (09:17)
[2022-03-24] MEDS ORDERED: ZOLPIDEM TARTRATE 5 MG TAB PO PRN (12:15)
[2022-03-24] MEDS ORDERED: MULTIPLE VITAMIN TAB PO ONE (12:15)
[2022-03-24] MEDS ORDERED: ZINC SULFATE 220mg CAP or TAB PO ONE (12:15)
[2022-03-24] MEDS ORDERED: CHOLECALCIFEROL (VITD3) 2,000 UNIT CAP/TAB PO ONE (12:15)
[2022-03-24 13:00] VITALS: BP 112/69
[2022-03-24 17:00] VITALS: BP_SYST 117; BP_SYST 119; BP_DIAS 70; BP_DIAS 74
[2022-03-24] MEDS ORDERED: HYDROmorphone HCL 2 MG/ML VL/or syr IV PRN (17:15)
[2022-03-24] MEDS: ASCORBIC ACID 500 MG TAB PO SCH (20:03)
[2022-03-24] MEDS: MORPHINE SULF 30 mg ER tab PO SCH (20:03)
[2022-03-24] MEDS: oxyCODONE HCL 5MG TAB PO PRN (21:48)
[2022-03-24 22:00] VITALS: BP 109/69
[2022-03-24] MEDS: INSULIN LANTUS (GLARGINE) 1 /0.01ml (100units/ml) SC SCH (22:00)
[2022-03-25 05:00] VITALS: BP 118/71
[2022-03-25] MEDS: ACCU-CHEK COMFORT CURVE STRIP VI SCH ×4 (07:14→22:30)
[2022-03-25] MEDS: MORPHINE SULF 30 mg ER tab PO SCH ×3 (07:14→22:30)
[2022-03-25] MEDS: cefTRIAXone 1GM/50ML D5W 50 ML IV SCH (07:16)
[2022-03-25] MEDS: InsuLIN REG 1unit/0.01ml Soln (100units/ml) SC SCH ×4 (07:16→22:34)
[2022-03-25 07:30] LABS: Basophils # (auto) 0 10 ^3/uL (0-0.2); Basophils % (auto) 0.8 % (0.0-2.0); Eosinophils # (auto) 0 10 ^3/uL (0-0.8); Eosinophils % (auto) 1.2 % (0.0-7.0); Hematocrit 35.4 % (36.0-46.0); Hemoglobin 11.9 g/dL (12.2-16.2); Lymphocytes % (auto) 30.9 % (10.0-50.0); Mean Corpuscular Hemoglobin 33.6 pg (28.0-32.0); Mean Corpuscular Hgb Conc. 33.7 g/dL (32.0-36.0); Mean Corpuscular Volume 99.5 fL (80.0-100.0); Monocytes # (auto) 0.3 10 ^3/uL (0-1.3); Monocytes % (auto) 8.3 % (0.0-12.0); Neutrophils # (auto) 1.9 10 ^3/uL (1.6-8.6); Neutrophils % (auto) 58.8 % (37.0-80.0); Potassium 4.1 mmol/L (3.5-5.1); Red Blood Cells 3.56 10^6/uL (4.0-5.20); Red Cell Distribution Width 12.5 % (11.8-14.3); White Blood Cell 3.2 10^3/uL (4.4-10.8)
[2022-03-25 07:35] LABS: Calcium 8.6 mg/dL (8.5-10.1)
[2022-03-25 08:17] LABS: Folate (Folic Acid) > 24.00 ng/mL (5.38-24)
[2022-03-25 09:30] VITALS: BP 108/65
[2022-03-25] MEDS ORDERED: CHOLECALCIFEROL (VITD3) 2,000 UNIT CAP/TAB PO SCH (10:00)
[2022-03-25] MEDS: PANTOPRAZOLE 40 MG/10 ML VIAL INJ IV SCH (11:22)
[2022-03-25] MEDS: FLUCONAZOLE 100 MG TAB PO SCH (11:22)
[2022-03-25] MEDS: ZINC SULFATE 220mg CAP or TAB PO SCH (11:22)
[2022-03-25] MEDS: ASCORBIC ACID 500 MG TAB PO SCH ×2 (11:23→22:30)
[2022-03-25] MEDS: MULTIPLE VITAMIN TAB PO SCH (11:23)
[2022-03-25] MEDS: NYSTATIN TOPICAL POWDER 15GM TOP SCH ×2 (11:24→22:30)
[2022-03-25] MEDS: ENOXAPARIN SOD 40 MG/0.4 ML SYRINGE SC SCH (11:24)
[2022-03-25 16:30] VITALS: BP 105/61
[2022-03-25] MEDS ORDERED: ERGOCALCIFEROL 50,000 UNIT(1.25MG) CAP PO SCH (20:45)
[2022-03-25] MEDS: INSULIN LANTUS (GLARGINE) 1 /0.01ml (100units/ml) SC SCH (22:33)
[2022-03-26 00:11] VITALS: BP 116/68
[2022-03-26 05:15] VITALS: BP 115/76
[2022-03-26 05:43] VITALS: BP 115/76
[2022-03-26] MEDS: MORPHINE SULF 30 mg ER tab PO SCH (05:58)
[2022-03-26] MEDS: ACCU-CHEK COMFORT CURVE STRIP VI SCH ×2 (05:59→11:39)
[2022-03-26] MEDS: InsuLIN REG 1unit/0.01ml Soln (100units/ml) SC SCH ×2 (06:05→11:48)
[2022-03-26] MEDS: oxyCODONE HCL 5MG TAB PO PRN (06:41)
[2022-03-26 07:05] LABS: Basophils # (auto) 0 10 ^3/uL (0-0.2); Basophils % (auto) 0.7 % (0.0-2.0); Eosinophils # (auto) 0.1 10 ^3/uL (0-0.8); Eosinophils % (auto) 2.5 % (0.0-7.0); Hemoglobin 11.9 g/dL (12.2-16.2); Lymphocytes # (auto) 1.3 10 ^3/uL (0.4-5.4); Lymphocytes % (auto) 39.3 % (10.0-50.0); Mean Corpuscular Hemoglobin 33.5 pg (28.0-32.0); Mean Corpuscular Volume 98.5 fL (80.0-100.0); Monocytes # (auto) 0.3 10 ^3/uL (0-1.3); Monocytes % (auto) 8.8 % (0.0-12.0); Neutrophils # (auto) 1.6 10 ^3/uL (1.6-8.6); Neutrophils % (auto) 48.7 % (37.0-80.0); Nucleated Red Blood Cells % 0.2 %; Red Blood Cells 3.55 10^6/uL (4.0-5.20); Red Cell Distribution Width 12.5 % (11.8-14.3); White Blood Cell 3.2 10^3/uL (4.4-10.8)
[2022-03-26 07:38] LABS: Potassium 3.3 mmol/L (3.5-5.1)
[2022-03-26 07:51] LABS: BUN/Creatinine Ratio 16.7; Calcium 8.9 mg/dL (8.5-10.1)
[2022-03-26 08:00] VITALS: BP 105/69
[2022-03-26 09:00] VITALS: BP 105/69
[2022-03-26] MEDS: cefTRIAXone 1GM/50ML D5W 50 ML IV SCH (09:11)
[2022-03-26] MEDS: NYSTATIN TOPICAL POWDER 15GM TOP SCH (10:00)
[2022-03-26] MEDS: ASCORBIC ACID 500 MG TAB PO SCH (10:00)
[2022-03-26] MEDS: MULTIPLE VITAMIN TAB PO SCH (10:01)
[2022-03-26] MEDS: FLUCONAZOLE 100 MG TAB PO SCH (10:01)
[2022-03-26] MEDS: ZINC SULFATE 220mg CAP or TAB PO SCH (10:01)
[2022-03-26] MEDS: PANTOPRAZOLE 40 MG/10 ML VIAL INJ IV SCH (10:01)
[2022-03-26] MEDS: ENOXAPARIN SOD 40 MG/0.4 ML SYRINGE SC SCH (10:02)
[2022-03-26] MEDS ORDERED: POTASSIUM CHL 20 Meq TABLET PO ONE (11:15)
[2022-03-26] MEDS ORDERED: INSU1INJ19 SC (12:56)
[2022-03-26] MEDS ORDERED: METF-372 PO (12:56)
[2022-03-26] MEDS ORDERED: NYST150P2 XX (12:56)
[2022-03-26] MEDS ORDERED: ERGO1CAP23 PO (12:56)
[2022-03-26] MEDS ORDERED: FLUC150T38 PO (12:56)
[2022-03-26] MEDS ORDERED: CEFD300C2 PO (12:58)
[2022-03-26 13:00] VITALS: BP 117/73
== END 2022-03-26 13:33 | disposition home health service (06) | DRG 689 ==
LOC: ER 09:45 → TELE 16:45 → TELE-WESTW 23:10
PROVIDERS: ADMIT Nurse Practitioner Family; ATTEND Internal Medicine
DX: N30.00 Acute cystitis without hematuria (principal); E11.10 Type 2 diabetes mellitus with ketoacidosis without coma; J12.82 Pneumonia due to coronavirus disease 2019; U07.1 COVID-19; E11.65 Type 2 diabetes mellitus with hyperglycemia; E78.5 Hyperlipidemia, unspecified; I10 Essential (primary) hypertension; N89.8 Other specified noninflammatory disorders of vagina; R55 Syncope and collapse; R00.0 Tachycardia, unspecified; I25.10 Atherosclerotic heart disease of native coronary artery without angina pectoris; J45.909 Unspecified asthma, uncomplicated; E66.9 Obesity, unspecified; E55.9 Vitamin D deficiency, unspecified; G89.29 Other chronic pain; E78.00 Pure hypercholesterolemia, unspecified; Z92.21 Personal history of antineoplastic chemotherapy; Z79.899 Other long term (current) drug therapy; Z79.4 Long term (current) use of insulin; Z88.8 Allergy status to other drugs, medicaments and biological substances; Z79.84 Long term (current) use of oral hypoglycemic drugs; Z90.710 Acquired absence of both cervix and uterus; Z90.49 Acquired absence of other specified parts of digestive tract; Z88.6 Allergy status to analgesic agent; Z86.73 Personal history of transient ischemic attack (TIA), and cerebral infarction without residual deficits; Z85.05 Personal history of malignant neoplasm of liver; Z83.3 Family history of diabetes mellitus; Z85.038 Personal history of other malignant neoplasm of large intestine; Z82.49 Family history of ischemic heart disease and other diseases of the circulatory system; I25.2 Old myocardial infarction; Z68.26 Body mass index [BMI] 26.0-26.9, adult
CPT/HCPCS: 36415; 36600; 70450; 71046; 74176; 76536; 80048; 80053; 81001; 82010; 82040; 82105; 82140; 82306; 82378; 82607; 82728; 82746; 82805; 82962; 83036; 83540; 83550; 83605; 83615; 83735; 83880; 84439; 84443; 84484; 85025; 85610; 87040; 87426; 87804; 93005; 93306; 93886; 96361; 96365; 96372; 97163; C9113; G0378; J0696; J1815; J2405; J7060

== ENCOUNTER 2022-11-19 14:14 | Emergency (ER) | payer MEDICARE, MEDICAID ==
[~2022-11-19] VITALS: Ht 177.8 cm; Wt 78.9 kg
[~2022-11-19 14:14] MED LIST changes: +CEFD300C2 PO; +ERGO1CAP23 PO; -FERR-20 PO; +FERR325T24 PO; +NYST150P2 XX; -OXYC-902 PO; +OXYC30TA PO; -PROC10TA2 PO; +PROC10TA6 PO; +SERT-206 PO; -SERT50TA19 PO
[2022-11-19 14:45] VITALS: PULSE 90; RESP 18; O2SAT 97
[2022-11-19] MEDS ORDERED: ONDANSETRON HCL 4 MG/2 ML VIAL IV ONE (14:45)
[2022-11-19] MEDS ORDERED: SODIUM CHLORIDE 0.9% 1,000 ML IVB ONE (14:45)
[2022-11-19] MEDS ORDERED: InsuLIN REG 1unit/0.01ml Soln (100units/ml) IV ONE (14:45)
[2022-11-19] MEDS ORDERED: MORPHINE SULFATE 4 MG/ML SYR/VIAL IV ONE ×2 (14:45→16:15)
[2022-11-19 15:27] LABS: Basophils # (auto) 0.1 10 ^3/uL (0-0.2); Eosinophils # (auto) 0.2 10 ^3/uL (0-0.8); Eosinophils % (auto) 3.3 % (0.0-7.0); Hemoglobin 14.2 g/dL (12.2-16.2); Lymphocytes # (auto) 1.6 10 ^3/uL (0.4-5.4); Lymphocytes % (auto) 29.4 % (10.0-50.0); Mean Corpuscular Hemoglobin 32.7 pg (28.0-32.0); Mean Corpuscular Hgb Conc. 33.7 g/dL (32.0-36.0); Mean Corpuscular Volume 97.1 fL (80.0-100.0); Monocytes # (auto) 0.3 10 ^3/uL (0-1.3); Monocytes % (auto) 5.1 % (0.0-12.0); Neutrophils # (auto) 3.3 10 ^3/uL (1.6-8.6); Neutrophils % (auto) 61.2 % (37.0-80.0); Nucleated Red Blood Cells % 0.2 %; Red Blood Cells 4.33 10^6/uL (4.0-5.20); Red Cell Distribution Width 12.5 % (11.8-14.3); White Blood Cell 5.4 10^3/uL (4.4-10.8)
[2022-11-19 16:00] VITALS: TEMP 97.6
[2022-11-19 16:26] LABS: Urine Bacteria NONE SEEN /hpf (None Seen); Urine Blood Negative /uL (Negative); Urine Clarity Clear (Clear); Urine Color Colorless (Yellow); Urine Protein, UAD Negative (Negative); Urine Urobilinogen Normal (Negative); Urine WBC 9 /hpf (0 - 5); Urine pH 5.5 (5.0-8.0)
[2022-11-19 17:43] LABS: Sodium 138 mmol/L (136-145)
[2022-11-19 17:45] LABS: Anion Gap 5.9 (5-15); Carbon Dioxide 22.1 mmol/L (20-30)
[2022-11-19 17:46] LABS: Calcium 7.5 mg/dL (8.7-10.4)
[2022-11-19 17:47] LABS: Potassium 3.1 mmol/L (3.5-5.1)
[2022-11-19 17:50] LABS: Glucose 316 mg/dL (74-106)
[2022-11-19 17:51] LABS: Alkaline Phosphatase 87 U/L (46-116); Chloride 110 mmol/L (98-107)
[2022-11-19 17:52] LABS: Aspartate Aminotransferase < 8 U/L (13-40)
[2022-11-19 17:53] LABS: Bilirubin, Total 0.2 mg/dL (0.2-1.0); Total Protein 5.2 g/dL (5.7-8.2)
[2022-11-19 18:00] VITALS: BP 135/64; PULSE 91; RESP 16; O2SAT 98
[2022-11-19 18:02] LABS: Alanine Aminotransferase 14 U/L (7-40); Albumin 3.3 g/dL (3.2-4.8); BUN/Creatinine Ratio 17.5 (10.0-20.0); Blood Urea Nitrogen 11 mg/dL (9-23); Lipase 74 U/L (12-53)
[2022-11-19] MEDS ORDERED: InsuLIN REG 1unit/0.01ml Soln (100units/ml) SC ONE (18:15)
[2022-11-19] MEDS ORDERED: POTASSIUM CHL 20 Meq TABLET PO ONE (19:15)
== END 2022-11-19 19:35 | disposition home or self-care (01) ==
LOC: ER 14:14
DX: K76.9 Liver disease, unspecified (principal); E11.65 Type 2 diabetes mellitus with hyperglycemia; E87.6 Hypokalemia; J45.909 Unspecified asthma, uncomplicated; E78.5 Hyperlipidemia, unspecified; I10 Essential (primary) hypertension; F12.90 Cannabis use, unspecified, uncomplicated; Z90.49 Acquired absence of other specified parts of digestive tract; Z90.89 Acquired absence of other organs; Z90.710 Acquired absence of both cervix and uterus; Z79.899 Other long term (current) drug therapy; Z86.73 Personal history of transient ischemic attack (TIA), and cerebral infarction without residual deficits; Z79.82 Long term (current) use of aspirin; Z79.84 Long term (current) use of oral hypoglycemic drugs
CPT/HCPCS: 36415; 74177; 80053; 81001; 82962; 83690; 85025; 93005; 96361; 96372; 96374; 96375; 96376; 99285; J1815; J2270; J2405; J7030

== ENCOUNTER 2023-04-05 09:17 | Emergency (ER) | payer MEDICARE, MEDICAID ==
[~2023-04-05] VITALS: Ht 162.6 cm; Wt 90.9 kg
[2023-04-05 09:50] VITALS: PULSE 96; O2SAT 97
[2023-04-05 10:21] LABS: Basophils # (auto) 0.1 10 ^3/uL (0-0.2); Basophils % (auto) 1.2 % (0.0-2.0); Eosinophils # (auto) 0.1 10 ^3/uL (0-0.8); Hemoglobin 14.1 g/dL (12.2-16.2); Lymphocytes # (auto) 1.6 10 ^3/uL (0.4-5.4); Lymphocytes % (auto) 25.2 % (10.0-50.0); Mean Corpuscular Hemoglobin 32.2 pg (28.0-32.0); Mean Corpuscular Hgb Conc. 33.4 g/dL (32.0-36.0); Mean Corpuscular Volume 96.3 fL (80.0-100.0); Monocytes # (auto) 0.5 10 ^3/uL (0-1.3); Monocytes % (auto) 8.4 % (0.0-12.0); Neutrophils # (auto) 4.2 10 ^3/uL (1.6-8.6); Neutrophils % (auto) 64.2 % (37.0-80.0); Nucleated Red Blood Cells % 0.3 %; Red Blood Cells 4.37 10^6/uL (4.0-5.20); Red Cell Distribution Width 12.6 % (11.8-14.3); White Blood Cell 6.5 10^3/uL (4.4-10.8)
[2023-04-05] MEDS ORDERED: MORPHINE SULFATE INJ 2 MG/ml SYRG IV ONE (10:30)
[2023-04-05] MEDS ORDERED: PROCHLORPERAZINE EDISYLATE 5 MG/ML 2ML VIAL IV ONE (10:30)
[2023-04-05] MEDS ORDERED: LACTATED RINGER'S 1,000 ML IV ONE (10:30)
[2023-04-05 10:40] LABS: Alkaline Phosphatase 90 U/L (46-116); Anion Gap 11 (5-15); Aspartate Aminotransferase 38 U/L (13-40); Bilirubin, Total 0.4 mg/dL (0.2-1.0); Calcium 8.8 mg/dL (8.5-10.1); Carbon Dioxide 21 mmol/L (20-30); Chloride 104 mmol/L (98-107); Glucose 367 mg/dL (74-106); Sodium 136 mmol/L (136-145)
[2023-04-05 10:41] LABS: Total Protein 6.5 g/dL (5.7-8.2)
[2023-04-05 12:59] LABS: Urine Epithelial Cast None Seen /hpf (<5)
[2023-04-05 13:00] VITALS: TEMP 97.6
[2023-04-05 13:12] LABS: Urine Bacteria NONE SEEN /hpf (None Seen); Urine Blood Negative /uL (Negative); Urine Clarity Clear (Clear); Urine Protein, UAD Negative (Negative); Urine Urobilinogen Normal (Negative); Urine WBC 2 /hpf (0 - 5); Urine pH 5.5 (5.0-8.0)
[2023-04-05 13:13] LABS: Urine Color STRAW (Yellow)
[2023-04-05 13:45] LABS: Alanine Aminotransferase 12 U/L (7-40); Albumin 4.1 g/dL (3.2-4.8); BUN/Creatinine Ratio 7.4 (10.0-20.0); Blood Urea Nitrogen 6 mg/dL (9-23); Potassium 4.3 mmol/L (3.5-5.1)
[2023-04-05 14:12] LABS: Chloride 106 mmol/L (98-107); Potassium 4.2 mmol/L (3.5-5.1); Sodium 138 mmol/L (136-145)
[2023-04-05 14:13] LABS: Anion Gap 9 (5-15); Carbon Dioxide 23 mmol/L (20-30)
[2023-04-05 14:14] LABS: Calcium 9.5 mg/dL (8.5-10.1)
[2023-04-05 14:18] LABS: BUN/Creatinine Ratio 10.5 (10.0-20.0); Blood Urea Nitrogen 8 mg/dL (9-23); Glucose 271 mg/dL (74-106)
[2023-04-05 15:47] LABS: COVID19 ANTIGEN SOFIA FIA NEGATIVE (NEGATIVE); Rapid Influenza A Negative (Negative); Rapid Influenza B Negative (Negative)
[2023-04-05] MEDS ORDERED: PROC10TA6 PO (16:16)
[2023-04-05 16:23] VITALS: BP 129/68; PULSE 98; RESP 12; O2SAT 97
== END 2023-04-05 16:54 | disposition home or self-care (01) ==
LOC: ER 09:17 → EDBD 09:17 → EDUNIT# 09:17 → ER 16:42
DX: R55 Syncope and collapse (principal); E11.65 Type 2 diabetes mellitus with hyperglycemia; I10 Essential (primary) hypertension; E78.5 Hyperlipidemia, unspecified; J45.909 Unspecified asthma, uncomplicated; F17.210 Nicotine dependence, cigarettes, uncomplicated; Z86.73 Personal history of transient ischemic attack (TIA), and cerebral infarction without residual deficits; Z90.49 Acquired absence of other specified parts of digestive tract; Z90.89 Acquired absence of other organs; Z90.710 Acquired absence of both cervix and uterus; Z79.82 Long term (current) use of aspirin; Z79.4 Long term (current) use of insulin; Z79.899 Other long term (current) drug therapy; Z88.8 Allergy status to other drugs, medicaments and biological substances; Z20.822 Contact with and (suspected) exposure to COVID-19
CPT/HCPCS: 36415; 70450; 71045; 80048; 80053; 81001; 82010; 83605; 84484; 85025; 87040; 87426; 87804; 93005; 96361; 96374; 96375; 99285; J0780; J2270; J7030

== ENCOUNTER → 2023-09-10 | Outpatient (CLI) | payer MEDICARE, MEDICAID ==
[2023-09-10 10:38] LABS: Basophils # (auto) 0 10 ^3/uL (0-0.2); Basophils % (auto) 0.9 % (0.0-2.0); Eosinophils # (auto) 0.1 10 ^3/uL (0-0.8); Hematocrit 44.6 % (36.0-46.0); Hemoglobin 15.3 g/dL (12.2-16.2); Lymphocytes # (auto) 1.6 10 ^3/uL (0.4-5.4); Lymphocytes % (auto) 31.3 % (10.0-50.0); Mean Corpuscular Hemoglobin 33.2 pg (28.0-32.0); Mean Corpuscular Hgb Conc. 34.3 g/dL (32.0-36.0); Mean Corpuscular Volume 96.9 fL (80.0-100.0); Monocytes # (auto) 0.3 10 ^3/uL (0-1.3); Monocytes % (auto) 5.5 % (0.0-12.0); Neutrophils % (auto) 60.3 % (37.0-80.0); Nucleated Red Blood Cells % 0.1 %; Red Cell Distribution Width 12.7 % (11.8-14.3)
[2023-09-10 11:03] LABS: Alanine Aminotransferase 23 U/L (7-40); Albumin 4.5 g/dL (3.2-4.8); Alkaline Phosphatase 115 U/L (46-116); Anion Gap 8 (5-15); Aspartate Aminotransferase 9 U/L (13-40); BUN/Creatinine Ratio 27.7 (10.0-20.0); Blood Urea Nitrogen 31 mg/dL (9-23); Calcium 9.9 mg/dL (8.5-10.1); Carbon Dioxide 22 mmol/L (20-30); Chloride 99 mmol/L (98-107); Cholesterol 252 mg/dL (< 200); HDL Cholesterol 42 mg/dL (40-59); Potassium 4.7 mmol/L (3.5-5.1); Sodium 129 mmol/L (136-145); Triglycerides 443 mg/dL (< 150)
[2023-09-10 11:04] LABS: Bilirubin, Total 0.4 mg/dL (0.2-1.0); Total Protein 7.2 g/dL (5.7-8.2)
[2023-09-10 11:05] LABS: Carcinoembryonic Antigen 2.21 ng/mL (<=5.0)
[2023-09-10 11:12] LABS: Glucose 655 mg/dL (74-106)
[2023-09-11 08:06] LABS: AFP Serum Tumor Marker <1.8 ng/mL (0.0-9.2)
== END | disposition home or self-care (01) ==
LOC: LAB 10:19
PROVIDERS: ATTEND Internal Medicine
DX: C18.8 Malignant neoplasm of overlapping sites of colon (principal); E11.42 Type 2 diabetes mellitus with diabetic polyneuropathy; E53.8 Deficiency of other specified B group vitamins; E55.9 Vitamin D deficiency, unspecified; Z85.05 Personal history of malignant neoplasm of liver
CPT/HCPCS: 36415; 80053; 80061; 82105; 82378; 82607; 83036; 85025

== ENCOUNTER → 2023-10-29 | Outpatient (CLI) | payer MEDICARE, MEDICAID | END | disposition home or self-care (01) | LOC: LAB 11:10 | PROVIDERS: ATTEND Internal Medicine Gastroenterology | DX: C18.9 Malignant neoplasm of colon, unspecified (principal) | CPT/HCPCS: 82378 ==

== ENCOUNTER 2024-03-08 09:43 | Inpatient (IN) | payer MEDICARE, MEDICAID ==
[~2024-03-08] VITALS: Ht 177.8 cm; Wt 78.3 kg
[2024-03-08 10:03] VITALS: RESP 18
[2024-03-08] MEDS: SODIUM CHLORIDE 0.9% 500 ML IV ONE (10:39)
[2024-03-08] MEDS: ONDANSETRON HCL 4 MG/2 ML VIAL IV ONE (10:39)
[2024-03-08] MEDS: MORPHINE SULFATE 4 MG/ML SYR/VIAL IV ONE (10:40)
[2024-03-08 10:43] VITALS: PULSE 112; RESP 18; O2SAT 99
--- NOTE | 2024-03-08 10:51 | ED.PDOC ---
History of Present Illness HPI Comments 58 y/o F, with a Hx of liver CA untreated, asthma, CVA, DM, HLD, HTN, appendectomy, tonsillectomy, cholecystectomy, hysterectomy, and polysubstance abuse, is BIBA for c/o generalized bodyaches, nausea, vomiting, diarrhea, and headache for the past 4x days and multiple syncopal episodes, today. Patient endorses on "passing out" 3x today following having aforementioned symptoms persisting since initial onset. She states on no sick contact at home. She also informs on stopping her chemotherapy for her liver CA on her own choice for over a year, due to treatment "making [her] sick." She reports no additional relevant or pertinent Hx, such as recent injuries, travel, or spoiled food intake. She denies having any abdominal pain, fever, chills, urinary symptoms, or other associated symptoms or modifiers at this time. Chief Complaint: Flu like Time Seen by MD: 10:10 Primary Care Provider: TRACI Reviewed Notes: Nurses Notes, Medications, Allergies Allergies: Coded Allergies: Ibuprofen (Verified Allergy, Severe, 06/11/20) Home Meds Active Scripts Prochlorperazine Maleate (Compazine) 10 Mg Tb, 1 TAB PO Q6HR PRN, #30 TAB 0 Refills Prov:TOÑO MORRISSEY MD 04/05/23 Cefdinir (Cefdinir) 300 Mg Cap, 1 CAP PO BID, #14 CAP Prov:NARESH AVILES MD 03/26/22 Nystatin (Nystatin) 1 Pow Pow, 1 POW XX BID for 14 Days, #14 POW Prov:NARESH AVILES MD 03/26/22 Ergocalciferol (VITAMIN D 82885 UNIT) 50,000 [place], [address] UNIT PO Q7D for 12 Days, #12 CAP Prov:NARESH AVILES MD 03/26/22 Fluconazole (Diflucan) 150 Mg Tab, 1 TAB PO BID for 5 Days, #10 TAB 1 Refill Prov:NARESH AVILES MD 03/26/22 Insulin Glargine (Basaglar Kwikpen) 100 Unit/Ml Inj, 50 UNIT SC HS for 30 Days, #30 INJ Prov:NARESH AVILES MD 03/26/22 Metformin Hydrochloride (Metformin Hcl) 1,000 Mg Tab, 1 TAB PO BID for 30 Days, #60 TAB 5 Refills Prov:NARESH AVILES MD 03/26/22 Tramadol Hcl (Ultram) 50 Mg Tab, 1 TAB PO TID, #14 TAB Prov:MARCOS WATERS 01/25/22 Sulfamethoxazole W/Trimethopri (Bactrim Ds Tablet) 1 Tab Tb, 1 TAB PO BID for 10 Days, #20 TAB Prov:MARISOL SAEED NP 01/23/22 Reported Medications Sertraline Hcl (Sertraline Hcl) 50 Mg Tab, 50 MG PO DAILY 05/16/20 Nystatin (Mycostatin) 1 Applic Ap, 1 APPLIC TOP BID 05/16/20 Promethazine W/Codeine (Promethazine/Codeine) 1 Syp Syp, 5 ML PO Q4HP PRN for COUGH 05/16/20 Temazepam (Restoril) 15 Mg Cp, 1 CAP PO QPM, #30 CAP 1 Refill 05/16/20 Lactulose (Lactulose) 10 Gm/15 Ml Linda, 30 ML PO DAILY 05/16/20 Megestrol Acetate (Appetite) (Megestrol Acetate) Unknown Strength Kelly, PO DAILY, ML 40 MG/ML SUSP, TAKE 5 ML PO BID 05/16/20 Prochlorperazine Maleate (Compazine) 10 Mg Tb, 1 TAB PO Q4-6HR PRN for NAUSEA / VOMITING, #30 TAB 3 Refills 05/16/20 Ondansetron HCl (Ondansetron Hydrochloride) 8 Mg Tab, 8 MG PO Q8HP PRN for NAUSEA / VOMITING 05/16/20 Insulin NPH (Human) (Isophane) (Novolin N Flexpen) 100 Unit/Ml Inj, 12 UNIT SC TID 04/21/20 Atorvastatin Calcium (ATORVASTATIN CALCIUM) 40 Mg Tab, 1 TAB PO DAILY 04/21/20 Fenofibrate (FENOFIBRATE) 145 Mg Tab, 1 TAB PO DAILY 04/21/20 Metoprolol Succinate (Metoprolol Succinate Er) 25 Mg Tab, 25 MG PO BID 04/21/20 Empagliflozin (Jardiance) 10 Mg Tab, 10 MG PO QAM 04/21/20 Aspirin (ASPIRIN 81) 81 Mg Tab, 81 MG PO DAILY 04/21/20 Morphine Sulfate (Morphine Sulfate Cr) 30 Mg Tab, 1 TAB PO Q12H 04/21/20 Oxycodone HCl (Oxycodone Hydrochloride) 30 Mg Tab, 30 MG PO QIDP PRN for PAIN 04/21/20 Ferrous Sulfate (Ferrous Sulfate) 325 Mg Tab, 325 MG PO Q 2 DAYS 12/24/18 Gabapentin (Neurontin) 300 Mg Cap, 1 CAP PO BID 11/06/17 Information Source: Patient Mode of Arrival: EMS Severity: Moderate Timing: Days Duration: Since onset Prehospital treatment: None Past Medical History PAST MEDICAL HISTORY: Asthma, Cancer (liver untreated), CVA (3x), DM, High Lipids, HTN Surgical History: Appendectomy, Cholecystectomy, Hysterectomy, Tonsillectomy BILLING ADMINISTRATOR History: No Pertinent BILLING ADMINISTRATOR History Family History Family History: Family hx of HTN Social History Smoker: Cigarettes Alcohol: Denies ETOH Use Drugs: Marijuana Lives In: Home Constitutional: denies: chills, diaphoresis, fatigue, fever, malaise, sweats, weakness, others EENTM: denies: blurred vision, double vision, ear bleeding, ear discharge, ear drainage, ear pain, ear ringing, eye pain, eye redness, hearing loss, mouth pain, mouth swelling, nasal discharge, nose bleeding, nose congestion, nose pain, photophobia, tearing, throat pain, throat swelling, voice changes, others Cardiovascular: reports: syncope; denies: chest pain, dizzy spells, diaphoresis, Dyspnea on exertion, edema, irregular heart beat, left arm pain, lightheadedness, palpitations, PND, others Gastrointestinal: reports: diarrhea, nausea, vomiting; denies: abdomen distended, abdominal pain, blood streaked bowels, constipated, dysphagia, difficulty swallowing, hematemesis, melena, poor appetite, poor fluid intake, rectal bleeding, rectal pain, others Genitourinary: denies: abnormal vagina bleeding, burning, dyspareunia, dysuria, flank pain, frequency, hematuria, incontinence, pain, , vagina discharge, urgency, others Neurological: reports: headache; denies: dizziness, fainting, left sided numbness, left sided weakness, numbness, paresthesia, pre-existing deficit, rig ht sided numbness, right sided weakness, seizure, speech problems, tingling, tremors, weakness, others Musculoskeletal: reports: others (generalized bodyaches); denies: back pain, gout, joint pain, joint swelling, muscle pain, muscle stiffness, neck pain Integumetry: denies: bruises, change in color, change in hair/nails, dryness, laceration, lesions, lumps, rash, wounds, others Allergic/Immunocompromised: denies: Difficulty Healing, Frequent Infections, Hives, Itching, others Hematologic/Lymphatic: denies: anemia, blood clots, easy bleeding, easy bruising, swollen glands, others Endocrine: denies: excessive hunger, excessive sweating, excessive thirst, excessive urination, flushing, intolerance to cold, intolerance to heat, unexplained weight gain, unexplained weight loss, others Psychiatric: denies: anxiety, bipolar disorder, depression, hopeless, panic dis order, schizophrenia, sleepless, suicidal, others Physical Exam General Appearance: Moderate Distress HEENT: Normal ENT Inspection, Pharynx Normal, TMs Normal Neck: Full Range of Motion, Non-Tender, Normal, Normal Inspection Respiratory: Chest Non-Tender, Lungs Clear, No Accessory Muscle Use, No Respiratory Distress, Normal Breath Sounds Cardiovascular: No Edema, No JVD, No Murmur, No Gallop, Normal Peripheral Pulses, Regular Rate/Rhythm Breast Exam: Deferred Gastrointestinal: No Organomegaly, Non Tender, No Pulsatile Mass, Normal Bowel Sounds, Soft Genitalia: Deferred Pelvic: Deferred Rectal: Deferred Extremities: No calf tenderness, Normal capillary refill, Normal inspection, Normal range of motion, Non-tender, No pedal edema Musculoskeletal : Apperance: Normal Neurologic: Alert, appraisal coordinator II-XII nml as Tested, Motor Weakness, Normal Affect, Normal Mood, No Sensory Deficits Cerebellar Function: Normal Reflexes: Normal Skin: Dry, Normal Color, Warm Lymphatic: No Adenopathy Was a procedure done? Was a procedure done?: No Differential Dx Considerations may include: viral syndrome, electrolyte imbalance, dehydration, sepsis, gastritis, gastroenteritis, spoiled food, liver CA untreated X-Ray, Labs, Meds, VS Vital Signs Date Time Temp Pulse Resp B/P (MAP) Pulse Ox O2 Delivery O2 Flow Rate FiO2 03/08/24 14:00 100.2 100 18 145/82 (103) 100 100.2 03/08/24 11:42 78 18 141/68 03/08/24 10:43 112 18 99 Room Air* 0 21 03/08/24 10:43 98.3 112 18 141/68 (92) 99 98.3 03/08/24 10:40 112 18 141/68 03/08/24 09:49 111 03/08/24 09:43 99.4 113 18 145/88 (107) 100 Lab Test 03/08/24 10:47 03/08/24 10:30 Range/Units White Blood Count 4.5 4.4-10.8 10^3/uL Red Blood Count 4.32 4.0-5.20 10^6/uL Hemoglobin 14.2 12.2-16.2 g/dL Hematocrit 41.3 36.0-46.0 % Mean Corpuscular Volume 95.7 80.0-100.0 fL Mean Corpuscular Hemoglobin 32.8 H 28.0-32.0 pg Mean Corpuscular Hemoglobin Concent 34.2 32.0-36.0 g/dL Red Cell Distribution Width 13.1 11.8-14.3 % Platelet Count 269 140-450 10^3/uL Mean Platelet Volume 9.1 6.9-10.8 fL Neutrophils (%) (Auto) 79.8 37.0-80.0 % Lymphocytes (%) (Auto) 7.8 L 10.0-50.0 % Monocytes (%) (Auto) 10.9 0.0-12.0 % Eosinophils (%) (Auto) 0.5 0.0-7.0 % Basophils (%) (Auto) 1.0 0.0-2.0 % Neutrophils # (Auto) 3.6 1.6-8.6 10 ^3/uL Lymphocytes # (Auto) 0.3 L 0.4-5.4 10 ^3/uL Monocytes # (Auto) 0.5 0-1.3 10 ^3/uL Eosinophils # (Auto) 0 0-0.8 10 ^3/uL Basophils # (Auto) 0 0-0.2 10 ^3/uL Nucleated Red Blood Cells 0.0 % Sodium Level 136 136-145 mmol/L Potassium Level 4.5 3.5-5.1 mmol/L Chloride Level 101 98-107 mmol/L Carbon Dioxide Level 24 20-31 mmol/L Anion Gap 11 5-15 Blood Urea Nitrogen 9 9-23 mg/dL Creatinine 1.03 H 0.550-1.02 mg/dL Glomerular Filtration Rate Calc 62 >90 mL/min BUN/Creatinine Ratio 8.7 L 10.0-20.0 Serum Glucose 366 H 74-106 mg/dL Calcium Level 10.3 8.7-10.4 mg/dL Total Bilirubin 0.4 0.2-1.0 mg/dL Aspartate Amino Transferase (AST) 16 13-40 U/L Alanine Aminotransferase (ALT) 25 7-40 U/L Alkaline Phosphatase 98 46-116 U/L Total Protein 7.6 5.7-8.2 g/dL Albumin 4.5 3.2-4.8 g/dL Urine Color Light-yellow Yellow Urine Clarity Clear Clear Urine pH 5.0 5.0-9.0 Urine Specific Anderson 1.030 1.001-1.035 Urine Protein 1+ H Negative Urine Ketones 2+ H Negative Urine Blood Trace H Negative /uL Urine Nitrite Negative Negative Urine Bilirubin Negative Negative Urine Urobilinogen Normal Negative mg/dL Urine Leukocyte Esterase Negative Negative /uL Urine RBC 1 0 - 4 /hpf Urine WBC 1 0 - 5 /hpf Urine Squamous Epithelial Cells Few <5 /hpf Urine Bacteria None seen None Seen /hpf Urine Glucose 4+ H Normal mg/dL Current Medications Medications (Trade) Dose Ordered Sig/Nicholas Route Start Time Stop Time Status Last Admin Sodium Chloride 500 ml @ 500 mls/hr Q1H ONCE IV 03/08/24 10:30 03/08/24 11:29 DC 03/08/24 10:39 Ondansetron HCl (Zofran) 4 mg ONCE ONCE IV 03/08/24 10:30 03/08/24 10:31 DC 03/08/24 10:39 Morphine Sulfate 4 mg ONCE ONCE IV 03/08/24 10:30 03/08/24 10:31 DC 03/08/24 10:40 Intractable vomiting was controlled by Zofran 4 mg IV push The patient was given morphine 4 mg IV push for the pain The urine test is negative for infection The CBC and chemistry panel are within normal limits except for creatinine of 1.03 At this time, the patient was being admitted to the hospitalist Time of 1ST Reevaluation: 10:40 Reevaluation 1ST: Unchanged Patient Education/Counseling: Diagnosis, Treatment, Prognosis Family Education/Counseling: No Family Present Departure 1 Departure Time of Disposition: 17:03 Impression: Primary Impression: Vomiting and diarrhea Additional Impressions: Dizziness Generalized weakness Disposition: 09 ADMITTED INPATIENT Admit to: Tele Condition: Fair Critical Care Note Critical Care Time?: No Stability Stability form required: Yes Unstable for transfer: ED Physician Assesment (Clinical assesment) Heart Score Heart Score: Heart Score Response (Comments) Value History N/A 0 EKG N/A 0 Age N/A 0 Risk Factors N/A 0 Troponin N/A 0 Total 0 I personally scribed for DENIZ PENA MD ([email or web address]) on 03/08/24 at 10:51. Electronically submitted by Perez Mitchell [email or web address]). DENIZ PENA MD Mar 08, 2024 10:51
[2024-03-08 11:18] LABS: Basophils # (auto) 0 10 ^3/uL (0-0.2); Eosinophils # (auto) 0 10 ^3/uL (0-0.8); Eosinophils % (auto) 0.5 % (0.0-7.0); Hematocrit 41.3 % (36.0-46.0); Hemoglobin 14.2 g/dL (12.2-16.2); Lymphocytes # (auto) 0.3 10 ^3/uL (0.4-5.4); Lymphocytes % (auto) 7.8 % (10.0-50.0); Mean Corpuscular Hemoglobin 32.8 pg (28.0-32.0); Mean Corpuscular Hgb Conc. 34.2 g/dL (32.0-36.0); Mean Corpuscular Volume 95.7 fL (80.0-100.0); Monocytes # (auto) 0.5 10 ^3/uL (0-1.3); Monocytes % (auto) 10.9 % (0.0-12.0); Neutrophils # (auto) 3.6 10 ^3/uL (1.6-8.6); Neutrophils % (auto) 79.8 % (37.0-80.0); Platelet Count (auto) 269 10^3/uL (140-450); Red Blood Cells 4.32 10^6/uL (4.0-5.20); Red Cell Distribution Width 13.1 % (11.8-14.3); White Blood Cell 4.5 10^3/uL (4.4-10.8)
[2024-03-08 11:28] LABS: Alanine Aminotransferase 25 U/L (7-40); Albumin 4.5 g/dL (3.2-4.8); Alkaline Phosphatase 98 U/L (46-116); Anion Gap 11 (5-15); Aspartate Aminotransferase 16 U/L (13-40); BUN/Creatinine Ratio 8.7 (10.0-20.0); Bilirubin, Total 0.4 mg/dL (0.2-1.0); Blood Urea Nitrogen 9 mg/dL (9-23); Calcium 10.3 mg/dL (8.7-10.4); Carbon Dioxide 24 mmol/L (20-31); Chloride 101 mmol/L (98-107); Potassium 4.5 mmol/L (3.5-5.1)
[2024-03-08 11:29] LABS: Total Protein 7.6 g/dL (5.7-8.2)
[2024-03-08 11:31] LABS: Glucose 366 mg/dL (74-106); Sodium 136 mmol/L (136-145)
[2024-03-08 12:58] LABS: Urine Bacteria None Seen /hpf (None Seen)
[2024-03-08 13:15] LABS: Urine Blood TRACE /uL (Negative); Urine Clarity Clear (Clear); Urine Color Light-Yellow (Yellow); Urine Protein, UAD 1+ (Negative); Urine Squamous Epithelial Cell FEW /hpf (<5); Urine Urobilinogen Normal (Negative); Urine WBC 1 /hpf (0 - 5)
[2024-03-08] MEDS ORDERED: ACETAMINOPHEN 325 MG TAB PO PRN (17:00)
[2024-03-08] MEDS ORDERED: DEXTROSE (50%) 50ML SYRG IV PRN (17:00)
[2024-03-08] MEDS ORDERED: HYDROcodone-ACET 5/325MG TAB PO PRN (17:00)
--- NOTE | 2024-03-08 17:06 | DVHHP2 ---
History of Present Illness History of Present Illness 58 y/o F, with a Hx of stage IV colon cancer with liver Mets (treatment dc by pt), asthma, CVA, DM, vitamin-D deficiency, HLD, HTN, appendectomy, tonsillectomy, cholecystectomy, hysterectomy, and polysubstance abuse, is BIBA for c/o generalized bodyaches, nausea, vomiting, diarrhea, and headache for the past 4x days and multiple syncopal episodes, today. Patient is close relative recently and she had contact with multiple relatives. Patient endorses on "passing out" 3x today following a few days of p.o. intolerance, nausea vomiting diarrhea.. She also informs on stopping her chemotherapy for her liver CA on her own choice for over a year, due to treatment "making [her] sick." Denies travel, undercook/old/spoiled foods. She denies having any urinary symptoms, rash. Review of Systems Review of Systems As per HPI Allergies: Coded Allergies: Ibuprofen (Verified Allergy, Severe, 06/11/20) Medications Current Medications Medications Dose Ordered Sig/Nicholas Route Start Time Stop Time Status Last Admin Dose Admin Acetaminophen/ Hydrocodone Bitart 1 tab Q4HP PRN PO 03/08/24 17:00 UNV Ondansetron HCl 4 mg Q4HP PRN IV 03/08/24 17:00 UNV Enoxaparin Sodium 40 mg DAILY SC 03/09/24 10:00 UNV Acetaminophen 650 mg Q6HP PRN PO 03/08/24 17:00 UNV Morphine Sulfate 2 mg Q4HPRN PRN IV 03/08/24 17:00 UNV Exam Vital Signs Vital Signs Date Time Temp Pulse Resp B/P (MAP) Pulse Ox O2 Delivery O2 Flow Rate FiO2 03/08/24 14:00 100.2 100 18 145/82 (103) 100 100.2 03/08/24 10:43 Room Air* 0 21 Exam GEN: Healthy appearing, well-developed, NAD. HEENT: NC/AT; dry mucous membranes CV: RRR, no m/r/g. LUNGS: CTAB, no w/r/c. Chest wall tenderness ABD: No masses or organomegaly. Mild abdominal tenderness, hyperactive bowel sounds, no acute abdomen signs (rigidity, rebound tenderness) EXT: skin Warm, well perfused. no rashes. No clubbing, cyanosis, or edema. NEURO: Ambulating with no limitations. No focal deficits. Labs/Xrays Labs Test 03/08/24 10:47 03/08/24 10:30 Range/Units White Blood Count 4.5 4.4-10.8 10^3/uL Red Blood Count 4.32 4.0-5.20 10^6/uL Hemoglobin 14.2 12.2-16.2 g/dL Hematocrit 41.3 36.0-46.0 % Mean Corpuscular Volume 95.7 80.0-100.0 fL Mean Corpuscular Hemoglobin 32.8 H 28.0-32.0 pg Mean Corpuscular Hemoglobin Concent 34.2 32.0-36.0 g/dL Red Cell Distribution Width 13.1 11.8-14.3 % Platelet Count 269 140-450 10^3/uL Mean Platelet Volume 9.1 6.9-10.8 fL Neutrophils (%) (Auto) 79.8 37.0-80.0 % Lymphocytes (%) (Auto) 7.8 L 10.0-50.0 % Monocytes (%) (Auto) 10.9 0.0-12.0 % Eosinophils (%) (Auto) 0.5 0.0-7.0 % Basophils (%) (Auto) 1.0 0.0-2.0 % Neutrophils # (Auto) 3.6 1.6-8.6 10 ^3/uL Lymphocytes # (Auto) 0.3 L 0.4-5.4 10 ^3/uL Monocytes # (Auto) 0.5 0-1.3 10 ^3/uL Eosinophils # (Auto) 0 0-0.8 10 ^3/uL Basophils # (Auto) 0 0-0.2 10 ^3/uL Nucleated Red Blood Cells 0.0 % Sodium Level 136 136-145 mmol/L Potassium Level 4.5 3.5-5.1 mmol/L Chloride Level 101 98-107 mmol/L Carbon Dioxide Level 24 20-31 mmol/L Anion Gap 11 5-15 Blood Urea Nitrogen 9 9-23 mg/dL Creatinine 1.03 H 0.550-1.02 mg/dL Glomerular Filtration Rate Calc 62 >90 mL/min BUN/Creatinine Ratio 8.7 L 10.0-20.0 Serum Glucose 366 H 74-106 mg/dL Calcium Level 10.3 8.7-10.4 mg/dL Total Bilirubin 0.4 0.2-1.0 mg/dL Aspartate Amino Transferase (AST) 16 13-40 U/L Alanine Aminotransferase (ALT) 25 7-40 U/L Alkaline Phosphatase 98 46-116 U/L Total Protein 7.6 5.7-8.2 g/dL Albumin 4.5 3.2-4.8 g/dL Urine Color Light-yellow Yellow Urine Clarity Clear Clear Urine pH 5.0 5.0-9.0 Urine Specific [place] 1.030 1.001-1.035 Urine Protein 1+ H Negative Urine Ketones 2+ H Negative Urine Blood Trace H Negative /uL Urine Nitrite Negative Negative Urine Bilirubin Negative Negative Urine Urobilinogen Normal Negative mg/dL Urine Leukocyte Esterase Negative Negative /uL Urine RBC 1 0 - 4 /hpf Urine WBC 1 0 - 5 /hpf Urine Squamous Epithelial Cells Few <5 /hpf Urine Bacteria None seen None Seen /hpf Urine Glucose 4+ H Normal mg/dL Assessment/Plan Assessment/Plan # Syncope, unwitnessed - q.4 hour neuro checks # Intractable nausea and vomiting with PO intolerance- now tolerating p.o. minimally, start p.r.n. antiemetics Zofran # Intravascular volume depletion-given fluids and IV fluids in ER, we will continue 1 mL at maintenance rate # Diabetes with uncontrolled hyperglycemia ,-hyperglycemia blood glucose in 300s, moderate sliding scale q.4 hours. Need to avoid Jardiance given recurrent hypoglycemia with glucosuria # History of medical noncompliance- # diffuse aches and pains-could be from viral syndrome but noted the patient is on fenofibrate and Lipitor we will check CK. Concern for myopathy # History of stroke # Asthma # stage IV colon cancer with Mets to liver ( patient elected to start therapy due to side effects) # Hypertension --continue home meds # Hyperlipidemia -continue home meds # Multiple abdominal surgery history # History of polysubstance abuse -pending UDS - we will also check for lactic acid and repeat BMP for hyperglycemia, notified patient nurse that sliding scale moderate Q4H until probable stabilizes - poor prognosis given medical noncompliance and high stage cancer - UDS pending - flu COVID pending Diet diabetic GI prophylaxis-tolerating diet DVT prophylaxis Lovenox 40 subQ Med surge DNR - untreated cancer Plan discussed with: Patient My Orders Orders - MALAIKA BARBOSA MD Procedure Category Date Status Time Admit ADMIT 03/08/24 Transmitted 16:53 Code Status CODE 03/08/24 Transmitted 16:53 Hydrocodone-Acet PHA 03/08/24 Logged 5/325mg Tab ([place] 17:00 Ondansetron Hcl PHA 03/08/24 Logged (Zofran) 17:00 Enoxaparin Sodium PHA 03/09/24 Logged (Lovenox) 10:00 Complete Blood Count LAB 03/09/24 Verified 04:00 Comprehensive LAB 03/09/24 Verified Metabolic Panel 04:00 Acetaminophen Tablet PHA 03/08/24 Logged (Tylenol Tablet) 17:00 Bedrest With Bathroom LINNEA 03/08/24 In Process Privileg 16:53 Morphine Sulfate PHA 03/08/24 Logged Injection 17:00 Consistent DIET 03/08/24 Transmitted Carb(Ccho)Diabetes Dinner Date of Service: Mar 08, 2024 Billing Provider: MALAIKA BARBOSA MD Common Visit Codes: [id number] INP/OBS CARE (HIGH) Secondary Visit Codes: [id number] CARE PLAN 30 MINUTES MALAIKA BARBOSA MD Mar 08, 2024 17:06
[2024-03-08] MEDS: LACTATED RINGER'S 1,000 ML IV ONE (17:21)
[2024-03-08 18:17] LABS: Chloride 100 mmol/L (98-107); Potassium 3.9 mmol/L (3.5-5.1)
[2024-03-08 18:18] LABS: Anion Gap 10 (5-15); Carbon Dioxide 23 mmol/L (20-31)
[2024-03-08 18:19] LABS: Calcium 9.8 mg/dL (8.7-10.4)
[2024-03-08 18:23] LABS: BUN/Creatinine Ratio 10.9 (10.0-20.0); Blood Urea Nitrogen 12 mg/dL (9-23)
[2024-03-08 18:24] LABS: Glucose 297 mg/dL (74-106); Sodium 133 mmol/L (136-145)
[2024-03-08 19:06] LABS: COVID19 ANTIGEN SOFIA FIA NEGATIVE (NEGATIVE)
[2024-03-08 19:09] LABS: Rapid Influenza A Positive (Negative); Rapid Influenza B Negative (Negative)
--- NOTE | 2024-03-08 19:10 | ECG ---
[facility] Test Date: 2024-03-08 Test Time: 09:49:04 Pat Name: KARLA ASHLEY Department: ER Room: 0212 Gender: F Manager Of Internal: ARY : 1965 Requested By: IQRA SIMENTAL Order Number: [id number] Reading MD: Angel Umanzor Measurements Intervals [place] Rate: 111 P: 66 TN: 143 QRS: 1 QRSD: 82 T: 77 QT: 335 QTc: 455 Interpretive Statements Sinus tachycardia Baseline wander in lead(s) V6 Electronically Signed On 03-09-2024 13:09:08 PST by Angel Umanzor Please click the below link to view image of tracing.
[2024-03-08] MEDS: ACETAMINOPHEN 325 MG TAB PO SCH (19:25)
[2024-03-08] MEDS: InsuLIN REG 1unit/0.01ml Soln (100units/ml) SC SCH (21:02)
[2024-03-08] MEDS: ACCU-CHEK COMFORT CURVE STRIP VI SCH (21:03)
[2024-03-08] MEDS: ONDANSETRON HCL 4 MG/2 ML VIAL IV PRN (21:54)
[2024-03-08] MEDS: MORPHINE SULFATE INJ 2 MG/ml SYRG IV PRN (21:55)
[2024-03-08] MEDS ORDERED: IBUPROFEN 600 MG TAB PO SCH (22:00)
[2024-03-08] MEDS: BACLOFEN 10 MG TAB PO SCH (23:13)
[2024-03-08] MEDS ORDERED: LISI-275 PO (23:17)
[2024-03-08] MEDS ORDERED: TRIO1TP TOP (23:20)
[2024-03-08] MEDS ORDERED: KETO2CRE4 TOP (23:20)
[2024-03-08] MEDS ORDERED: FLUC200T50 PO (23:20)
[2024-03-08] MEDS ORDERED: [UNRECOGNIZED DRUG - CODE] (23:20)
[2024-03-08 23:24] VITALS: BP 130/72; PULSE 111; RESP 18; TEMP 98.2; O2SAT 96
[2024-03-09] VITALS (7 sets, daily range): BP systolic 109–134; BP diastolic 63–78; PULSE 71–108; RESP 17–22; TEMP 98–100.4; O2SAT 96–98
[2024-03-09] MEDS: HYDROcodone-ACET 10/325MG TAB PO PRN (04:38)
[2024-03-09 07:39] LABS: Hematocrit 37.4 % (36.0-46.0); Hemoglobin 12.5 g/dL (12.2-16.2); Mean Corpuscular Hemoglobin 32.1 pg (28.0-32.0); Mean Corpuscular Hgb Conc. 33.4 g/dL (32.0-36.0); Mean Corpuscular Volume 96.2 fL (80.0-100.0); Platelet Count (auto) 213 10^3/uL (140-450); Red Blood Cells 3.88 10^6/uL (4.0-5.20); Red Cell Distribution Width 13.1 % (11.8-14.3); White Blood Cell 3.5 10^3/uL (4.4-10.8)
[2024-03-09 07:46] LABS: Basophils % (manual) 0 (0.0-2.0); Blast Cells 0; Eosinophils % (manual) 0 (0-7); Metamyelocytes % 0; Myelocytes % 0; Promyelocytes % 0; Reactive Lymphocytes 0
[2024-03-09 07:53] LABS: Alanine Aminotransferase 23 U/L (7-40); Albumin 3.8 g/dL (3.2-4.8); Alkaline Phosphatase 72 U/L (46-116); Anion Gap 8 (5-15); Aspartate Aminotransferase 18 U/L (13-40); BUN/Creatinine Ratio 14.4 (10.0-20.0); Blood Urea Nitrogen 15 mg/dL (9-23); Calcium 9.4 mg/dL (8.7-10.4); Carbon Dioxide 25 mmol/L (20-31); Chloride 103 mmol/L (98-107); Potassium 3.6 mmol/L (3.5-5.1); Total Protein 6.3 g/dL (5.7-8.2)
[2024-03-09 07:55] LABS: Opiate Scree,Urine Pos (NEGATIVE)
[2024-03-09 07:58] LABS: Amphetamine Screen, Urine Neg (NEGATIVE); Barbiturate Scree,Urine Neg (NEGATIVE); Benzodiazephine Screen, Urine Neg (NEGATIVE); Cannabinoid Screen, Urine Neg (NEGATIVE); Cocaine Screen, Urine Neg (NEGATIVE); Phencyclidine Screen, Urine Neg (NEGATIVE)
[2024-03-09 07:58] LABS: Bilirubin, Total 0.3 mg/dL (0.2-1.0); Glucose 170 mg/dL (74-106); Sodium 136 mmol/L (136-145)
[2024-03-09 08:53] LABS: Band Neutrophils % (manual) 1; Lymphocytes % (manual) 19 (10.0-50.0); Monocytes % (manual) 15 (0-12)
[2024-03-09 08:54] LABS: Platelet Estimate Adequate
[2024-03-09] MEDS: ENOXAPARIN SOD 40 MG/0.4 ML SYRINGE SC SCH (09:01)
[2024-03-09] MEDS: ASPirin-EC 81 mg tab PO SCH (09:01)
[2024-03-09] MEDS: SERTRALINE HCL 50 MG TAB PO SCH (09:01)
--- NOTE | 2024-03-09 12:48 | DVHPN2 ---
Reviewed: Care Plan, H&P, Labs, Medications, Previous Orders, Radiology Changes from previous H/P or p: No Changes Objective Vitals Vital Signs Date Time Temp Pulse Resp B/P (MAP) Pulse Ox O2 Delivery O2 Flow Rate FiO2 03/09/24 09:11 98.9 108 19 118/77 (91) 96 98.9 03/09/24 08:00 Room Air* 0 21 Intake/Output Intake and Output 03/09/24 07:00 Intake Total 350 ml Output Total 3 ml Balance 347 ml Intake Oral 350 ml Output Urine Total 3 ml Medications Current Medications Medications Dose Ordered Sig/Nicholas Route Start Time Stop Time Status Last Admin Dose Admin Ondansetron HCl 4 mg Q4HP PRN IV 03/08/24 17:00 03/08/24 21:54 4 MG Enoxaparin Sodium 40 mg DAILY SC 03/09/24 10:00 03/09/24 09:01 40 MG Acetaminophen 650 mg Q6HP PRN PO 03/08/24 17:00 Morphine Sulfate 2 mg Q4HPRN PRN IV 03/08/24 17:00 03/08/24 21:55 2 MG Diagnostic Test (Pha) 1 strip IQ4HR 03/08/24 20:00 03/09/24 11:51 1 STRIP Insulin Human Regular IQ4HR SC 03/08/24 20:00 03/09/24 11:51 9 UNITS Dextrose 50 ml UD PRN IV 03/08/24 17:00 Aspirin 81 mg DAILY PO 03/09/24 10:00 03/09/24 09:01 81 MG Sertraline HCl 50 mg DAILY PO 03/09/24 10:00 03/09/24 09:01 50 MG Acetaminophen 650 mg Q6H PO 03/08/24 17:30 03/09/24 14:00 03/09/24 11:51 650 MG Ibuprofen 600 mg TID PO 03/08/24 22:00 03/09/24 14:00 Hold Baclofen 10 mg Q8HR PO 03/08/24 22:00 03/09/24 14:00 03/09/24 05:27 10 MG Acetaminophen/ Hydrocodone Bitart 1 tab Q4HP PRN PO 03/08/24 17:30 03/09/24 04:38 1 TAB Laboratory Results Laboratory Tests 03/09/24 07:00 Chemistry Test 03/08/24 17:42 03/09/24 07:00 Calcium Level 9.8 mg/dL (8.7-10.4) 9.4 mg/dL (8.7-10.4) Albumin 3.8 g/dL (3.2-4.8) Total Protein 6.3 g/dL (5.7-8.2) LFT Test 03/09/24 07:00 Alanine Aminotransferase (ALT) 23 U/L (7-40) Alkaline Phosphatase 72 U/L (46-116) Aspartate Amino Transferase (AST) 18 U/L (13-40) Total Bilirubin 0.3 mg/dL (0.2-1.0) Urinalysis Test 03/08/24 10:30 Urine Color Light-yellow (Yellow) Urine Clarity Clear (Clear) Urine pH 5.0 (5.0-9.0) Urine Specific [place] 1.030 (1.001-1.035) Urine Protein 1+ (Negative) H Urine Ketones 2+ (Negative) H Urine Blood Trace /uL (Negative) H Urine Nitrite Negative (Negative) Urine Bilirubin Negative (Negative) Urine Urobilinogen Normal mg/dL (Negative) Urine Leukocyte Esterase Negative /uL (Negative) Urine RBC 1 /hpf (0 - 4) Urine WBC 1 /hpf (0 - 5) Urine Squamous Epithelial Cells Few /hpf (<5) Urine Bacteria None seen /hpf (None Seen) Urine Glucose 4+ mg/dL (Normal) H Labs and/or images reviewed: Labs reviewed by me, Image(s) reviewed by me Assessment/Plan Assessment/Plan Septic shock with hypotension confusion: Blood cultures urine cultures Influenza type A Tamiflu Possible community-acquired pneumonia: Rocephin azithromycin Uncontrolled diabetes with a glucose of 336: Insulin sliding scale History of colon cancer stage IV with Mets to the liver History of CVA Hypertension Hypercholesterolemia History of drug abuse: Urine drug screen negative Patient has stopped chemotherapy one year ago COVID-19 ruled out Multiple syncopal episodes: CT head ordered Nausea and vomiting CT abdomen pelvis without contrast ordered Time spent 65 minutes Patient is full code Advanced care planning 20 minutes Condition poor Plan discussed with: Patient My Orders Orders - BASHIR CAMPO MD Procedure Category Date Status Time Chest Xray 1 View XY 03/09/24 Logged 12:[address] 03/09/24 Logged 12:37 Date of Service: Mar 09, 2024 Billing Provider: BASHIR CAMPO MD Common Visit Codes: [id number] CARE 30-74 MIN BASHIR CAMPO MD Mar 09, 2024 12:48
--- NOTE | 2024-03-09 13:07 | DVH ---
CHEST RADIOGRAPH Indication: Shortness of breath Technique: Single frontal view of the chest was obtained Comparison: XY CHEST PORTABLE on DOS: 04/05/23 FINDINGS: Lines and Tubes: None Lungs: No focal consolidation. Pleura: No effusion. No pneumothorax. Cardiomediastinal contours: Unremarkable Bones: No acute osseous abnormality. IMPRESSION: No acute cardiopulmonary disease.
[2024-03-09] MEDS: cefTRIAXone 1GM/50ML D5W 50 ML IV ONE (14:08)
[2024-03-09] MEDS: AZITHROMYCIN 500MG/ 250ML 250 ML IV ONE (16:21)
--- NOTE | 2024-03-09 17:14 | DVH ---
EXAM: CT HEAD WITHOUT CONTRAST INDICATION: Multiple syncopal episodes TECHNIQUE: CT of the head without intravenous contrast. Radiation dose : 1. Head: CT Dose: CTDI volume is 65 mGy. Dose-length product is 1279 mGy*cm The dose indicators for CT are the volume computed tomography (CT) dose index (CTDIvol) and the dose length product (DLP), and are measured in units of mGy and mGy-cm, respectively. These indicators are not patient dose, but values generated from the CT scanner acquisition factors. The report includes radiation exposure data for exposures received during this examination. COMPARISON: CT HEAD WITHOUT CONTRAST on DOS: 04/05/23, HEAD WITHOUT CONTRAST on DOS: 03/23/22, CT ABD PE LVIS WO CONTRAST on DOS: 03/22/22, HEAD WITHOUT CONTRAST on DOS: 06/11/20 FINDINGS: There is no evidence of acute intracranial hemorrhage, extra-axial collection, mass effect, midline s hift, herniation or hydrocephalus. The ventricles, sulci and cisterns are age appropriate. The rodriguez-white differentiation is intact. Patchy periventricular and subcortical white matter hypoattenuation is nonspecific but may be related to small vessel ischemic disease. The visualized paranasal sinuses and mastoid air cells are clear. The surrounding soft tissues and osseous structures are unremarkable. No chiari type 1 malformation. Clivus is intact. No subarachnoid hemorrhage. IMPRESSION: 1. No acute intracranial abnormality. Radiation optimization: All CT scans at this facility use at least one of these dose optimization blanca hniques: Automated exposure control mA and/or kV adjustment per patient size (includes targeted exams where dose is matched to clinical indication) or iterative reconstruction.
--- NOTE | 2024-03-09 17:53 | DVH ---
CLINICAL HISTORY: Nausea vomiting history of colon cancer TECHNIQUE: CT of the abdomen and pelvis was performed without intravenous contrast. This exam was per formed according to our departmental dose optimization program. Up-to-date CT equipment and radiation dose reduction techniques are utilized as appropriate. CTDI: [CTDIvol] DLP: 869.44 WID: COMPARISON: CT CT AB PEL WITH IV CON ONLY on DOS: 11/19/22 FINDINGS: Lower Thorax: Linear bibasilar scarring or atelectasis. Normal-sized heart with trace pericardial eff usion. Liver and Biliary system: Mild hepatomegaly measuring 18 cm craniocaudal. Otherwise unremarkable. Spleen: Unremarkable. Adrenal Glands and Kidneys: Mild thickening of the bilateral adrenal glands. There are bilateral danuta l cysts. There is no hydronephrosis or nephrolithiasis. Pancreas and Retroperitoneum: Unremarkable. Aorta and Major Vessels: Aortoiliac vessels are normal in caliber containing [id number] calcifi ed atherosclerotic plaque. Bowel, Mesentery and Peritoneal space: The small and large bowel loops are normal in caliber. There i s a right ileocolonic anastomosis. Apparent mild wall thickening of a long segment of large bowel pre dominantly of the descending colon. There is no free air or loculated fluid collection. No mesenteri c lymphadenopathy. Pelvis: Prior hysterectomy. Otherwise unremarkable. Abdominal wall and Osseous Structures: Prior midline laparotomy. No destructive osseous lesion. Minor lower thoracic and lumbar spondylosis. IMPRESSION: 1. Mild wall thickening of long segment large bowel predominantly in the descending colon which may b e in part due to underdistention versus infectious or inflammatory colitis 2. Prior right ileocolonic anastomosis. No bowel obstruction. 3. Mild hepatomegaly. 4. Bilateral renal cysts.
[2024-03-09] MEDS: OSELTAMIVIR 75 MG CAP PO SCH (22:05)
[2024-03-10] VITALS (7 sets, daily range): BP systolic 111–128; BP diastolic 67–77; PULSE 80–103; RESP 16–19; TEMP 97.5–98.5; O2SAT 0–98
[2024-03-10] MEDS: cefTRIAXone 1GM/50ML D5W 50 ML IV SCH (08:38)
[2024-03-10] MEDS: AZITHROMYCIN 250 MG TAB PO SCH (09:04)
[2024-03-10] MEDS ORDERED: AZITHROMYCIN 500MG/ 250ML 250 ML IV SCH (10:00)
--- NOTE | 2024-03-10 10:21 | DVHPN2 ---
Subjective Seen and examined at bedside, c/o fatigue, weakness, and loss of appetite. Patient will cont IVF Reviewed: Care Plan, H&P, Labs, Medications, Previous Orders, Radiology Changes from previous H/P or p: No Changes Objective Vitals Vital Signs Date Time Temp Pulse Resp B/P (MAP) Pulse Ox O2 Delivery O2 Flow Rate FiO2 03/10/24 05:00 98.1 81 17 124/72 (89) 94 98.1 03/09/24 20:00 Room Air* 0 21 Intake/Output Intake and Output 03/10/24 07:00 Intake Total 1700 ml Output Total 300 ml Balance 1400 ml Intake Oral 1700 ml Output Urine Total 300 ml # Voids 2 General Appearance: Alert, Oriented X3, Cooperative, mild distress HEENT: Atraumatic, PERRLA, EOMI Lungs: Clear to auscultation Cardiovascular: Regular rate, Normal S1, Normal S2 Abdomen: Normal bowel sounds, Soft Rectal: Deferred Psych/Mental Status: Mental status NL Medications Current Medications Medications Dose Ordered Sig/Nicholas Route Start Time Stop Time Status Last Admin Dose Admin Ondansetron HCl 4 mg Q4HP PRN IV 03/08/24 17:00 03/08/24 21:54 4 MG Enoxaparin Sodium 40 mg DAILY SC 03/09/24 10:00 03/10/24 09:06 40 MG Acetaminophen 650 mg Q6HP PRN PO 03/08/24 17:00 Morphine Sulfate 2 mg Q4HPRN PRN IV 03/08/24 17:00 03/08/24 21:55 2 MG Diagnostic Test (Pha) 1 strip IQ4HR 03/08/24 20:00 03/10/24 08:00 1 STRIP Insulin Human Regular IQ4HR SC 03/08/24 20:00 03/10/24 09:03 3 UNITS Dextrose 50 ml UD PRN IV 03/08/24 17:00 Aspirin 81 mg DAILY PO 03/09/24 10:00 03/10/24 09:05 81 MG Sertraline HCl 50 mg DAILY PO 03/09/24 10:00 03/10/24 09:05 50 MG Acetaminophen/ Hydrocodone Bitart 1 tab Q4HP PRN PO 03/08/24 17:30 03/10/24 09:05 1 TAB Oseltamivir Phosphate 75 mg Q12HR PO 03/09/24 22:00 03/14/24 21:59 03/10/24 09:06 75 MG Ceftriaxone Sodium 50 ml @ 100 mls/hr DAILY@09 IV 03/10/24 09:00 03/10/24 08:38 100 MLS/HR Sodium Chloride 1,000 ml @ 125 mls/hr Q8H IV 03/10/24 10:15 03/11/24 02:14 UNV Azithromycin 500 mg DAILY PO 03/11/24 10:00 03/14/24 09:59 UNV Laboratory Results Laboratory Tests 03/09/24 07:00 Urinalysis Test 03/08/24 10:30 Urine Color Light-yellow (Yellow) Urine Clarity Clear (Clear) Urine pH 5.0 (5.0-9.0) Urine Specific [place] 1.030 (1.001-1.035) Urine Protein 1+ (Negative) H Urine Ketones 2+ (Negative) H Urine Blood Trace /uL (Negative) H Urine Nitrite Negative (Negative) Urine Bilirubin Negative (Negative) Urine Urobilinogen Normal mg/dL (Negative) Urine Leukocyte Esterase Negative /uL (Negative) Urine RBC 1 /hpf (0 - 4) Urine WBC 1 /hpf (0 - 5) Urine Squamous Epithelial Cells Few /hpf (<5) Urine Bacteria None seen /hpf (None Seen) Urine Glucose 4+ mg/dL (Normal) H Assessment/Plan Assessment/Plan # Influenza - TamiFlu # Acute Cystitis - Abx - Urine Culture # Possible Colitis?? - Abx # h/o Stage IV Colon Cancer - F/u Dr. Hartman as outpatient # DM2 with hyperglycemia - A1c - Insulin 70/30 # Goals of care discussion >17 mins FULL CODE Plan discussed with: Patient My Orders Orders - NARESH AVILES MD Procedure Category Date Status Time Sodium Chloride 0.9% PHA 03/10/24 Logged 10:15 Azithromycin Tablet PHA 03/11/24 Logged (Zithromax Tablet) 10:00 Urine Bacterial [place] 03/10/24 Logged Culture 10:14 Hemoglobin A1c LAB 03/10/24 Transmitted 10:15 Vitamin D, 25-Hydroxy LAB 03/10/24 Transmitted 10:15 Insulin 70/30 (Human) PHA 03/10/24 Transmitted (Humulin 70/30) 10:15 Basic Metabolic Panel LAB 03/11/24 Verified 04:00 Complete Blood Count LAB 03/11/24 Verified 04:00 Magnesium LAB 03/11/24 Verified 04:00 Date of Service: Mar 10, 2024 Billing Provider: NARESH AVILES MD Common Visit Codes: [id number] INP/OBS CARE(HIGH) Secondary Visit Codes: [id number] CARE PLAN 30 MINUTES NARESH AVILES MD Mar 10, 2024 10:21
[2024-03-10] MEDS: SODIUM CHLORIDE 0.9% 1,000 ML IV SCH (11:36)
[2024-03-10] MEDS: INSULIN 70/30 1unit/0.01ml Susp (100units/ml) SC SCH (11:46)
[2024-03-10] MEDS: metroNIDAZOLE 500 MG TAB PO SCH (14:43)
[2024-03-10] MEDS: ERGOCALCIFEROL 50,000 UNIT(1.25MG) CAP PO SCH (17:08)
[2024-03-11 01:00] VITALS: BP 111/69; PULSE 94; RESP 18; TEMP 98.2; O2SAT 98
[2024-03-11] MEDS: LACTULOSE 20Gm/30ML SOLN PO ONE (04:38)
[2024-03-11 05:00] VITALS: BP 109/56; PULSE 96; RESP 18; TEMP 97.8; O2SAT 96
[2024-03-11 07:18] LABS: Hematocrit 37.7 % (36.0-46.0); Hemoglobin 12.8 g/dL (12.2-16.2); Mean Corpuscular Hemoglobin 33.1 pg (28.0-32.0); Mean Corpuscular Volume 97.2 fL (80.0-100.0); Platelet Count (auto) 204 10^3/uL (140-450); Red Blood Cells 3.88 10^6/uL (4.0-5.20); Red Cell Distribution Width 13.1 % (11.8-14.3); White Blood Cell 2.5 10^3/uL (4.4-10.8)
[2024-03-11 07:28] LABS: Band Neutrophils % (manual) 0; Basophils % (manual) 0 (0.0-2.0); Blast Cells 0; Eosinophils % (manual) 0 (0-7); Metamyelocytes % 0; Myelocytes % 0; Promyelocytes % 0; Reactive Lymphocytes 0
[2024-03-11 07:46] LABS: Anion Gap 10 (5-15); Carbon Dioxide 20 mmol/L (20-31); Potassium 3.6 mmol/L (3.5-5.1); Sodium 138 mmol/L (136-145)
[2024-03-11 07:51] LABS: BUN/Creatinine Ratio 13.5 (10.0-20.0); Blood Urea Nitrogen 10 mg/dL (9-23); Magnesium 2.3 mg/dL (1.6-2.6)
[2024-03-11 07:56] LABS: Chloride 108 mmol/L (98-107); Glucose 113 mg/dL (74-106)
[2024-03-11 08:48] VITALS: BP 106/58; PULSE 79; RESP 18; TEMP 98.3; O2SAT 97
[2024-03-11 09:23] LABS: Lymphocytes % (manual) 44 (10.0-50.0); Monocytes % (manual) 19 (0-12)
[2024-03-11 09:24] LABS: Platelet Estimate Adequate
[2024-03-11] MEDS: AZITHROMYCIN 250 MG TAB PO SCH (11:18)
[2024-03-11 13:00] VITALS: BP 123/78; PULSE 82; RESP 18; TEMP 98.2; O2SAT 99
--- NOTE | 2024-03-11 13:39 | DVHPN2 ---
Subjective Seen and examined at bedside, feeling better. Possible DC in AM. Reviewed: Care Plan, H&P, Labs, Medications, Previous Orders, Radiology Changes from previous H/P or p: No Changes Objective Vitals Vital Signs Date Time Temp Pulse Resp B/P (MAP) Pulse Ox O2 Delivery O2 Flow Rate FiO2 03/11/24 13:00 98.2 82 18 123/78 (93) 99 98.2 03/10/24 20:00 Room Air* 0 21 Intake/Output Intake and Output 03/11/24 07:00 Intake Total 5204 ml Output Total 600 ml Balance 4604 ml Intake Oral 2804 ml IV Total 2400 ml Output Urine Total 600 ml # Bowel Movements 2 General Appearance: Alert, Oriented X3, Cooperative, mild distress HEENT: Atraumatic, PERRLA, EOMI Lungs: Clear to auscultation Cardiovascular: Regular rate, Normal S1, Normal S2 Abdomen: Normal bowel sounds, Soft Rectal: Deferred Psych/Mental Status: Mental status NL Medications Current Medications Medications Dose Ordered Sig/Nicholas Route Start Time Stop Time Status Last Admin Dose Admin Ondansetron HCl 4 mg Q4HP PRN IV 03/08/24 17:00 03/08/24 21:54 4 MG Enoxaparin Sodium 40 mg DAILY SC 03/09/24 10:00 03/11/24 11:19 40 MG Acetaminophen 650 mg Q6HP PRN PO 03/08/24 17:00 Morphine Sulfate 2 mg Q4HPRN PRN IV 03/08/24 17:00 03/11/24 12:17 2 MG Diagnostic Test (Pha) 1 strip IQ4HR 03/08/24 20:00 03/11/24 12:13 1 STRIP Insulin Human Regular IQ4HR SC 03/08/24 20:00 03/11/24 12:30 2 UNITS Dextrose 50 ml UD PRN IV 03/08/24 17:00 Aspirin 81 mg DAILY PO 03/09/24 10:00 03/11/24 11:18 81 MG Sertraline HCl 50 mg DAILY PO 03/09/24 10:00 03/11/24 11:17 50 MG Acetaminophen/ Hydrocodone Bitart 1 tab Q4HP PRN PO 03/08/24 17:30 03/11/24 04:38 1 TAB Oseltamivir Phosphate 75 mg Q12HR PO 03/09/24 22:00 03/14/24 21:59 03/11/24 11:17 75 MG Ceftriaxone Sodium 50 ml @ 100 mls/hr DAILY@09 IV 03/10/24 09:00 03/10/24 08:38 100 MLS/HR Azithromycin 500 mg DAILY PO 03/11/24 10:00 03/14/24 09:59 03/11/24 11:18 500 MG Insulin Human Isoph/Insulin Regular 25 units BID@ SC 03/10/24 10:15 03/11/24 10:00 25 UNITS Metronidazole 500 mg Q8HR PO 03/10/24 14:00 03/11/24 06:13 500 MG Ergocalciferol 50,000 unit Q7D PO 03/10/24 15:45 03/10/24 17:08 50,000 UNIT Laboratory Results Laboratory Tests 03/11/24 06:42 Chemistry Test 03/11/24 06:42 Calcium Level 9.0 mg/dL (8.7-10.4) Magnesium Level 2.3 mg/dL (1.6-2.6) HgA1c, TSH Test 03/10/24 14:06 Hemoglobin A1c 12.7 % A1C (<5.7) H Urinalysis Test 03/08/24 10:30 Urine Color Light-yellow (Yellow) Urine Clarity Clear (Clear) Urine pH 5.0 (5.0-9.0) Urine Specific [place] 1.030 (1.001-1.035) Urine Protein 1+ (Negative) H Urine Ketones 2+ (Negative) H Urine Blood Trace /uL (Negative) H Urine Nitrite Negative (Negative) Urine Bilirubin Negative (Negative) Urine Urobilinogen Normal mg/dL (Negative) Urine Leukocyte Esterase Negative /uL (Negative) Urine RBC 1 /hpf (0 - 4) Urine WBC 1 /hpf (0 - 5) Urine Squamous Epithelial Cells Few /hpf (<5) Urine Bacteria None seen /hpf (None Seen) Urine Glucose 4+ mg/dL (Normal) H Microbiology Microbiology Date/Time Source Procedure Growth Status 03/10/24 15:44 Urine - Midstream Clean Catch Urine Culture - Preliminary Resulted Assessment/Plan Assessment/Plan # Influenza - TamiFlu # Acute Cystitis - Abx - Urine Culture # Possible Colitis?? - Abx # h/o Stage IV Colon Cancer - F/u Dr. Hartman as outpatient # DM2 with hyperglycemia - A1c - Insulin 70/30 # Vitamin D Def- Supplement # Goals of care discussion >17 mins FULL CODE Plan discussed with: Patient My Orders Orders - NARESH AVILES MD Procedure Category Date Status Time Ergocalciferol PHA 03/10/24 In Process (Vitamin D 50,000 15:45 Date of Service: Mar 11, 2024 Billing Provider: NARESH AVILES MD Common Visit Codes: [id number] INP/OBS CARE(HIGH) NARESH AVILES MD Mar 11, 2024 13:39
[2024-03-11 17:00] VITALS: BP 125/70; PULSE 73; RESP 20; TEMP 98.3; O2SAT 97
[2024-03-12 01:00] VITALS: BP 105/52; PULSE 80; RESP 18; TEMP 98.4; O2SAT 100
[2024-03-12 05:00] VITALS: BP 130/81; PULSE 71; RESP 16; TEMP 98.5; O2SAT 99
[2024-03-12 08:00] VITALS: PULSE 76; RESP 18; O2SAT 99
[2024-03-12 09:08] VITALS: BP 131/78; PULSE 76; RESP 18; TEMP 98.3; O2SAT 99
[2024-03-12] MEDS ORDERED: MET500T PO ×2 (09:15→11:39)
[2024-03-12] MEDS ORDERED: AZIT-43 PO ×2 (09:15→11:39)
[2024-03-12] MEDS ORDERED: TAMIFLU PO ×2 (09:15→11:39)
--- NOTE | 2024-03-12 09:18 | DVHDS2 ---
Discharge Summary Date of Admission Mar 08, 2024 at 16:53 Date of Discharge: Mar 12, 2024 Admitting Diagnosis Influenza Labs/Diagnostic Data: Laboratory Results Test 03/12/24 08:29 03/11/24 06:42 03/10/24 14:06 03/09/24 07:00 POC Glucose 140 mg/dl (70-106) White Blood Count 2.5 10^3/uL (4.4-10.8) Red Blood Count 3.88 10^6/uL (4.0-5.20) Hemoglobin 12.8 g/dL (12.2-16.2) Hematocrit 37.7 % (36.0-46.0) Mean Corpuscular Volume 97.2 fL (80.0-100.0) Mean Corpuscular Hemoglobin 33.1 pg (28.0-32.0) Mean Corpuscular Hemoglobin Concent 34.0 g/dL (32.0-36.0) Red Cell Distribution Width 13.1 % (11.8-14.3) Platelet Count 204 10^3/uL (140-450) Mean Platelet Volume 8.5 fL (6.9-10.8) Neutrophils (%) (Auto) % (37.0-80.0) Lymphocytes (%) (Auto) % (10.0-50.0) Monocytes (%) (Auto) % (0.0-12.0) Basophils (%) (Auto) % (0.0-2.0) Neutrophils # (Auto) 10 ^3/uL (1.6-8.6) Lymphocytes # (Auto) 10 ^3/uL (0.4-5.4) Monocytes # (Auto) 10 ^3/uL (0-1.3) Differential Total Cells Counted 100.0 (100) Neutrophils % (Manual) 37 (37.0-80.0) Band Neutrophils % (Manual) 0 Lymphocytes % (Manual) 44 (10.0-50.0) Monocytes % (Manual) 19 (0-12) Eosinophils % (Manual) 0 (0-7) Basophils % (Manual) 0 (0.0-2.0) Metamyelocytes % (manual) 0 Myelocytes % (Manual) 0 Promyelocytes % (Manual) 0 Blast Cells % (Manual) 0 Reactive Lymphocytes 0 Platelet Estimate Adequate Sodium Level 138 mmol/L (136-145) Potassium Level 3.6 mmol/L (3.5-5.1) Chloride Level 108 mmol/L (98-107) Carbon Dioxide Level 20 mmol/L (20-31) Anion Gap 10 (5-15) Blood Urea Nitrogen 10 mg/dL (9-23) Creatinine 0.74 mg/dL (0.550-1.02) Glomerular Filtration Rate Calc 93 mL/min (>90) BUN/Creatinine Ratio 13.5 (10.0-20.0) Serum Glucose 113 mg/dL (74-106) Calcium Level 9.0 mg/dL (8.7-10.4) Magnesium Level 2.3 mg/dL (1.6-2.6) Hemoglobin A1c 12.7 % A1C (<5.7) Vitamin D 25-Hydroxy 8.0 ng/mL (30.0-100) Total Bilirubin 0.3 mg/dL (0.2-1.0) Aspartate Amino Transferase (AST) 18 U/L (13-40) Alanine Aminotransferase (ALT) 23 U/L (7-40) Alkaline Phosphatase 72 U/L (46-116) Total Protein 6.3 g/dL (5.7-8.2) Albumin 3.8 g/dL (3.2-4.8) Test 03/08/24 17:44 03/08/24 10:47 03/08/24 10:30 Lactic Acid Level 1.6 mmol/L (0.4-2.0) Creatine Kinase 93 U/L (34-145) Influenza Type A Antigen Positive (Negative) Influenza Type B Antigen Negative (Negative) SARS-CoV-2 Antigen (Rapid) Negative (NEGATIVE) Eosinophils (%) (Auto) 0.5 % (0.0-7.0) Eosinophils # (Auto) 0 10 ^3/uL (0-0.8) Basophils # (Auto) 0 10 ^3/uL (0-0.2) Nucleated Red Blood Cells 0.0 % Urine Color Light-yellow (Yellow) Urine Clarity Clear (Clear) Urine pH 5.0 (5.0-9.0) Urine Specific [place] 1.030 (1.001-1.035) Urine Protein 1+ (Negative) Urine Ketones 2+ (Negative) Urine Blood Trace /uL (Negative) Urine Nitrite Negative (Negative) Urine Bilirubin Negative (Negative) Urine Urobilinogen Normal mg/dL (Negative) Urine Leukocyte Esterase Negative /uL (Negative) Urine RBC 1 /hpf (0 - 4) Urine WBC 1 /hpf (0 - 5) Urine Squamous Epithelial Cells Few /hpf (<5) Urine Bacteria None seen /hpf (None Seen) Urine Glucose 4+ mg/dL (Normal) Urine Opiates Screen Pos (NEGATIVE) Urine Fentanyl Screen Neg (NEGATIVE) Urine Barbiturates Screen Neg (NEGATIVE) Urine Phencyclidine Screen Neg (NEGATIVE) Urine Amphetamines Screen Neg (NEGATIVE) Urine Benzodiazepines Screen Neg (NEGATIVE) Urine Cocaine Screen Neg (NEGATIVE) Urine Cannabinoids Screen Neg (NEGATIVE) Other Laboratory Tests 03/11/24 06:42 Brief Hx & Hospital Course: 58 y/o F, with a Hx of stage IV colon cancer with liver Mets (treatment dc by pt), asthma, CVA, DM, vitamin-D deficiency, HLD, HTN, appendectomy, tonsillectomy, cholecystectomy, hysterectomy, and polysubstance abuse, is BIBA for c/o generalized bodyaches, nausea, vomiting, diarrhea, and headache for the past 4x days and multiple syncopal episodes, today. Patient is close relative recently and she had contact with multiple relatives. Patient endorses on "passing out" 3x today following a few days of p.o. intolerance, nausea vomiting diarrhea.. She also informs on stopping her chemotherapy for her liver CA on her own choice for over a year, due to treatment "making [her] sick." Denies travel, undercook/old/spoiled foods. She denies having any urinary symptoms, rash. Patient is positive for Flu. Also, CT showing possible colitis. Patient is feeling better, counselled on tight glycemic control. Patient reports she will pickle maker her insulin from the pharmacy. Operations or Procedures CLINICAL HISTORY: Nausea vomiting history of colon cancer TECHNIQUE: CT of the abdomen and pelvis was performed without intravenous contrast. This exam was performed according to our departmental dose optimization program. Up-to-date CT equipment and radiation dose reduction techniques are utilized as appropriate. CTDI: [CTDIvol] DLP: 869.44 WID: COMPARISON: CT CT AB PEL WITH IV CON ONLY on DOS: 11/19/22 FINDINGS: Lower Thorax: Linear bibasilar scarring or atelectasis. Normal-sized heart with trace pericardial effusion. Liver and Biliary system: Mild hepatomegaly measuring 18 cm craniocaudal. Otherwise unremarkable. Spleen: Unremarkable. Adrenal Glands and Kidneys: Mild thickening of the bilateral adrenal glands. There are bilateral renal cysts. There is no hydronephrosis or nephrolithiasis. Pancreas and Retroperitoneum: Unremarkable. Aorta and Major Vessels: Aortoiliac vessels are normal in caliber containing [id number] calcified atherosclerotic plaque. Bowel, Mesentery and Peritoneal space: The small and large bowel loops are normal in caliber. There is a right ileocolonic anastomosis. Apparent mild wall thickening of a long segment of large bowel predominantly of the descending colon. There is no free air or loculated fluid collection. No mesenteric lymphadenopathy. Pelvis: Prior hysterectomy. Otherwise unremarkable. Abdominal wall and Osseous Structures: Prior midline laparotomy. No destructive osseous lesion. Minor lower thoracic and lumbar spondylosis. IMPRESSION: 1. Mild wall thickening of long segment large bowel predominantly in the descending colon which may be in part due to underdistention versus infectious or inflammatory colitis 2. Prior right ileocolonic anastomosis. No bowel obstruction. 3. Mild hepatomegaly. 4. Bilateral renal cysts. Condition at Discharge: Poor Final Diagnosis/Problems List # Influenza - TamiFlu # Acute Cystitis # Possible Colitis - Abx # h/o Stage IV Colon Cancer - F/u Dr. Hartman as outpatient # DM2 with hyperglycemia - A1c - Insulin 70/30 # Vitamin D Def- Supplement # Goals of care discussion >17 mins FULL CODE Discharge Disposition: Home Discharge Instruct/Medications Diet: Consistent carbohydrate Activity: Light activity Follow Up/Referral: Dr Marcos in 1 week Medications: see [facility] Discharge Statement: "Patient was advised to return to the ER or call 911 if any headaches, dizziness, shortness of breath, chest pain, abdominal pain, bleeding, fevers, or worsening of medical condition. Patient was counseled about treatment plan, medications, possible side effects, patientverbalized understanding. All questions were answered to the best of my ability. This discharge took greater then 30 minutes in planning, reviewing documentation, counseling the patient, and discussing with other team members." ASSESSMENT ASSESSMENT Assessment Date of Service: Mar 12, 2024 Billing Provider: NARESH MARCOS MD Common Visit Codes: 09977-XTK/OBS DISCH DAY >30min NARESH MARCOS MD Mar 12, 2024 09:18
[2024-03-12 10:56] VITALS: TEMP 36.8
[2024-03-12 13:00] VITALS: BP 137/86; PULSE 86; RESP 19; TEMP 97.9; O2SAT 98
== END 2024-03-12 13:30 | disposition home or self-care (01) | DRG 871 ==
LOC: ER 09:43 → EDBD 09:43 → OVERFLOW 16:53 → CENTRAL 22:18
PROVIDERS: ADMIT Student in an Organized Health Care Education/Training Program; ATTEND Internal Medicine
DX: A41.9 Sepsis, unspecified organism (principal); N17.0 Acute kidney failure with tubular necrosis; C18.9 Malignant neoplasm of colon, unspecified; C78.7 Secondary malignant neoplasm of liver and intrahepatic bile duct; N30.00 Acute cystitis without hematuria; Z20.822 Contact with and (suspected) exposure to COVID-19; E86.9 Volume depletion, unspecified; F17.210 Nicotine dependence, cigarettes, uncomplicated; I10 Essential (primary) hypertension; J45.909 Unspecified asthma, uncomplicated; E11.65 Type 2 diabetes mellitus with hyperglycemia; Z66 Do not resuscitate; E78.00 Pure hypercholesterolemia, unspecified; E55.9 Vitamin D deficiency, unspecified; J10.1 Influenza due to other identified influenza virus with other respiratory manifestations; K52.9 Noninfective gastroenteritis and colitis, unspecified; Z90.710 Acquired absence of both cervix and uterus; Z90.49 Acquired absence of other specified parts of digestive tract; Z86.73 Personal history of transient ischemic attack (TIA), and cerebral infarction without residual deficits; Z88.6 Allergy status to analgesic agent; Z82.49 Family history of ischemic heart disease and other diseases of the circulatory system; Z91.199 Patient's noncompliance with other medical treatment and regimen due to unspecified reason
CPT/HCPCS: 36415; 70450; 71045; 74176; 80048; 80053; 80307; 81001; 82306; 82550; 82962; 83036; 83605; 83735; 85007; 85025; 85027; 87086; 87426; 87804; 93005; G0378; J1815; J2405

== ENCOUNTER 2024-08-16 11:50 | Inpatient (IN) | payer MEDICARE, MEDICAID ==
[~2024-08-16] VITALS: Ht 177.8 cm; Wt 82.8 kg
[~2024-08-16 11:50] MED LIST changes: +AZIT-43 PO; -BACDST PO; -CEFD300C2 PO; -FLUC150T38 PO; +LISI-275 PO; +MET500T PO; -NYS15PW TOP; -NYST150P2 XX; -OXYC30TA PO; -PROC10TA6 PO; -PROM2SYP2 PO; +TAMIFLU PO; -TEMA15CA2 PO; +[UNRECOGNIZED DRUG - CODE]
--- NOTE | 2024-08-16 13:41 | ED.PDOC ---
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 Patient states she noticed a small boil on LT vaginal labia, this morning noticed boil has grown, causes pain with urination and with bowel movement. There is no drainage from boil. For the past 5 days, she has been experiencing thick white vaginal discharge with itchiness and discomfort, believes it is due to a yeast infection. No other symptoms or modifying factors present at this time. Denies urgency frequency dysuria or hematuria Denies abdominal pain/pelvic pain/nausea vomiting Denies fevers chills night sweats unintentional weight loss Denies drainage from boil Chief Complaint: Vaginal Discharge Time Seen by MD: 13:20 Reviewed Notes: Nurses Notes, Medications, Allergies Allergies: Coded Allergies: Ibuprofen (Verified Allergy, Severe, 06/11/20) Home Meds Active Scripts Oseltamivir Phosphate (Tamiflu) 75 Mg Cap, 75 MG PO Q12HR for 2 Days, #4 CAP Prov:NARESH AVILES MD 03/12/24 Metronidazole (Metronidazole) 500 Mg Tab, 500 MG PO Q8HR for 5 Days, #15 TAB Prov:NARESH AVILES MD 03/12/24 Azithromycin (Azithromycin) 250 Mg Tab, 250 MG PO DAILY for 1 Day, #1 TAB Prov:NARESH AVILES MD 03/12/24 Ergocalciferol (VITAMIN D 04766 UNIT) 50,[address] [place], [address] UNIT PO Q7D for 12 Days, #12 CAP Prov:NARESH AVILES MD 03/26/22 Insulin Glargine (Basaglar Kwikpen) 100 Unit/Ml Inj, 50 UNIT SC HS for 30 Days, #30 INJ Prov:NARESH AVILES MD 03/26/22 Metformin Hydrochloride (Metformin Hcl) 1,000 Mg Tab, 1 TAB PO BID for 30 Days, #60 TAB 5 Refills Prov:NARESH AVILES MD 03/26/22 Tramadol Hcl (Ultram) 50 Mg Tab, 1 TAB PO TID, #14 TAB Prov:MARCOS WATERS 01/25/22 Reported Medications Lancets (Onetouch Ultrasoft 2 Lanc) 1 Mis Mis, DAILY 03/08/24 Lisinopril (Lisinopril) 5 Mg Tab, 1 TAB PO 03/08/24 Sertraline Hcl (Sertraline Hcl) 50 Mg Tab, 50 MG PO DAILY 05/16/20 Lactulose (Lactulose) 10 Gm/15 Ml Linda, 30 ML PO DAILY 05/16/20 Megestrol Acetate (Appetite) (Megestrol Acetate) Unknown Strength Kelly, PO DAILY, ML 40 MG/ML SUSP, TAKE 5 ML PO BID 05/16/20 Ondansetron HCl (Ondansetron Hydrochloride) 8 Mg Tab, 8 MG PO Q8HP PRN for NAUSEA / VOMITING 05/16/20 Insulin NPH (Human) (Isophane) (Novolin N Flexpen) 100 Unit/Ml Inj, 12 UNIT SC TID 04/21/20 Atorvastatin Calcium (ATORVASTATIN CALCIUM) 40 Mg Tab, 1 TAB PO DAILY 04/21/20 Fenofibrate (FENOFIBRATE) 145 Mg Tab, 1 TAB PO DAILY 04/21/20 Metoprolol Succinate (Metoprolol Succinate Er) 25 Mg Tab, 25 MG PO BID 04/21/20 Empagliflozin (Jardiance) 10 Mg Tab, 10 MG PO QAM 04/21/20 Aspirin (ASPIRIN 81) 81 Mg Tab, 81 MG PO DAILY 04/21/20 Morphine Sulfate (Morphine Sulfate Cr) 30 Mg Tab, 1 TAB PO Q12H 04/21/20 Ferrous Sulfate (Ferrous Sulfate) 325 Mg Tab, 325 MG PO Q 2 DAYS 12/24/18 Gabapentin (Neurontin) 300 Mg Cap, 1 CAP PO BID 11/06/17 Information Source: Patient Mode of Arrival: Wheelchair Timing: Days Prehospital treatment: None Severity: Moderate Vaginal Discharge: White, Thick Vaginal Lesions: Other Vaginal Mass: None Sexual Activity: Neither Last Consensual [place]pton: None Control: None Blood Type: Unknown Associated Signs and Symptoms: Vaginal Discharge Past Medical History PAST MEDICAL HISTORY: Asthma, Cancer, CVA, DM, High Lipids, HTN Surgical History: Appendectomy, Cholecystectomy, Hysterectomy, Tonsillectomy GUITAR TECHNICIAN History: No Pertinent GUITAR TECHNICIAN History Family History Family History: Family hx of HTN Social History Smoker: Cigarettes Alcohol: Denies ETOH Use Drugs: Marijuana Lives In: Home All Other Systems: Reviewed and Negative (as per HPI) Physical Exam General Appearance: No Apparent Distress, Normal HEENT: Normal ENT Inspection, Pharynx Normal, TMs Normal Neck: Full Range of Motion, Non-Tender, Normal, Normal Inspection Respiratory: Chest Non-Tender, Lungs Clear, No Accessory Muscle Use, No Respiratory Distress, Normal Breath Sounds Cardiovascular: No Murmur, No Gallop, Regular Rate/Rhythm Breast Exam: Deferred Gastrointestinal: No Organomegaly, Non Tender, No Pulsatile Mass, Normal Bowel Sounds, Soft Genitalia: Deferred Pelvic: Mass (2 x 2 round cm abscess to the left labia. Surrounding erythema. TTP. 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 Was a procedure done?: No Differential Diagnosis (GUITAR TECHNICIAN) Vaginal Bleeding: UTI, Other Vaginal Discharge: Vaginitis - Candidal X-Ray, Labs, Meds, VS Vital Signs Date Time Temp Pulse Resp B/P (MAP) Pulse Ox O2 Delivery O2 Flow Rate FiO2 08/16/24 19:00 98.1 78 20 132/62 (85) 99 98.1 08/16/24 16:55 98.9 89 20 138/59 (85) 99 98.9 08/16/24 13:22 97.6 97 16 145/108 (120) 97 97.6 08/16/24 13:22 97 16 97 Room Air 08/16/24 12:06 97.6 97 16 125/93 (104) 97 97.6 Lab Test 08/16/24 15:02 08/16/24 13:54 08/16/24 13:50 08/16/24 13:39 Range/Units Lactic Acid Level 1.6 0.4-2.0 mmol/L Lipase 80 H 12-53 U/L Beta-Hydroxybutyric Acid 1.786 H < 0.4 mmol/L White Blood Count 6.3 4.4-10.8 10^3/uL Red Blood Count 4.33 4.0-5.20 10^6/uL Hemoglobin 14.1 12.2-16.2 g/dL Hematocrit 42.3 36.0-46.0 % Mean Corpuscular Volume 97.7 80.0-100.0 fL Mean Corpuscular Hemoglobin 32.7 H 28.0-32.0 pg Mean Corpuscular Hemoglobin Concent 33.4 32.0-36.0 g/dL Red Cell Distribution Width 12.9 11.8-14.3 % Platelet Count 214 140-450 10^3/uL Mean Platelet Volume 8.9 6.9-10.8 fL Neutrophils (%) (Auto) 72.8 37.0-80.0 % Lymphocytes (%) (Auto) 15.2 10.0-50.0 % Monocytes (%) (Auto) 8.8 0.0-12.0 % Eosinophils (%) (Auto) 2.3 0.0-7.0 % Basophils (%) (Auto) 0.9 0.0-2.0 % Neutrophils # (Auto) 4.6 1.6-8.6 10 ^3/uL Lymphocytes # (Auto) 1.0 0.4-5.4 10 ^3/uL Monocytes # (Auto) 0.6 0-1.3 10 ^3/uL Eosinophils # (Auto) 0.1 0-0.8 10 ^3/uL Basophils # (Auto) 0.1 0-0.2 10 ^3/uL Nucleated Red Blood Cells 0.1 % Sodium Level 131 L 136-145 mmol/L Potassium Level 4.7 3.5-5.1 mmol/L Chloride Level 100 98-107 mmol/L Carbon Dioxide Level 24 20-31 mmol/L Anion Gap 7 5-15 Blood Urea Nitrogen 19 9-23 mg/dL Creatinine 1.28 H 0.550-1.02 mg/dL Glomerular Filtration Rate Calc 48 >90 mL/min BUN/Creatinine Ratio 14.8 10.0-20.0 Serum Glucose 590 *H 74-106 mg/dL Calcium Level 10.2 8.7-10.4 mg/dL Vaginal WBC (Wet Prep) Few Vaginal RBC (Wet Prep) Rare Vaginal Epithelial Cells (Wet Prep) Few Vaginal Bacteria (Wet Prep) Few Vaginal Trichomonas (Wet Prep) Not present Vaginal Yeast (Wet Prep) Few Vaginal Clue Cells (Wet Prep) None seen Urine Color Light-yellow Yellow Urine Clarity Clear Clear Urine pH 5.0 5.0-9.0 Urine Specific [place] 1.027 1.001-1.035 Urine Protein Negative Negative Urine Ketones 1+ H Negative Urine Blood Trace H Negative /uL Urine Nitrite Negative Negative Urine Bilirubin Negative Negative Urine Urobilinogen Normal Negative mg/dL Urine Leukocyte Esterase 1+ Negative /uL Urine RBC 11 0 - 4 /hpf Urine Microscopic WBC 10 H 0-5 /HPF Urine Squamous Epithelial Cells Few <5 /hpf Urine Bacteria Few H None Seen /hpf Urine Glucose 4+ H Normal mg/dL Microbiology Date/Time Source Procedure Growth Status 08/16/24 13:39 Voided Urine Urine Culture - Preliminary Resulted X-Ray, Labs, Meds, VS Comment A 59-year-old female with a past medical history of liver cancer, diabetes insulin dependent, hypertension, asthma, CVA presents to the emergency department with a chief complaint of vaginal discharge onset 2 days. Patient arrives alert and oriented, ABC's intact, afebrile, vital signs stable, saturating well in room air Peripheral IV insertion+ labs were ordered. CBC was ordered to exclude anemia, blood loss, or infection. BMP was ordered to exclude electrolyte abnormalities, renal failure, dehydration, hyperglycemia Urinalysis was ordered to rule out UTI or hematuria. Wet mount ordered results neg. Glucose 590, Beta-Hydroxybutyric Acid 1.786 H, Sodium Level 131 L, Anion Gap 7, UA 10, Urine glucose 4 The patient presents with signs and symptoms consistent uncontrolled chris betes/hyperglcemia. The cause appears to be dietary / noncompliance / medication induced / infection. No evidence of infection. No evidence of [place] by history or physical. No other obvious cause found. Labs without evidence of anion gap or acidosis to suggest DKA. Patient given IVF, and insulin 10 U subcutaneous. Patient's history, physical and workup reveal that patient needs admission to the hospital for uncontrolled DM and labia abscess. In the ER the patient received IV fluids, insulin, fluconazole x1, Patient verbalized understanding of the above and is awaiting further evaluation by the admitting service. Additional MDM Review of External, Non-ED records: External records reviewed. Discussion with independent historian (EMS, family) history obtained from the patient/parents (if applicable) at bedside Chronic conditions affecting care: liver cancer, diabetes insulin dependent, hypertension, asthma, CVA Social determinants of health affecting care: smokes marijuana, cigarettes Consideration of admission (observation or admission): I considered escalation of care to admission for this patient, however given the reassuring workup, the patient is safe for outpatient management. Time of 1ST Reevaluation: 13:50 Reevaluation 1ST: Unchanged Patient Education/Counseling: Diagnosis, Treatment, Need For Follow Up Family Education/Counseling: No Family Present Departure 1 Departure Time of Disposition: 16:12 Impression: Primary Impression: Hyperglycemia Additional Impressions: Hyponatremia Labial abscess Disposition: ADMITTED INPATIENT Condition: Serious Critical Care Note Critical Care Time?: No Stability Stability form required: No Heart Score Heart Score: Heart Score Response (Comments) Value History N/A 0 EKG N/A 0 Age N/A 0 Risk Factors N/A 0 Troponin N/A 0 Total 0 I personally scribed for GIOVANNY OWENS NP ([email or web address]) on 08/16/24 at 13:41. Electronically submitted by Jaylin Merritt ([email or web address]). GIOVANNY OWENS NP Aug 16, 2024 13:41
[2024-08-16 14:14] LABS: Basophils # (auto) 0.1 10 ^3/uL (0-0.2); Basophils % (auto) 0.9 % (0.0-2.0); Chloride 100 mmol/L (98-107); Eosinophils # (auto) 0.1 10 ^3/uL (0-0.8); Eosinophils % (auto) 2.3 % (0.0-7.0); Hematocrit 42.3 % (36.0-46.0); Hemoglobin 14.1 g/dL (12.2-16.2); Lymphocytes % (auto) 15.2 % (10.0-50.0); Mean Corpuscular Hemoglobin 32.7 pg (28.0-32.0); Mean Corpuscular Hgb Conc. 33.4 g/dL (32.0-36.0); Mean Corpuscular Volume 97.7 fL (80.0-100.0); Monocytes # (auto) 0.6 10 ^3/uL (0-1.3); Monocytes % (auto) 8.8 % (0.0-12.0); Neutrophils # (auto) 4.6 10 ^3/uL (1.6-8.6); Neutrophils % (auto) 72.8 % (37.0-80.0); Nucleated Red Blood Cells % 0.1 %; Platelet Count (auto) 214 10^3/uL (140-450); Potassium 4.7 mmol/L (3.5-5.1); Red Blood Cells 4.33 10^6/uL (4.0-5.20); Red Cell Distribution Width 12.9 % (11.8-14.3); White Blood Cell 6.3 10^3/uL (4.4-10.8)
[2024-08-16 14:15] LABS: Anion Gap 7 (5-15); Calcium 10.2 mg/dL (8.7-10.4); Carbon Dioxide 24 mmol/L (20-31)
[2024-08-16 14:17] LABS: Sodium 131 mmol/L (136-145)
[2024-08-16 14:20] LABS: BUN/Creatinine Ratio 14.8 (10.0-20.0); Blood Urea Nitrogen 19 mg/dL (9-23)
[2024-08-16 14:24] LABS: Glucose 590 mg/dL (74-106)
[2024-08-16 14:49] LABS: Vaginal Bacteria Few; Vaginal Clue Cells None Seen; Vaginal Epithelial Cells Few; Vaginal Trichomonas Not Present
[2024-08-16 14:52] LABS: Urine Bacteria FEW /hpf (None Seen); Urine Blood TRACE /uL (Negative); Urine Clarity Clear (Clear); Urine Color Light-Yellow (Yellow); Urine Protein, UAD Negative (Negative); Urine Specific Gravity 1.027 (1.001-1.035); Urine Squamous Epithelial Cell FEW /hpf (<5); Urine Urobilinogen Normal (Negative); Urine WBC 10 /HPF (0-5)
[2024-08-16] MEDS: InsuLIN REG 1unit/0.01ml Soln (100units/ml) SC ONE (15:10)
[2024-08-16] MEDS: SODIUM CHLORIDE 0.9% 1,000 ML IV ONE (15:11)
[2024-08-16] MEDS: cefTRIAXone SOD 1,000 MG VL IM ONE (15:28)
[2024-08-16] MEDS: FLUCONAZOLE 100 MG TAB PO ONE (15:28)
--- NOTE | 2024-08-16 15:51 | DVH ---
Exam: US PELVIC Date: 08/16/2024 03:15 PM Clinical History: Left labia abscess Comparison: None Findings: Targeted sonographic evaluation of the soft tissues of the left labia was obtained utilizing grayscal e and color Doppler imaging. There is a 2.5 x 2 x 2 cm nodule in the left labia, with diffuse phlegmonous changes, suggestive of a n abscess. IMPRESSION: There is a 2.5 x 2 x 2 cm nodule in the left labia, with diffuse phlegmonous changes, suggestive of a n abscess. END IMPRESSION:
[2024-08-16] MEDS ORDERED: DOCUSATE SOD 100 MG CAP PO PRN (19:15)
[2024-08-16] MEDS ORDERED: hydrALAZINE HCL 20 MG/ML VL IV PRN (19:15)
[2024-08-16] MEDS ORDERED: DEXTROSE (50%) 50ML SYRG IV PRN (19:15)
[2024-08-16] MEDS ORDERED: ACETAMINOPHEN 325 MG TAB PO PRN (19:15)
[2024-08-16] MEDS ORDERED: SODIUM CHLORIDE 0.9% 1,000 ML IV SCH (19:15)
--- NOTE | 2024-08-16 19:52 | DVHHP2 ---
History of Present Illness Reason for Visit: Labial abscess History of Present Illness The patient is a 59-year-old female with past medical history of anemia, cancer, CVA, DM, hyperlipidemia, and hypertension who presented to [facility] ED with complaint of vaginal discharge for the past 2 days. Patient reports she noticed a small boil on left vaginal labia this morning which boil has grown large, causes pain with urination and with bowel movement. She has been experiencing thick white vaginal discharge with itchiness and discomfort, believes it is due to a yeast infection. Patient was seen and evaluated in the ED, laboratory data shows WBC 6.3, platelets 214, sodium 131, potassium 4.7, BUN 19, creatinine 1.28, glucose 590, lipase 80, acetone 1.786, blood pressure 138/89, heart rate 89, temperature 98.9 F, O2 saturation 99% on room air. Pelvic ultrasound revealing a 2.5 x 2.2 cm nodules in the left labia with diffuse phlegmonous changes, suggestive of an abscess. Urinalysis positive for urinary tract infection. Patient was started on IV antibiotic regimen Rocephin, please see medication orders section in the computer. On my assessment, patient denied chest pain, no headache, no dizziness, no shortness of breath, no diaphoresis, no nausea, no vomiting, no fever, no chills. Patient was admitted for further evaluation and medical management. Past Medical History Asthma, Liver cancer, CVA, DM, High Lipids, HTN, Depression Past Surgical History Appendectomy, Cholecystectomy, Hysterectomy, Tonsillectomy Family History Reviewed, noncontributory to the management of this case. Past Social History The patient lives at home, smokes cigarettes, denies ETOH abuse, uses marijuana. Review of Systems Constitutional: No: Fever, Chills, Sweats, Weakness, Malaise, Other Eyes: No: Pain, Vision change, Conjunctivae inflammation, Eyelid inflammation, Other, Redness ENT: No: Ear pain, Ear discharge, Nose pain, Nose discharge, Nose congestion, Mouth pain, Mouth swelling, Throat pain, Throat swelling, Other Respiratory: No: Cough, Dry, Shortness of breath, SOB with excertion, Wheezing, Hemoptysis, Pleuritic Pain, Sputum, Wheezing, Other Cardiovascular: No: Chest Pain, Palpitations, Orthopnea, Paroxysmal Noc. Dyspnea, Edema, Lt Headedness, Other Gastrointestinal: No: Nausea, Vomiting, Abdominal Pain, Diarrhea, Constipation, Melena, Hematochezia, Other Genitourinary: No Dysuria, No Frequency, No Incontinence, No Hematuria, No Retention; Other (Vaginal discharge/pain) Musculoskeletal: No: other, neck pain, shoulder pain, arm pain, back pain, hand pain, leg pain, foot pain Skin: No: Rash, Lesions, Jaundice, Bruising, Other Neurological: No: Weakness, Numbness, Incoordination, Change in speech, Confusion, Seizures, Other Allergies: Coded Allergies: Ibuprofen (Verified Allergy, Severe, 06/11/20) Medications Current Medications Medications Dose Ordered Sig/Nicholas Route Start Time Stop Time Status Last Admin Dose Admin Ceftriaxone Sodium 50 ml @ 100 mls/hr DAILY@09 IV 08/17/24 09:00 Aspirin 81 mg DAILY PO 08/17/24 10:00 UNV Atorvastatin Calcium 20 mg HS PO 08/16/24 22:00 Fluconazole 100 ml @ 100 mls/hr DAILY IV 08/17/24 10:00 Metoprolol Tartrate 25 mg BID PO 08/16/24 22:00 Hydralazine HCl 10 mg Q6HP PRN IV 08/16/24 19:15 Diagnostic Test (Pha) 1 strip IQ4HR 08/16/24 20:00 Insulin Human Regular IQ4HR SC 08/16/24 20:00 Dextrose 50 ml UD PRN IV 08/16/24 19:15 Sodium Chloride 1,000 ml @ 60 mls/hr [id number] IV 08/16/24 19:15 Acetaminophen/ Hydrocodone Bitart 1 tab Q4HP PRN PO 08/16/24 19:15 Ondansetron HCl 4 mg Q4HP PRN IV 08/16/24 19:15 Docusate Sodium 100 mg BIDPRN PRN PO 08/16/24 19:15 Acetaminophen 650 mg Q6HP PRN PO 08/16/24 19:15 Sertraline HCl 50 mg DAILY PO 08/17/24 10:00 Exam Vital Signs Vital Signs Date Time Temp Pulse Resp B/P (MAP) Pulse Ox O2 Delivery O2 Flow Rate FiO2 08/16/24 19:00 98.1 78 20 132/62 (85) 99 98.1 08/16/24 13:22 Room Air General Appearance: Alert, Oriented X3, Cooperative, No acute distress HEENT: Atraumatic, PERRLA, EOMI, Mucous membr. moist/pink Respiratory: Clear to auscultation, Normal air movement Cardiovascular: Regular rate, Normal S1, Normal S2 Abdominal: Normal bowel sounds, Soft, No tenderness, No hepatospenomegaly, No masses Extremities: No clubbing, No cyanosis, No edema, Normal pulses, No tenderness/swelling Skin: No rashes, No breakdown, No significant lesion Neuro: Normal gait, Normal speech, Strength at 5/5 X4 ext, Normal tone, Sensation intact, Cranial nerves 3-12 NL, Reflexes 2+ Psych/Mental Status: Mental status NL, Mood NL Labs/Xrays Labs Test 08/16/24 15:02 08/16/24 13:54 08/16/24 13:50 08/16/24 13:39 Range/Units Lactic Acid Level 1.6 0.4-2.0 mmol/L Lipase 80 H 12-53 U/L Beta-Hydroxybutyric Acid 1.786 H < 0.4 mmol/L White Blood Count 6.3 4.4-10.8 10^3/uL Red Blood Count 4.33 4.0-5.20 10^6/uL Hemoglobin 14.1 12.2-16.2 g/dL Hematocrit 42.3 36.0-46.0 % Mean Corpuscular Volume 97.7 80.0-100.0 fL Mean Corpuscular Hemoglobin 32.7 H 28.0-32.0 pg Mean Corpuscular Hemoglobin Concent 33.4 32.0-36.0 g/dL Red Cell Distribution Width 12.9 11.8-14.3 % Platelet Count 214 140-450 10^3/uL Mean Platelet Volume 8.9 6.9-10.8 fL Neutrophils (%) (Auto) 72.8 37.0-80.0 % Lymphocytes (%) (Auto) 15.2 10.0-50.0 % Monocytes (%) (Auto) 8.8 0.0-12.0 % Eosinophils (%) (Auto) 2.3 0.0-7.0 % Basophils (%) (Auto) 0.9 0.0-2.0 % Neutrophils # (Auto) 4.6 1.6-8.6 10 ^3/uL Lymphocytes # (Auto) 1.0 0.4-5.4 10 ^3/uL Monocytes # (Auto) 0.6 0-1.3 10 ^3/uL Eosinophils # (Auto) 0.1 0-0.8 10 ^3/uL Basophils # (Auto) 0.1 0-0.2 10 ^3/uL Nucleated Red Blood Cells 0.1 % Sodium Level 131 L 136-145 mmol/L Potassium Level 4.7 3.5-5.1 mmol/L Chloride Level 100 98-107 mmol/L Carbon Dioxide Level 24 20-31 mmol/L Anion Gap 7 5-15 Blood Urea Nitrogen 19 9-23 mg/dL Creatinine 1.28 H 0.550-1.02 mg/dL Glomerular Filtration Rate Calc 48 >90 mL/min BUN/Creatinine Ratio 14.8 10.0-20.0 Serum Glucose 590 *H 74-106 mg/dL Calcium Level 10.2 8.7-10.4 mg/dL Vaginal WBC (Wet Prep) Few Vaginal RBC (Wet Prep) Rare Vaginal Epithelial Cells (Wet Prep) Few Vaginal Bacteria (Wet Prep) Few Vaginal Trichomonas (Wet Prep) Not present Vaginal Yeast (Wet Prep) Few Vaginal Clue Cells (Wet Prep) None seen Urine Color Light-yellow Yellow Urine Clarity Clear Clear Urine pH 5.0 5.0-9.0 Urine Specific [place] 1.027 1.001-1.035 Urine Protein Negative Negative Urine Ketones 1+ H Negative Urine Blood Trace H Negative /uL Urine Nitrite Negative Negative Urine Bilirubin Negative Negative Urine Urobilinogen Normal Negative mg/dL Urine Leukocyte Esterase 1+ Negative /uL Urine RBC 11 0 - 4 /hpf Urine Microscopic WBC 10 H 0-5 /HPF Urine Squamous Epithelial Cells Few <5 /hpf Urine Bacteria Few H None Seen /hpf Urine Glucose 4+ H Normal mg/dL PATIENT: KARLA ASHLEY ACCT: [id number] UNIT: [id number] : 1965 LOC: ER ROOM / BED: / AGE / SEX: 59 / F ADM STATUS: REG ER SERVICE 1509 ORDERING PHYSICIAN: GIOVANNY OWENS NP PROCEDURE(s): PELUS - PELVIC REASON: Left labia abscess ORDER NUMBER(s): [id number], ACCESSION NUMBER(s): [id number] Exam: US PELVIC Date: 08/16/2024 03:15 PM Clinical History: Left labia abscess Comparison: None Findings: Targeted sonographic evaluation of the soft tissues of the left labia was obtained utilizing grayscale and color Doppler imaging. There is a 2.5 x 2 x 2 cm nodule in the left labia, with diffuse phlegmonous changes, suggestive of an abscess. IMPRESSION: There is a 2.5 x 2 x 2 cm nodule in the left labia, with diffuse phlegmonous changes, suggestive of an abscess. Assessment/Plan Assessment/Plan Labial abscess Hyponatremia Labial pain Generalized weakness Diabetes mellitus with hyperglycemia Plan 1. Admit to telemetry unit 2. Breathing treatment 3. Pain control management 4. IV antibiotic management 5. Management of fluids and electrolytes 6. Consultation for hospitalist 7. Diagnostic test pelvic ultrasound 8. DVT prophylaxis-on SCDs 9. Repeat labs CBC, CMP in a.m. 10. Home medication reviewed and reconciled 11. Continue with current medical management 12. Treatment plan discussed with patient and RN. Patient verbalized understanding. Plan discussed with: Patient, Other (RN) My Orders Orders - MELISSA RAMACHANDRAN DNP Procedure Category Date Status Time Urine Bacterial CHAPIN[place]O 08/16/24 In Process Culture 19:11 Consistent DIET 08/17/24 Transmitted Carb(Ccho)Diabetes Breakfast Ceftriaxone 1gm/50ml PHA 08/17/24 In Process D5w (Rocephin) 09:00 Aspirin Tablet PHA 08/17/24 Logged 10:00 Atorvastatin (Lipitor) PHA 08/16/24 In Process 22:00 Fluconazole PHA 08/17/24 In Process 200mg/100ml (Diflucan 10:00 Metoprolol Tartrate PHA 08/16/24 In Process Tablet (Lopressor Ta 22:00 Hydralazine Injection PHA 08/16/24 In Process (Apresoline Inject 19:15 Glucose Blood PHA 08/16/24 In Process (Accu-Chek Comfort 20:00 Insulin R (Human) PHA 08/16/24 In Process (Insulin R) 20:00 Dextrose 50% Syringe PHA 08/16/24 In Process 19:15 Allergies LINNEA 08/16/24 In Process 19:11 Code Status CODE 08/16/24 Transmitted 19:11 Sodium Chloride 0.9% PHA 08/16/24 In Process 19:15 Oxygen Per Hour RT 08/16/24 Transmitted 19:11 Hydrocodone-Acet PHA 08/16/24 In Process 5/325mg Tab ([place] 19:15 Ondansetron Hcl PHA 08/16/24 In Process (Zofran) 19:15 Docusate Sodium PHA 08/16/24 In Process Capsule ([place] 19:15 Complete Blood Count LAB 08/17/24 Verified 04:00 Comprehensive LAB 08/17/24 Verified Metabolic Panel 04:00 Condition: Serious LINNEA 08/16/24 In Process 19:11 Acetaminophen Tablet PHA 08/16/24 In Process (Tylenol Tablet) 19:15 Bedrest With Bathroom LINNEA 08/16/24 In Process Privileg 19:11 Sequential LINNEA 08/16/24 In Process Compression Device Sertraline Hcl PHA 08/17/24 In Process (Zoloft) 10:00 Problem List: (1) Labial abscess (2) Hyponatremia (3) Labial pain (4) Generalized weakness (5) Diabetes mellitus with hyperglycemia Date of Service: Aug 16, 2024 Billing Provider: MELISSA RAMACHANDRAN DNP Common Visit Codes: [id number] INP/OBS CARE (HIGH) MELISSA RAMACHANDRAN DNP Aug 16, 2024 19:52
[2024-08-16] MEDS ORDERED: MORPHINE SULFATE INJ 2 MG/ml SYRG IV PRN (20:00)
[2024-08-16] MEDS ORDERED: NITROGLYCERIN 0.4 MG SL TAB SL PRN (20:00)
[2024-08-16] MEDS: InsuLIN REG 1unit/0.01ml Soln (100units/ml) SC SCH (20:49)
[2024-08-16] MEDS: ACCU-CHEK COMFORT CURVE STRIP VI SCH (20:49)
[2024-08-16] MEDS: METOPROLOL TARTRATE 25 MG TAB PO SCH (22:09)
[2024-08-16] MEDS: ATORVASTATIN 20 MG TAB PO SCH (22:10)
[2024-08-16] MEDS: MORPHINE SULFATE 4 MG/ML SYR/VIAL ONE (22:21)
[2024-08-16] MEDS: MORPHINE SULFATE INJ 2 MG/ml SYRG IV PRN (22:23)
[2024-08-16] MEDS: SODIUM CHLORIDE 0.9% 1,000 ML IV SCH (22:37)
[2024-08-16 22:46] VITALS: BP 143/94; PULSE 91; RESP 16; TEMP 98.7; O2SAT 97
[2024-08-17 01:00] VITALS: BP 143/94; PULSE 91; RESP 16; TEMP 98.7; O2SAT 97
[2024-08-17] MEDS: ONDANSETRON HCL 4 MG/2 ML VIAL IV PRN (04:52)
[2024-08-17] MEDS: MORPHINE SULFATE 4 MG/ML SYR/VIAL IV PRN (04:52)
[2024-08-17 06:03] LABS: Basophils # (auto) 0.1 10 ^3/uL (0-0.2); Eosinophils # (auto) 0.2 10 ^3/uL (0-0.8); Eosinophils % (auto) 1.9 % (0.0-7.0); Hematocrit 39.6 % (36.0-46.0); Hemoglobin 13.5 g/dL (12.2-16.2); Lymphocytes # (auto) 2.3 10 ^3/uL (0.4-5.4); Lymphocytes % (auto) 25.2 % (10.0-50.0); Mean Corpuscular Hemoglobin 32.8 pg (28.0-32.0); Mean Corpuscular Hgb Conc. 34.2 g/dL (32.0-36.0); Mean Corpuscular Volume 95.7 fL (80.0-100.0); Monocytes # (auto) 0.8 10 ^3/uL (0-1.3); Monocytes % (auto) 8.7 % (0.0-12.0); Neutrophils # (auto) 5.7 10 ^3/uL (1.6-8.6); Neutrophils % (auto) 63.2 % (37.0-80.0); Platelet Count (auto) 222 10^3/uL (140-450); Red Blood Cells 4.14 10^6/uL (4.0-5.20); Red Cell Distribution Width 13.3 % (11.8-14.3)
[2024-08-17 06:12] LABS: Alanine Aminotransferase 18 U/L (7-40); Albumin 4.2 g/dL (3.2-4.8); Alkaline Phosphatase 98 U/L (46-116); Anion Gap 11 (5-15); Aspartate Aminotransferase 26 U/L (13-40); BUN/Creatinine Ratio 18.2 (10.0-20.0); Blood Urea Nitrogen 16 mg/dL (9-23); Calcium 9.6 mg/dL (8.7-10.4); Carbon Dioxide 24 mmol/L (20-31); Chloride 104 mmol/L (98-107); Sodium 139 mmol/L (136-145); Total Protein 6.8 g/dL (5.7-8.2)
[2024-08-17 06:25] LABS: Bilirubin, Total 0.3 mg/dL (0.2-1.0); Glucose 120 mg/dL (74-106); Potassium 3.3 mmol/L (3.5-5.1)
[2024-08-17] MEDS: cefTRIAXone 1GM/50ML D5W 50 ML IV SCH (08:51)
[2024-08-17 09:00] VITALS: BP 120/76; PULSE 86; RESP 14; TEMP 97.6; O2SAT 98
[2024-08-17] MEDS ORDERED: ASPirin 81 mg TAB PO SCH (10:00)
[2024-08-17] MEDS: FLUCONAZOLE 200MG/100ML 100 ML IV SCH (10:30)
[2024-08-17] MEDS: SERTRALINE HCL 50 MG TAB PO SCH (10:30)
[2024-08-17] MEDS: POTASSIUM CHL 20 Meq TABLET PO ONE (10:32)
[2024-08-17 14:00] VITALS: BP 111/75; PULSE 79; RESP 12; TEMP 98.1; O2SAT 95
[2024-08-17] MEDS ORDERED: DEXTROSE (50%) 50ML SYRG IV PRN (14:30)
--- NOTE | 2024-08-17 14:31 | DVHPN2 ---
Subjective Patient continues to report having labial pain. Reviewed: Care Plan, H&P, Labs Changes from previous H/P or p: No Changes General: Per HPI Eyes: No Pain, No Vision change, No Conjunctivae inflammation, No Eyelid inflammation, No Other, No Redness ENT: No Ear pain, No Ear discharge, No Nose pain, No Nose discharge, No Nose congestion, No Mouth pain, No Mouth swelling, No Throat pain, No Throat swelling, No Other Cardiovascular: No Chest Pain, No Palpitations, No Orthopnea, No Paroxysmal Noc. Dyspnea, No Edema, No Lt Headedness, No Other Respiratory: No Cough, No Dry, No Shortness of breath, No SOB with excertion, No Wheezing, No Hemoptysis, No Pleuritic Pain, No Sputum, No Other Gastrointestinal: No Nausea, No Vomiting, No Abdominal Pain, No Diarrhea, No Constipation, No Melena, No Hematochezia, No Other Genitourinary: No Dysuria, No Frequency, No Incontinence, No Hematuria, No Retention; Other (Vaginal discharge/pain) Musculoskeletal: No other, No neck pain, No shoulder pain, No arm pain, No back pain, No hand pain, No leg pain, No foot pain Skin: No Rash, No Lesions, No Jaundice, No Bruising, No Other Objective Vitals Vital Signs Date Time Temp Pulse Resp B/P (MAP) Pulse Ox O2 Delivery O2 Flow Rate FiO2 08/17/24 10:55 86 14 120/76 08/17/24 09:00 97.6 98 97.6 08/17/24 08:29 Room Air* 0 21 General Appearance: Alert, Oriented X3, Cooperative, mild distress HEENT: Atraumatic, PERRLA Cardiovascular: Normal S1, Normal S2 Abdomen: Normal bowel sounds, Soft, No tenderness, No hepatospenomegaly Musculoskeletal: Normal sensory function, Normal motor function Skin: Dry, Intact Psych/Mental Status: Mental status NL, Mood NL Medications Current Medications Medications Dose Ordered Sig/Nicholas Route Start Time Stop Time Status Last Admin Dose Admin Ceftriaxone Sodium 50 ml @ 100 mls/hr DAILY@09 IV 08/17/24 09:00 08/17/24 08:51 100 MLS/HR Atorvastatin Calcium 20 mg HS PO 08/16/24 22:00 08/16/24 22:10 20 MG Fluconazole 100 ml @ 100 mls/hr DAILY IV 08/17/24 10:00 08/17/24 10:30 100 MLS/HR Metoprolol Tartrate 25 mg BID PO 08/16/24 22:00 08/17/24 10:31 25 MG Hydralazine HCl 10 mg Q6HP PRN IV 08/16/24 19:15 Diagnostic Test (Pha) 1 strip IQ4HR 08/16/24 20:00 08/17/24 11:38 1 STRIP Insulin Human Regular IQ4HR SC 08/16/24 20:00 08/17/24 11:39 16 UNITS Dextrose 50 ml UD PRN IV 08/16/24 19:15 Acetaminophen/ Hydrocodone Bitart 1 tab Q4HP PRN PO 08/16/24 19:15 Ondansetron HCl 4 mg Q4HP PRN IV 08/16/24 19:15 08/17/24 04:52 4 MG Docusate Sodium 100 mg BIDPRN PRN PO 08/16/24 19:15 Acetaminophen 650 mg Q6HP PRN PO 08/16/24 19:15 Sertraline HCl 50 mg DAILY PO 08/17/24 10:00 08/17/24 10:30 50 MG Nitroglycerin 0.4 mg Q5MINP PRN SL 08/16/24 20:00 Sodium Chloride 1,000 ml @ 100 mls/hr Q10H IV 08/16/24 21:45 08/17/24 08:51 100 MLS/HR Morphine Sulfate 2 mg Q30M PRN IV 08/17/24 04:45 Morphine Sulfate 2 mg Q4HPRN PRN IV 08/17/24 04:45 08/17/24 10:55 2 MG Laboratory Results Laboratory Tests 08/17/24 04:32 Chemistry Test 08/17/24 04:32 Albumin 4.2 g/dL (3.2-4.8) Calcium Level 9.6 mg/dL (8.7-10.4) Total Protein 6.8 g/dL (5.7-8.2) Lipid panel Test 08/16/24 15:02 Lipase 80 U/L (12-53) H LFT Test 08/17/24 04:32 Alanine Aminotransferase (ALT) 18 U/L (7-40) Alkaline Phosphatase 98 U/L (46-116) Aspartate Amino Transferase (AST) 26 U/L (13-40) Total Bilirubin 0.3 mg/dL (0.2-1.0) Urinalysis Test 08/16/24 13:39 Urine Color Light-yellow (Yellow) Urine Clarity Clear (Clear) Urine pH 5.0 (5.0-9.0) Urine Specific [place] 1.027 (1.001-1.035) Urine Protein Negative (Negative) Urine Ketones 1+ (Negative) H Urine Blood Trace /uL (Negative) H Urine Nitrite Negative (Negative) Urine Bilirubin Negative (Negative) Urine Urobilinogen Normal mg/dL (Negative) Urine Leukocyte Esterase 1+ /uL (Negative) Urine RBC 11 /hpf (0 - 4) Urine Microscopic WBC 10 /HPF (0-5) H Urine Squamous Epithelial Cells Few /hpf (<5) Urine Bacteria Few /hpf (None Seen) H Urine Glucose 4+ mg/dL (Normal) H Microbiology Microbiology Date/Time Source Procedure Growth Status 08/16/24 13:39 Voided Urine Urine Culture - Preliminary Resulted Labs and/or images reviewed: Labs reviewed by me, Image(s) reviewed by me Assessment/Plan Assessment/Plan Impression: -labile abscess -diabetes mellitus, uncontrolled -complicated cystitis -obesity -hypokalemia -history of CVA -hypertension -dyslipidemia Plan: -OBGYN consultation for assessment of the labial abscess for possible I and D -continue antibiotic therapy with Rocephin, Diflucan for vaginal yeast infection -potassium replacement -regular insulin sliding scale. Add Lantus 20 units q.h.s. -continue antihypertensives -repeat labs in a.m. Total time spent with patient discussing and formulating plan of care: 35 minutes. This medical document was created using an electronic medical record system with [employer] dictation system. Although this document has been carefully reviewed, there may still be some phonetic and typographical errors. These areas are purely typographical due to imperfections of the software programs, and do not reflect any compromise in the patient's medical care. Plan discussed with: Patient, Other (RN) My Orders Orders - PALLAVI CAREY NP Procedure Category Date Status Time * Sidewalk Repairer Consultation CONS 08/17/24 Transmitted 13:33 Date of Service: Aug 17, 2024 Billing Provider: PALLAVI CAREY NP Common Visit Codes: [id number] INP/OBS CARE(HIGH) PALLAVI CAREY WING MAILER MACHINE OPERATOR Aug 17, 2024 14:31
[2024-08-17 15:58] VITALS: PULSE 78; RESP 18; O2SAT 100
[2024-08-17] MEDS: HYDROcodone-ACET 5/325MG TAB PO PRN (17:02)
[2024-08-17] MEDS: ACCU-CHEK COMFORT CURVE STRIP VI SCH (17:15)
[2024-08-17] MEDS: InsuLIN REG 1unit/0.01ml Soln (100units/ml) SC SCH ×2 (17:26→22:39)
[2024-08-17 21:00] VITALS: BP 116/66; PULSE 86; RESP 18; TEMP 98.2; O2SAT 98
[2024-08-17] MEDS: INSULIN LANTUS (GLARGINE) 1 /0.01ml (100units/ml) SC SCH (22:37)
[2024-08-18 01:00] VITALS: BP 128/83; PULSE 88; RESP 18; TEMP 98; O2SAT 98
[2024-08-18 05:00] VITALS: BP 150/87; PULSE 86; RESP 18; TEMP 97.8; O2SAT 99
[2024-08-18] MEDS ORDERED: LIDOCAINE 2%HCL (LOCAL ANESTH.) INJ 10ml MDV IJ PRN (07:00)
[2024-08-18 09:00] VITALS: BP 118/64; PULSE 76; RESP 16; TEMP 97.9; O2SAT 97
[2024-08-18] MEDS: KETOROLAC TROMETH 30 MG/ML 1ML VIAL IV PRN (09:13)
[2024-08-18] MEDS: FLUCONAZOLE 100 MG TAB PO ONE (12:13)
--- NOTE | 2024-08-18 12:34 | DVHINCON2 ---
Date of service: Aug 18, 2024 Referring Physician hospitalist Reason for Consultation vulvalar abscess History of Present Illness pt is admitted for uncontrolled dm and vulvar abscess,pt states her dm is not well controlled Past Medical History dm,htn,cva,asthma,liver ca,depression Past Surgical History t and a ,cholecystectomy,hysterectomy Family History na Social History na Patient Family History: FH: throat cancer Allergies: Coded Allergies: Ibuprofen (Verified Allergy, Severe, 06/11/20) Home Meds Active Scripts Oseltamivir Phosphate (Tamiflu) 75 Mg Cap, 75 MG PO Q12HR for 2 Days, #4 CAP Prov:NARESH AVILES MD 03/12/24 Metronidazole (Metronidazole) 500 Mg Tab, 500 MG PO Q8HR for 5 Days, #15 TAB Prov:NARESH AVILES MD 03/12/24 Azithromycin (Azithromycin) 250 Mg Tab, 250 MG PO DAILY for 1 Day, #1 TAB Prov:NARESH AVILES MD 03/12/24 Ergocalciferol (VITAMIN D 24907 UNIT) 50,000 [place], [address] UNIT PO Q7D for 12 Days, #12 CAP Prov:NARESH AVILES MD 03/26/22 Insulin Glargine (Basaglar Kwikpen) 100 Unit/Ml Inj, 50 UNIT SC HS for 30 Days, #30 INJ Prov:NARESH AVILES MD 03/26/22 Metformin Hydrochloride (Metformin Hcl) 1,000 Mg Tab, 1 TAB PO BID for 30 Days, #60 TAB 5 Refills Prov:NARESH AVILES MD 03/26/22 Tramadol Hcl (Ultram) 50 Mg Tab, 1 TAB PO TID, #14 TAB Prov:MARCOS WATERS 01/25/22 Reported Medications Lancets (Onetouch Ultrasoft 2 Lanc) 1 Mis Mis, DAILY 03/08/24 Lisinopril (Lisinopril) 5 Mg Tab, 1 TAB PO 03/08/24 Sertraline Hcl (Sertraline Hcl) 50 Mg Tab, 50 MG PO DAILY 05/16/20 Lactulose (Lactulose) 10 Gm/15 Ml Linda, 30 ML PO DAILY 05/16/20 Megestrol Acetate (Appetite) (Megestrol Acetate) Unknown Strength Kelly, PO DAILY, ML 40 MG/ML SUSP, TAKE 5 ML PO BID 05/16/20 Ondansetron HCl (Ondansetron Hydrochloride) 8 Mg Tab, 8 MG PO Q8HP PRN for NAUSEA / VOMITING 05/16/20 Insulin NPH (Human) (Isophane) (Novolin N Flexpen) 100 Unit/Ml Inj, 12 UNIT SC TID 04/21/20 Atorvastatin Calcium (ATORVASTATIN CALCIUM) 40 Mg Tab, 1 TAB PO DAILY 04/21/20 Fenofibrate (FENOFIBRATE) 145 Mg Tab, 1 TAB PO DAILY 04/21/20 Metoprolol Succinate (Metoprolol Succinate Er) 25 Mg Tab, 25 MG PO BID 04/21/20 Empagliflozin (Jardiance) 10 Mg Tab, 10 MG PO QAM 04/21/20 Aspirin (ASPIRIN 81) 81 Mg Tab, 81 MG PO DAILY 04/21/20 Morphine Sulfate (Morphine Sulfate Cr) 30 Mg Tab, 1 TAB PO Q12H 04/21/20 Ferrous Sulfate (Ferrous Sulfate) 325 Mg Tab, 325 MG PO Q 2 DAYS 12/24/18 Gabapentin (Neurontin) 300 Mg Cap, 1 CAP PO BID 11/06/17 Current Medications Current Medications Medications (Trade) Dose Ordered Sig/Nicholas Route PRN Reason Start Time Stop Time Status Last Admin Insulin Glargine (Lantus) 20 units HS SC 08/17/24 22:00 08/17/24 22:37 Diagnostic Test (Pha) (Accu-Chek Comfort Curve T) 1 strip ACHS 08/17/24 17:00 08/18/24 06:14 Insulin Human Regular (InsuLIN R) HS SC 08/17/24 22:00 08/17/24 22:39 Insulin Human Regular (InsuLIN R) AC SC 08/17/24 17:00 08/18/24 06:15 Dextrose 50 ml UD PRN IV Blood Sugar LESS THAN 60 08/17/24 14:30 Ketorolac Tromethamine (Toradol Injection) 30 mg Q6HPRN PRN IV MODERATE PAIN (4-6 PAIN SCALE) 08/17/24 23:00 08/22/24 22:59 08/18/24 09:13 Lidocaine HCl (Xylocaine) 10 ml ONCE PRN IJ SEVERE PAIN (7-10 PAIN SCALE) 08/18/24 07:00 Clindamycin Phosphate 50 ml @ 50 mls/hr Q8HR IV 08/18/24 14:00 Review of Systems Constitutional: no fever, chill, weight loss HEENT: no eye pain, no hearing loss, no oral lesion, no scleral icterus Heart: no chest pain, no chest pressure Lung: no cough, no dyspnea with exertion Abdomen: see HPI : see hpi Musculoskeletal: no joint pain, no muscle pain Neurological: no seizure, no loss of sensation, no weakness in extremities Pysch: no depression, no anxiety Derm: no rash, no jaundice Vital Signs Vital Signs Date Time Temp Pulse Resp B/P (MAP) Pulse Ox O2 Delivery O2 Flow Rate FiO2 08/18/24 09:19 76 118/64 08/18/24 09:00 97.9 16 97 97.9 08/17/24 20:00 Room Air* 0 21 Physical Exam SKIN: [nl] HEENT: [nl] NECK: [nl] CARDIAC: rrr PULMONARY: [cta] ABDOMEN: [soft,nt] pelvic- ext gen reveals edematous vulva greater on left ,erythematous,no pus draiange noted Labs/Diagnostic Data Labs Test 08/18/24 11:13 08/17/24 04:32 08/16/24 15:02 08/16/24 13:50 Range/Units POC Glucose 344 H 70-106 mg/dl White Blood Count 9.0 # 4.4-10.8 10^3/uL Red Blood Count 4.14 4.0-5.20 10^6/uL Hemoglobin 13.5 12.2-16.2 g/dL Hematocrit 39.6 36.0-46.0 % Mean Corpuscular Volume 95.7 80.0-100.0 fL Mean Corpuscular Hemoglobin 32.8 H 28.0-32.0 pg Mean Corpuscular Hemoglobin Concent 34.2 32.0-36.0 g/dL Red Cell Distribution Width 13.3 11.8-14.3 % Platelet Count 222 140-450 10^3/uL Mean Platelet Volume 9.2 6.9-10.8 fL Neutrophils (%) (Auto) 63.2 37.0-80.0 % Lymphocytes (%) (Auto) 25.2 10.0-50.0 % Monocytes (%) (Auto) 8.7 0.0-12.0 % Eosinophils (%) (Auto) 1.9 0.0-7.0 % Basophils (%) (Auto) 1.0 0.0-2.0 % Neutrophils # (Auto) 5.7 1.6-8.6 10 ^3/uL Lymphocytes # (Auto) 2.3 0.4-5.4 10 ^3/uL Monocytes # (Auto) 0.8 0-1.3 10 ^3/uL Eosinophils # (Auto) 0.2 0-0.8 10 ^3/uL Basophils # (Auto) 0.1 0-0.2 10 ^3/uL Nucleated Red Blood Cells 0.0 % Sodium Level 139 # 136-145 mmol/L Potassium Level 3.3 L 3.5-5.1 mmol/L Chloride Level 104 98-107 mmol/L Carbon Dioxide Level 24 20-31 mmol/L Anion Gap 11 5-15 Blood Urea Nitrogen 16 9-23 mg/dL Creatinine 0.88 # 0.550-1.02 mg/dL Glomerular Filtration Rate Calc 75 >90 mL/min BUN/Creatinine Ratio 18.2 10.0-20.0 Serum Glucose 120 H 74-106 mg/dL Calcium Level 9.6 8.7-10.4 mg/dL Total Bilirubin 0.3 0.2-1.0 mg/dL Aspartate Amino Transferase (AST) 26 13-40 U/L Alanine Aminotransferase (ALT) 18 7-40 U/L Alkaline Phosphatase 98 46-116 U/L Total Protein 6.8 5.7-8.2 g/dL Albumin 4.2 3.2-4.8 g/dL Lactic Acid Level 1.6 0.4-2.0 mmol/L Lipase 80 H 12-53 U/L Beta-Hydroxybutyric Acid 1.786 H < 0.4 mmol/L Vaginal WBC (Wet Prep) Few Vaginal RBC (Wet Prep) Rare Vaginal Epithelial Cells (Wet Prep) Few Vaginal Bacteria (Wet Prep) Few Vaginal Trichomonas (Wet Prep) Not present Vaginal Yeast (Wet Prep) Few Vaginal Clue Cells (Wet Prep) None seen Test 08/16/24 13:39 Range/Units Urine Color Light-yellow Yellow Urine Clarity Clear Clear Urine pH 5.0 5.0-9.0 Urine Specific [place] 1.027 1.001-1.035 Urine Protein Negative Negative Urine Ketones 1+ H Negative Urine Blood Trace H Negative /uL Urine Nitrite Negative Negative Urine Bilirubin Negative Negative Urine Urobilinogen Normal Negative mg/dL Urine Leukocyte Esterase 1+ Negative /uL Urine RBC 11 0 - 4 /hpf Urine Microscopic WBC 10 H 0-5 /HPF Urine Squamous Epithelial Cells Few <5 /hpf Urine Bacteria Few H None Seen /hpf Urine Glucose 4+ H Normal mg/dL Microbiology Date/Time Source Procedure Growth Status 08/16/24 13:39 Voided Urine Urine Culture - Preliminary Resulted Primary Diagnosis uncontrolled dm vulvar abscess Plan incision and drainage made on left labia majora ,no pus noted will start her on abx clindamycin ,zosyn .cult obtained,start wound iirigation,warm pad and wd care to do daily visit,pt needs better management of dm.will sign off thank you Plan discussed with: Patient Visit Coding OBGYN Date of Service: Aug 18, 2024 Billing Provider: ODALYS MOORE DO INSIDE BARREL LATHE OPERATOR Common Visit Codes: [id number] OBS CARE (HIGH) INSIDE BARREL LATHE OPERATOR Consultation Codes: [id number] CONSULT <110MIN ODALYS MOORE DO Aug 18, 2024 12:34
[2024-08-18 13:00] VITALS: BP 115/69; PULSE 68; RESP 17; TEMP 97.8; O2SAT 97
--- NOTE | 2024-08-18 13:22 | DVHPN2 ---
Subjective Patient continues to report having labial pain. Reviewed: Care Plan, H&P, Labs Changes from previous H/P or p: No Changes General: Per HPI Eyes: No Pain, No Vision change, No Conjunctivae inflammation, No Eyelid inflammation, No Other, No Redness ENT: No Ear pain, No Ear discharge, No Nose pain, No Nose discharge, No Nose congestion, No Mouth pain, No Mouth swelling, No Throat pain, No Throat swelling, No Other Cardiovascular: No Chest Pain, No Palpitations, No Orthopnea, No Paroxysmal Noc. Dyspnea, No Edema, No Lt Headedness, No Other Respiratory: No Cough, No Dry, No Shortness of breath, No SOB with excertion, No Wheezing, No Hemoptysis, No Pleuritic Pain, No Sputum, No Other Gastrointestinal: No Nausea, No Vomiting, No Abdominal Pain, No Diarrhea, No Constipation, No Melena, No Hematochezia, No Other Genitourinary: No Dysuria, No Frequency, No Incontinence, No Hematuria, No Retention; Other (Vaginal discharge/pain) Musculoskeletal: No other, No neck pain, No shoulder pain, No arm pain, No back pain, No hand pain, No leg pain, No foot pain Skin: No Rash, No Lesions, No Jaundice, No Bruising, No Other Objective Vitals Vital Signs Date Time Temp Pulse Resp B/P (MAP) Pulse Ox O2 Delivery O2 Flow Rate FiO2 08/18/24 09:19 76 118/64 08/18/24 09:00 97.9 16 97 97.9 08/17/24 20:00 Room Air* 0 21 Intake/Output Intake and Output 08/18/24 07:00 Intake Total 1825 ml Balance 1825 ml Intake Oral 625 ml IV Total 1200 ml # Voids 5 # Bowel Movements 2 General Appearance: Alert, Oriented X3, Cooperative, mild distress HEENT: Atraumatic, PERRLA Cardiovascular: Normal S1, Normal S2 Abdomen: Normal bowel sounds, Soft, No tenderness, No hepatospenomegaly Musculoskeletal: Normal sensory function, Normal motor function Skin: Dry, Intact Psych/Mental Status: Mental status NL, Mood NL Medications Current Medications Medications Dose Ordered Sig/Nicholas Route Start Time Stop Time Status Last Admin Dose Admin Ceftriaxone Sodium 50 ml @ 100 mls/hr DAILY@09 IV 08/17/24 09:00 08/18/24 12:15 100 MLS/HR Atorvastatin Calcium 20 mg HS PO 08/16/24 22:00 08/17/24 22:39 20 MG Metoprolol Tartrate 25 mg BID PO 08/16/24 22:00 08/18/24 09:19 25 MG Hydralazine HCl 10 mg Q6HP PRN IV 08/16/24 19:15 Acetaminophen/ Hydrocodone Bitart 1 tab Q4HP PRN PO 08/16/24 19:15 Hold 08/17/24 17:02 1 TAB Ondansetron HCl 4 mg Q4HP PRN IV 08/16/24 19:15 08/17/24 04:52 4 MG Docusate Sodium 100 mg BIDPRN PRN PO 08/16/24 19:15 Acetaminophen 650 mg Q6HP PRN PO 08/16/24 19:15 Sertraline HCl 50 mg DAILY PO 08/17/24 10:00 08/18/24 09:16 50 MG Nitroglycerin 0.4 mg Q5MINP PRN SL 08/16/24 20:00 Sodium Chloride 1,000 ml @ 100 mls/hr Q10H IV 08/16/24 21:45 08/18/24 04:14 100 MLS/HR Morphine Sulfate 2 mg Q30M PRN IV 08/17/24 04:45 Morphine Sulfate 2 mg Q4HPRN PRN IV 08/17/24 04:45 08/18/24 04:34 2 MG Insulin Glargine 20 units HS SC 08/17/24 22:00 08/17/24 22:37 20 UNITS Diagnostic Test (Pha) 1 strip ACHS 08/17/24 17:00 08/18/24 13:02 1 STRIP Insulin Human Regular HS SC 08/17/24 22:00 08/17/24 22:39 6 UNITS Insulin Human Regular AC SC 08/17/24 17:00 08/18/24 13:04 12 UNITS Dextrose 50 ml UD PRN IV 08/17/24 14:30 Ketorolac Tromethamine 30 mg Q6HPRN PRN IV 08/17/24 23:00 08/22/24 22:59 08/18/24 09:13 30 MG Lidocaine HCl 10 ml ONCE PRN IJ 08/18/24 07:00 Clindamycin Phosphate 50 ml @ 50 mls/hr Q8HR IV 08/18/24 14:00 Laboratory Results Laboratory Tests 08/17/24 04:32 Urinalysis Test 08/16/24 13:39 Urine Color Light-yellow (Yellow) Urine Clarity Clear (Clear) Urine pH 5.0 (5.0-9.0) Urine Specific [place] 1.027 (1.001-1.035) Urine Protein Negative (Negative) Urine Ketones 1+ (Negative) H Urine Blood Trace /uL (Negative) H Urine Nitrite Negative (Negative) Urine Bilirubin Negative (Negative) Urine Urobilinogen Normal mg/dL (Negative) Urine Leukocyte Esterase 1+ /uL (Negative) Urine RBC 11 /hpf (0 - 4) Urine Microscopic WBC 10 /HPF (0-5) H Urine Squamous Epithelial Cells Few /hpf (<5) Urine Bacteria Few /hpf (None Seen) H Urine Glucose 4+ mg/dL (Normal) H Microbiology Microbiology Date/Time Source Procedure Growth Status 08/16/24 13:39 Voided Urine Urine Culture - Preliminary Resulted Labs and/or images reviewed: Labs reviewed by me, Image(s) reviewed by me Assessment/Plan Assessment/Plan Impression: -labile abscess -diabetes mellitus, uncontrolled -complicated cystitis -obesity -hypokalemia -history of CVA -hypertension -dyslipidemia Plan: Events: Patient went to OB clinic today for possible abscess I&D. Patient reports that I and D was performed. OBGYN records reveals no pustulant drainage. Continue antibiotic therapy at this time -continue antibiotic therapy with Rocephin, Diflucan, clindamycin -potassium replacement -regular insulin sliding scale. Increase Lantus to 20 units b.i.d. -continue antihypertensives -repeat labs in a.m. Total time spent with patient discussing and formulating plan of care: 35 minutes. This medical document was created using an electronic medical record system with [employer] dictation system. Although this document has been carefully reviewed, there may still be some phonetic and typographical errors. These areas are purely typographical due to imperfections of the software programs, and do not reflect any compromise in the patient's medical care. Plan discussed with: Patient, Other (RN) My Orders Orders - PALLAVI CAREY NP Procedure Category Date Status Time * Butcher Supervisor Consultation CONS 08/17/24 Transmitted 13:33 Insulin Lantus PHA 08/17/24 In Process (Glargine) (Lantus) 22:00 Glucose Blood PHA 08/17/24 In Process (Accu-Chek Comfort 17:00 Insulin R (Human) PHA 08/17/24 In Process (Insulin R) 22:00 Insulin R (Human) PHA 08/17/24 In Process (Insulin R) 17:00 Dextrose 50% Syringe PHA 08/17/24 In Process 14:30 Wound Culture W/ Gs [place]IN[place]O 08/18/24 In Process 09:08 Date of Service: Aug 18, 2024 Billing Provider: PALLAVI CAREY NP Common Visit Codes: [id number] INP/OBS CARE(HIGH) PALLAVI CAREY NP Aug 18, 2024 13:22
[2024-08-18] MEDS: CLINDAMYCIN 900MG IV 50 ML IV SCH (14:29)
[2024-08-18] MEDS: OXYCODONE W/ ACETAMINOPHEN 5/325MG TABLET PO PRN (14:49)
[2024-08-18 17:00] VITALS: BP 124/70; PULSE 79; RESP 16; TEMP 97.9; O2SAT 97
[2024-08-18 21:00] VITALS: BP 137/85; PULSE 76; RESP 17; TEMP 97.5; O2SAT 98
[2024-08-18] MEDS: INSULIN LANTUS (GLARGINE) 1 /0.01ml (100units/ml) SC SCH (22:23)
[2024-08-19 01:00] VITALS: BP 115/73; PULSE 70; RESP 18; TEMP 97.6; O2SAT 97
[2024-08-19 05:00] VITALS: BP 151/75; PULSE 75; RESP 18; TEMP 97.8; O2SAT 98
[2024-08-19 08:54] VITALS: BP 128/85; PULSE 72; RESP 16; TEMP 97.4; O2SAT 99
[2024-08-19] MEDS: FLUCONAZOLE 100 MG TAB PO ONE (09:05)
[2024-08-19 12:48] VITALS: BP 135/76; PULSE 67; RESP 16; TEMP 97.9; O2SAT 99
--- NOTE | 2024-08-19 15:49 | DVHPN2 ---
Subjective Patient continues to report having labial pain. Reviewed: Care Plan, H&P, Labs Changes from previous H/P or p: No Changes General: Per HPI Eyes: No Pain, No Vision change, No Conjunctivae inflammation, No Eyelid inflammation, No Other, No Redness ENT: No Ear pain, No Ear discharge, No Nose pain, No Nose discharge, No Nose congestion, No Mouth pain, No Mouth swelling, No Throat pain, No Throat swelling, No Other Cardiovascular: No Chest Pain, No Palpitations, No Orthopnea, No Paroxysmal Noc. Dyspnea, No Edema, No Lt Headedness, No Other Respiratory: No Cough, No Dry, No Shortness of breath, No SOB with excertion, No Wheezing, No Hemoptysis, No Pleuritic Pain, No Sputum, No Other Gastrointestinal: No Nausea, No Vomiting, No Abdominal Pain, No Diarrhea, No Constipation, No Melena, No Hematochezia, No Other Genitourinary: No Dysuria, No Frequency, No Incontinence, No Hematuria, No Retention; Other (Vaginal discharge/pain) Musculoskeletal: No other, No neck pain, No shoulder pain, No arm pain, No back pain, No hand pain, No leg pain, No foot pain Skin: No Rash, No Lesions, No Jaundice, No Bruising, No Other Objective Vitals Vital Signs Date Time Temp Pulse Resp B/P (MAP) Pulse Ox O2 Delivery O2 Flow Rate FiO2 08/19/24 12:48 97.9 67 16 135/76 (95) 99 97.9 08/19/24 07:30 Room Air* 0 21 Intake/Output Intake and Output 08/19/24 07:00 Intake Total 3125 ml Output Total 100 ml Balance 3025 ml Intake Oral 1525 ml IV Total 1600 ml Output Urine Total 100 ml # Voids 4 # Bowel Movements 2 General Appearance: Alert, Oriented X3, Cooperative, mild distress HEENT: Atraumatic, PERRLA Cardiovascular: Normal S1, Normal S2 Abdomen: Normal bowel sounds, Soft, No tenderness, No hepatospenomegaly Musculoskeletal: Normal sensory function, Normal motor function Skin: Dry, Intact Psych/Mental Status: Mental status NL, Mood NL Medications Current Medications Medications Dose Ordered Sig/Nicholas Route Start Time Stop Time Status Last Admin Dose Admin Ceftriaxone Sodium 50 ml @ 100 mls/hr DAILY@09 IV 08/17/24 09:00 08/19/24 09:05 100 MLS/HR Atorvastatin Calcium 20 mg HS PO 08/16/24 22:00 08/18/24 22:20 20 MG Metoprolol Tartrate 25 mg BID PO 08/16/24 22:00 08/19/24 09:05 25 MG Hydralazine HCl 10 mg Q6HP PRN IV 08/16/24 19:15 Acetaminophen/ Hydrocodone Bitart 1 tab Q4HP PRN PO 08/16/24 19:15 Hold 08/17/24 17:02 1 TAB Ondansetron HCl 4 mg Q4HP PRN IV 08/16/24 19:15 08/17/24 04:52 4 MG Docusate Sodium 100 mg BIDPRN PRN PO 08/16/24 19:15 Acetaminophen 650 mg Q6HP PRN PO 08/16/24 19:15 Sertraline HCl 50 mg DAILY PO 08/17/24 10:00 08/19/24 09:04 50 MG Nitroglycerin 0.4 mg Q5MINP PRN SL 08/16/24 20:00 Sodium Chloride 1,000 ml @ 100 mls/hr Q10H IV 08/16/24 21:45 08/19/24 09:06 100 MLS/HR Morphine Sulfate 2 mg Q30M PRN IV 08/17/24 04:45 Diagnostic Test (Pha) 1 strip ACHS 08/17/24 17:00 08/19/24 11:13 1 STRIP Insulin Human Regular HS SC 08/17/24 22:00 08/18/24 22:26 6 UNITS Insulin Human Regular AC SC 08/17/24 17:00 08/19/24 11:13 6 UNITS Dextrose 50 ml UD PRN IV 08/17/24 14:30 Lidocaine HCl 10 ml ONCE PRN IJ 08/18/24 07:00 Clindamycin Phosphate 50 ml @ 50 mls/hr Q8HR IV 08/18/24 14:00 08/19/24 13:39 50 MLS/HR Insulin Glargine 20 units BID SC 08/18/24 22:00 08/19/24 11:14 20 UNITS Morphine Sulfate 2 mg Q3HPRN PRN IV 08/18/24 14:00 Oxycodone/ Acetaminophen 1 tab Q4HP PRN PO 08/18/24 14:00 08/19/24 11:16 1 TAB Laboratory Results Laboratory Tests 08/17/24 04:32 Urinalysis Test 08/16/24 13:39 Urine Color Light-yellow (Yellow) Urine Clarity Clear (Clear) Urine pH 5.0 (5.0-9.0) Urine Specific [place] 1.027 (1.001-1.035) Urine Protein Negative (Negative) Urine Ketones 1+ (Negative) H Urine Blood Trace /uL (Negative) H Urine Nitrite Negative (Negative) Urine Bilirubin Negative (Negative) Urine Urobilinogen Normal mg/dL (Negative) Urine Leukocyte Esterase 1+ /uL (Negative) Urine RBC 11 /hpf (0 - 4) Urine Microscopic WBC 10 /HPF (0-5) H Urine Squamous Epithelial Cells Few /hpf (<5) Urine Bacteria Few /hpf (None Seen) H Urine Glucose 4+ mg/dL (Normal) H Microbiology Microbiology Date/Time Source Procedure Growth Status 08/18/24 09:08 Vaginal Gram Stain Pending Resulted 08/18/24 09:08 Wound Culture - Preliminary Streptococcus Group B Resulted 08/16/24 13:39 Voided Urine Urine Culture - Final Complete Labs and/or images reviewed: Labs reviewed by me, Image(s) reviewed by me Assessment/Plan Assessment/Plan Impression: -labile abscess -diabetes mellitus, uncontrolled -complicated cystitis -obesity -hypokalemia -history of CVA -hypertension -dyslipidemia Plan: Events: Patient with Strep B from I&D performed on labial abscess. Deescalate antibiotics. Continues to report having severe pain. -continue clindamycin and Diflucan. Stop Rocephin -potassium replacement -regular insulin sliding scale. Increase Lantus to 20 units b.i.d. -continue antihypertensives -repeat labs in a.m. Total time spent with patient discussing and formulating plan of care: 35 minutes. This medical document was created using an electronic medical record system with [employer] dictation system. Although this document has been carefully reviewed, there may still be some phonetic and typographical errors. These areas are purely typographical due to imperfections of the software programs, and do not reflect any compromise in the patient's medical care. Plan discussed with: Patient, Other (RN) My Orders Orders - PALLVAI CAREY NP Procedure Category Date Status Time Complete Blood Count LAB 08/20/24 Verified 04:00 Basic Metabolic Panel LAB 08/20/24 Verified 04:00 Date of Service: Aug 19, 2024 Billing Provider: PALLAVI CAREY NP Common Visit Codes: [id number] INP/OBS CARE(HIGH) PALLAVI CAREY NP Aug 19, 2024 15:49
[2024-08-19 16:53] VITALS: BP 127/72; PULSE 66; RESP 16; TEMP 97.6; O2SAT 95
[2024-08-19] MEDS: MORPHINE SULFATE 4 MG/ML SYR/VIAL IV PRN (20:33)
[2024-08-19 21:00] VITALS: BP 158/97; PULSE 73; RESP 17; TEMP 97.8; O2SAT 99
[2024-08-20] VITALS (8 sets, daily range): BP systolic 124–157; BP diastolic 76–98; PULSE 68–82; RESP 16–19; TEMP 98–98.4; O2SAT 94–99
[2024-08-20 05:55] LABS: Basophils # (auto) 0.1 10 ^3/uL (0-0.2); Basophils % (auto) 1.1 % (0.0-2.0); Eosinophils # (auto) 0.2 10 ^3/uL (0-0.8); Eosinophils % (auto) 3.8 % (0.0-7.0); Hematocrit 35.4 % (36.0-46.0); Lymphocytes # (auto) 1.7 10 ^3/uL (0.4-5.4); Mean Corpuscular Hemoglobin 32.5 pg (28.0-32.0); Mean Corpuscular Volume 95.7 fL (80.0-100.0); Monocytes # (auto) 0.5 10 ^3/uL (0-1.3); Monocytes % (auto) 10.5 % (0.0-12.0); Neutrophils # (auto) 2.5 10 ^3/uL (1.6-8.6); Neutrophils % (auto) 50.6 % (37.0-80.0); Platelet Count (auto) 232 10^3/uL (140-450); Red Cell Distribution Width 13.4 % (11.8-14.3); White Blood Cell 4.9 10^3/uL (4.4-10.8)
[2024-08-20 06:01] LABS: Potassium 3.8 mmol/L (3.5-5.1); Sodium 143 mmol/L (136-145)
[2024-08-20 06:02] LABS: Anion Gap 7 (5-15); Calcium 9.6 mg/dL (8.7-10.4); Carbon Dioxide 24 mmol/L (20-31)
[2024-08-20 06:05] LABS: Chloride 112 mmol/L (98-107)
[2024-08-20 06:07] LABS: BUN/Creatinine Ratio 13.3 (10.0-20.0); Blood Urea Nitrogen 11 mg/dL (9-23)
[2024-08-20 06:15] LABS: Glucose 207 mg/dL (74-106)
[2024-08-20] MEDS ORDERED: CLIN1CAP70 PO (10:49)
[2024-08-20] MEDS ORDERED: FLUC150T38 PO (11:00)
--- NOTE | 2024-08-20 11:58 | DVHPN2 ---
Subjective Patient continues to report having labial pain. Reviewed: Care Plan, H&P, Labs Changes from previous H/P or p: No Changes General: Per HPI Eyes: No Pain, No Vision change, No Conjunctivae inflammation, No Eyelid inflammation, No Other, No Redness ENT: No Ear pain, No Ear discharge, No Nose pain, No Nose discharge, No Nose congestion, No Mouth pain, No Mouth swelling, No Throat pain, No Throat swelling, No Other Cardiovascular: No Chest Pain, No Palpitations, No Orthopnea, No Paroxysmal Noc. Dyspnea, No Edema, No Lt Headedness, No Other Respiratory: No Cough, No Dry, No Shortness of breath, No SOB with excertion, No Wheezing, No Hemoptysis, No Pleuritic Pain, No Sputum, No Other Gastrointestinal: No Nausea, No Vomiting, No Abdominal Pain, No Diarrhea, No Constipation, No Melena, No Hematochezia, No Other Genitourinary: No Dysuria, No Frequency, No Incontinence, No Hematuria, No Retention; Other (Vaginal discharge/pain) Musculoskeletal: No other, No neck pain, No shoulder pain, No arm pain, No back pain, No hand pain, No leg pain, No foot pain Skin: No Rash, No Lesions, No Jaundice, No Bruising, No Other Objective Vitals Vital Signs Date Time Temp Pulse Resp B/P (MAP) Pulse Ox O2 Delivery O2 Flow Rate FiO2 08/20/24 10:36 82 147/84 08/20/24 08:47 98.0 16 99 98.0 08/19/24 20:00 Room Air* 0 21 Intake/Output Intake and Output 08/20/24 07:00 Intake Total 1000 ml Output Total 0 ml Balance 1000 ml Intake Oral 300 ml IV Total 700 ml Output Urine Total 0 ml General Appearance: Alert, Oriented X3, Cooperative, mild distress HEENT: Atraumatic, PERRLA Cardiovascular: Normal S1, Normal S2 Abdomen: Normal bowel sounds, Soft, No tenderness, No hepatospenomegaly Musculoskeletal: Normal sensory function, Normal motor function Skin: Dry, Intact Psych/Mental Status: Mental status NL, Mood NL Medications Current Medications Medications Dose Ordered Sig/Nicholas Route Start Time Stop Time Status Last Admin Dose Admin Atorvastatin Calcium 20 mg HS PO 08/16/24 22:00 08/19/24 22:48 20 MG Metoprolol Tartrate 25 mg BID PO 08/16/24 22:00 08/20/24 10:36 25 MG Hydralazine HCl 10 mg Q6HP PRN IV 08/16/24 19:15 Acetaminophen/ Hydrocodone Bitart 1 tab Q4HP PRN PO 08/16/24 19:15 Hold 08/17/24 17:02 1 TAB Ondansetron HCl 4 mg Q4HP PRN IV 08/16/24 19:15 08/17/24 04:52 4 MG Docusate Sodium 100 mg BIDPRN PRN PO 08/16/24 19:15 Acetaminophen 650 mg Q6HP PRN PO 08/16/24 19:15 Sertraline HCl 50 mg DAILY PO 08/17/24 10:00 08/20/24 10:34 50 MG Nitroglycerin 0.4 mg Q5MINP PRN SL 08/16/24 20:00 Sodium Chloride 1,000 ml @ 100 mls/hr Q10H IV 08/16/24 21:45 08/19/24 19:45 100 MLS/HR Morphine Sulfate 2 mg Q30M PRN IV 08/17/24 04:45 Diagnostic Test (Pha) 1 strip ACHS 08/17/24 17:00 08/20/24 11:51 1 STRIP Insulin Human Regular HS SC 08/17/24 22:00 08/19/24 22:00 6 UNITS Insulin Human Regular AC SC 08/17/24 17:00 08/20/24 11:50 2 UNITS Dextrose 50 ml UD PRN IV 08/17/24 14:30 Lidocaine HCl 10 ml ONCE PRN IJ 08/18/24 07:00 Clindamycin Phosphate 50 ml @ 50 mls/hr Q8HR IV 08/18/24 14:00 08/20/24 06:53 50 MLS/HR Insulin Glargine 20 units BID SC 08/18/24 22:00 08/20/24 10:35 20 UNITS Morphine Sulfate 2 mg Q3HPRN PRN IV 08/18/24 14:00 08/20/24 06:54 2 MG Oxycodone/ Acetaminophen 1 tab Q4HP PRN PO 08/18/24 14:00 08/20/24 00:05 1 TAB Fluconazole 100 mg DAILY PO 08/20/24 13:00 Laboratory Results Laboratory Tests 08/20/24 04:41 Chemistry Test 08/20/24 04:41 Calcium Level 9.6 mg/dL (8.7-10.4) Urinalysis Test 08/16/24 13:39 Urine Color Light-yellow (Yellow) Urine Clarity Clear (Clear) Urine pH 5.0 (5.0-9.0) Urine Specific [place] 1.027 (1.001-1.035) Urine Protein Negative (Negative) Urine Ketones 1+ (Negative) H Urine Blood Trace /uL (Negative) H Urine Nitrite Negative (Negative) Urine Bilirubin Negative (Negative) Urine Urobilinogen Normal mg/dL (Negative) Urine Leukocyte Esterase 1+ /uL (Negative) Urine RBC 11 /hpf (0 - 4) Urine Microscopic WBC 10 /HPF (0-5) H Urine Squamous Epithelial Cells Few /hpf (<5) Urine Bacteria Few /hpf (None Seen) H Urine Glucose 4+ mg/dL (Normal) H Microbiology Microbiology Date/Time Source Procedure Growth Status 08/18/24 09:08 Vaginal Gram Stain Pending Resulted 08/18/24 09:08 Wound Culture - Preliminary Presumptive Maria Luz albicans Streptococcus Group B Resulted 08/16/24 13:39 Voided Urine Urine Culture - Final Complete Labs and/or images reviewed: Labs reviewed by me, Image(s) reviewed by me Assessment/Plan Assessment/Plan Impression: -labile abscess -diabetes mellitus, uncontrolled -complicated cystitis -obesity -hypokalemia -history of CVA -hypertension -dyslipidemia Plan: Events: Patient continues to report having severe pain. Site inspected with noted persistent erythema. No drainage. Consider discharge once erythema has improved. Blood sugars continue to be somewhat uncontrolled. Increase Lantus to 22 units b.i.d. -continue clindamycin and Diflucan. Stop Rocephin -regular insulin sliding scale. Increase Lantus to 22 units b.i.d. -continue antihypertensives -repeat labs in a.m. Total time spent with patient discussing and formulating plan of care: 35 minutes. This medical document was created using an electronic medical record system with [employer] system. Although this document has been carefully reviewed, there may still be some phonetic and typographical errors. These areas are purely typographical due to imperfections of the software programs, and do not reflect any compromise in the patient's medical care. Plan discussed with: Patient, Other (RN) My Orders Orders - PALLAVI CAREY NP Procedure Category Date Status Time Insulin Lantus PHA 08/20/24 Verified (Glargine) (Lantus) 22:00 Date of Service: Aug 20, 2024 Billing Provider: PALLAVI CAREY NP Common Visit Codes: [id number] INP/OBS CARE(HIGH) PALLAVI CAREY NP Aug 20, 2024 11:58
[2024-08-20] MEDS: FLUCONAZOLE 100 MG TAB PO SCH (15:05)
[2024-08-20] MEDS: INSULIN LANTUS (GLARGINE) 1 /0.01ml (100units/ml) SC SCH (22:17)
[2024-08-21] VITALS (8 sets, daily range): BP systolic 128–155; BP diastolic 77–90; PULSE 61–77; RESP 16–20; TEMP 97.1–98; O2SAT 95–99
[2024-08-21] MEDS: MORPHINE SULFATE 4 MG/ML SYR/VIAL IV PRN (04:30)
--- NOTE | 2024-08-21 15:58 | DVHPN2 ---
Subjective Feels better Reviewed: Care Plan, H&P, Labs, Medications, Previous Orders, Radiology Changes from previous H/P or p: No Changes General: Per HPI Objective Vitals Vital Signs Date Time Temp Pulse Resp B/P (MAP) Pulse Ox O2 Delivery O2 Flow Rate FiO2 08/21/24 14:52 70 18 126/80 08/21/24 13:00 97.8 99 97.8 08/21/24 08:00 Room Air* 0 21 Intake/Output Intake and Output 08/21/24 07:00 Intake Total 650 ml Balance 650 ml Intake Oral 500 ml IV Total 150 ml # Voids 5 # Bowel Movements 2 General Appearance: Alert, Oriented X3, Cooperative HEENT: Atraumatic, PERRLA Lungs: Clear to auscultation Cardiovascular: Regular rate Abdomen: Normal bowel sounds Skin: Dry, Intact Psych/Mental Status: Mental status NL, Mood NL Medications Current Medications Medications Dose Ordered Sig/Nicholas Route Start Time Stop Time Status Last Admin Dose Admin Atorvastatin Calcium 20 mg HS PO 08/16/24 22:00 08/20/24 22:18 20 MG Metoprolol Tartrate 25 mg BID PO 08/16/24 22:00 08/21/24 10:14 25 MG Hydralazine HCl 10 mg Q6HP PRN IV 08/16/24 19:15 Acetaminophen/ Hydrocodone Bitart 1 tab Q4HP PRN PO 08/16/24 19:15 Hold 08/17/24 17:02 1 TAB Ondansetron HCl 4 mg Q4HP PRN IV 08/16/24 19:15 08/17/24 04:52 4 MG Docusate Sodium 100 mg BIDPRN PRN PO 08/16/24 19:15 Acetaminophen 650 mg Q6HP PRN PO 08/16/24 19:15 Sertraline HCl 50 mg DAILY PO 08/17/24 10:00 08/21/24 10:13 50 MG Nitroglycerin 0.4 mg Q5MINP PRN SL 08/16/24 20:00 Sodium Chloride 1,000 ml @ 100 mls/hr Q10H IV 08/16/24 21:45 08/19/24 19:45 100 MLS/HR Morphine Sulfate 2 mg Q30M PRN IV 08/17/24 04:45 Diagnostic Test (Pha) 1 strip ACHS 08/17/24 17:00 08/21/24 11:59 1 STRIP Insulin Human Regular HS SC 08/17/24 22:00 08/20/24 22:17 2 UNITS Insulin Human Regular AC SC 08/17/24 17:00 08/21/24 12:33 2 UNITS Dextrose 50 ml UD PRN IV 08/17/24 14:30 Lidocaine HCl 10 ml ONCE PRN IJ 08/18/24 07:00 Clindamycin Phosphate 50 ml @ 50 mls/hr Q8HR IV 08/18/24 14:00 08/21/24 14:37 50 MLS/HR Morphine Sulfate 2 mg Q3HPRN PRN IV 08/18/24 14:00 08/21/24 14:52 2 MG Oxycodone/ Acetaminophen 1 tab Q4HP PRN PO 08/18/24 14:00 08/21/24 10:13 1 TAB Fluconazole 100 mg DAILY PO 08/20/24 13:00 08/21/24 10:13 100 MG Insulin Glargine 22 units BID SC 08/20/24 22:00 08/21/24 10:00 22 UNITS Laboratory Results Laboratory Tests 08/20/24 04:41 Urinalysis Test 08/16/24 13:39 Urine Color Light-yellow (Yellow) Urine Clarity Clear (Clear) Urine pH 5.0 (5.0-9.0) Urine Specific [place] 1.027 (1.001-1.035) Urine Protein Negative (Negative) Urine Ketones 1+ (Negative) H Urine Blood Trace /uL (Negative) H Urine Nitrite Negative (Negative) Urine Bilirubin Negative (Negative) Urine Urobilinogen Normal mg/dL (Negative) Urine Leukocyte Esterase 1+ /uL (Negative) Urine RBC 11 /hpf (0 - 4) Urine Microscopic WBC 10 /HPF (0-5) H Urine Squamous Epithelial Cells Few /hpf (<5) Urine Bacteria Few /hpf (None Seen) H Urine Glucose 4+ mg/dL (Normal) H Microbiology Microbiology Date/Time Source Procedure Growth Status 08/18/24 09:08 Vaginal Gram Stain - Final Resulted 08/18/24 09:08 Wound Culture - Preliminary Presumptive Maria Luz albicans Streptococcus Group B Resulted 08/16/24 13:39 Voided Urine Urine Culture - Final Complete Assessment/Plan Assessment/Plan Labial abscess status post I and D UTI and cystitis Diabetes Hypokalemia Overweight Hypertension History of CVA Dyslipidemia Plan: Continue current plan of care. Possible discharge home tomorrow with p.o. antibiotics Plan discussed with: Patient Date of Service: Aug 21, 2024 Billing Provider: KELLIE JUAN MD Common Visit Codes: [id number] INP/OBS CARE(HIGH) KELLIE JUAN MD Aug 21, 2024 15:58
[2024-08-22 01:00] VITALS: BP 152/85; PULSE 82; RESP 18; TEMP 98.3; O2SAT 96
[2024-08-22 05:00] VITALS: BP 129/79; PULSE 79; RESP 18; TEMP 97.5; O2SAT 98
[2024-08-22 08:00] VITALS: PULSE 68; RESP 16; O2SAT 99
[2024-08-22 09:00] VITALS: BP 147/92; PULSE 68; RESP 16; TEMP 98; O2SAT 99
[2024-08-22 12:55] VITALS: BP 137/89; PULSE 65; RESP 16; TEMP 98; O2SAT 99
--- NOTE | 2024-08-22 15:06 | DVHDS2 ---
Discharge Summary Date of Admission Aug 16, 2024 at 19:49 Date of Discharge: Aug 22, 2024 Admitting Diagnosis Labial abscess and pain Labs/Diagnostic Data: Laboratory Results Test 08/22/24 11:39 08/20/24 04:41 08/17/24 04:32 08/16/24 15:02 POC Glucose 175 mg/dl (70-106) White Blood Count 4.9 10^3/uL (4.4-10.8) Red Blood Count 3.70 10^6/uL (4.0-5.20) Hemoglobin 12.0 g/dL (12.2-16.2) Hematocrit 35.4 % (36.0-46.0) Mean Corpuscular Volume 95.7 fL (80.0-100.0) Mean Corpuscular Hemoglobin 32.5 pg (28.0-32.0) Mean Corpuscular Hemoglobin Concent 34.0 g/dL (32.0-36.0) Red Cell Distribution Width 13.4 % (11.8-14.3) Platelet Count 232 10^3/uL (140-450) Mean Platelet Volume 9.4 fL (6.9-10.8) Neutrophils (%) (Auto) 50.6 % (37.0-80.0) Lymphocytes (%) (Auto) 34.0 % (10.0-50.0) Monocytes (%) (Auto) 10.5 % (0.0-12.0) Eosinophils (%) (Auto) 3.8 % (0.0-7.0) Basophils (%) (Auto) 1.1 % (0.0-2.0) Neutrophils # (Auto) 2.5 10 ^3/uL (1.6-8.6) Lymphocytes # (Auto) 1.7 10 ^3/uL (0.4-5.4) Monocytes # (Auto) 0.5 10 ^3/uL (0-1.3) Eosinophils # (Auto) 0.2 10 ^3/uL (0-0.8) Basophils # (Auto) 0.1 10 ^3/uL (0-0.2) Nucleated Red Blood Cells 0.0 % Sodium Level 143 mmol/L (136-145) Potassium Level 3.8 mmol/L (3.5-5.1) Chloride Level 112 mmol/L (98-107) Carbon Dioxide Level 24 mmol/L (20-31) Anion Gap 7 (5-15) Blood Urea Nitrogen 11 mg/dL (9-23) Creatinine 0.83 mg/dL (0.550-1.02) Glomerular Filtration Rate Calc 80 mL/min (>90) BUN/Creatinine Ratio 13.3 (10.0-20.0) Serum Glucose 207 mg/dL (74-106) Calcium Level 9.6 mg/dL (8.7-10.4) Total Bilirubin 0.3 mg/dL (0.2-1.0) Aspartate Amino Transferase (AST) 26 U/L (13-40) Alanine Aminotransferase (ALT) 18 U/L (7-40) Alkaline Phosphatase 98 U/L (46-116) Total Protein 6.8 g/dL (5.7-8.2) Albumin 4.2 g/dL (3.2-4.8) Lactic Acid Level 1.6 mmol/L (0.4-2.0) Lipase 80 U/L (12-53) Beta-Hydroxybutyric Acid 1.786 mmol/L (< 0.4) Test 08/16/24 13:50 08/16/24 13:39 Vaginal WBC (Wet Prep) Few Vaginal RBC (Wet Prep) Rare Vaginal Epithelial Cells (Wet Prep) Few Vaginal Bacteria (Wet Prep) Few Vaginal Trichomonas (Wet Prep) Not present Vaginal Yeast (Wet Prep) Few Vaginal Clue Cells (Wet Prep) None seen Urine Color Light-yellow (Yellow) Urine Clarity Clear (Clear) Urine pH 5.0 (5.0-9.0) Urine Specific [place] 1.027 (1.001-1.035) Urine Protein Negative (Negative) Urine Ketones 1+ (Negative) Urine Blood Trace /uL (Negative) Urine Nitrite Negative (Negative) Urine Bilirubin Negative (Negative) Urine Urobilinogen Normal mg/dL (Negative) Urine Leukocyte Esterase 1+ /uL (Negative) Urine RBC 11 /hpf (0 - 4) Urine Microscopic WBC 10 /HPF (0-5) Urine Squamous Epithelial Cells Few /hpf (<5) Urine Bacteria Few /hpf (None Seen) Urine Glucose 4+ mg/dL (Normal) Other Laboratory Tests 08/20/24 04:41 Brief Hx & Hospital Course: 59-year-old lady admitted to the hospital from the emergency room with vaginal discharge and labial abscess described as boil. She was treated with IV antibiotic. Cryptologist consult obtained and patient underwent I&D. She has been doing better since. Culture grew Maria Luz and Streptococcus B. patient is being discharged home with p.o. Diflucan and cephalexin. She will follow with PCP within one week Condition at Discharge: Good Final Diagnosis/Problems List Labial abscess UTI/cystitis Diabetes Overweight Hypertension History of CVA Dyslipidemia Hypokalemia/corrected Discharge Disposition: Home Discharge Instruct/Medications Diet: Consistent carbohydrate Activity: No Restrictions, As Tolerated Follow Up/Referral: PCP within one week Medications: Diflucan 200 mg daily for seven days Keflex 500 mg 4 times a day for seven days Resume previous home medications as before Discharge Statement: "Patient was advised to return to the ER or call 911 if any headaches, dizziness, shortness of breath, chest pain, abdominal pain, bleeding, fevers, or worsening of medical condition. Patient was counseled about treatment plan, medications, possible side effects, patientverbalized understanding. All questions were answered to the best of my ability. This discharge took greater then 30 minutes in planning, reviewing documentation, counseling the patient, and discussing with other team members." ASSESSMENT ASSESSMENT Assessment Date of Service: Aug 22, 2024 Billing Provider: KELLIE JUAN MD Common Visit Codes: 32220-PIB/OBS DISCH DAY <30MIN KELLIE JUAN MD Aug 22, 2024 15:06
[2024-08-22] MEDS ORDERED: FLUC200T PO (15:08)
[2024-08-22] MEDS ORDERED: SERT-289 PO (15:08)
[2024-08-22] MEDS ORDERED: CEPH500C PO (15:08)
[2024-08-22 15:40] VITALS: BP 137/89; PULSE 70; RESP 18; TEMP 98.6; O2SAT 96
== END 2024-08-22 16:15 | disposition home or self-care (01) | DRG 757 ==
LOC: ER 11:50 → OVERFLOW 19:49 → TELE-CENTR 08-17 15:02 → CENTRAL 08-18 09:19
PROVIDERS: ADMIT Nurse Practitioner Acute Care; ATTEND Nurse Practitioner Acute Care
DX: N76.4 Abscess of vulva (principal); N17.0 Acute kidney failure with tubular necrosis; E87.1 Hypo-osmolality and hyponatremia; N30.90 Cystitis, unspecified without hematuria; I10 Essential (primary) hypertension; E87.6 Hypokalemia; E78.5 Hyperlipidemia, unspecified; E66.9 Obesity, unspecified; E11.65 Type 2 diabetes mellitus with hyperglycemia; F17.210 Nicotine dependence, cigarettes, uncomplicated; J45.909 Unspecified asthma, uncomplicated; Z82.49 Family history of ischemic heart disease and other diseases of the circulatory system; Z85.05 Personal history of malignant neoplasm of liver; Z85.819 Personal history of malignant neoplasm of unspecified site of lip, oral cavity, and pharynx; Z86.73 Personal history of transient ischemic attack (TIA), and cerebral infarction without residual deficits; Z88.6 Allergy status to analgesic agent; Z90.710 Acquired absence of both cervix and uterus; Z68.24 Body mass index [BMI] 24.0-24.9, adult; Z79.4 Long term (current) use of insulin; Z79.84 Long term (current) use of oral hypoglycemic drugs; Z79.2 Long term (current) use of antibiotics; Z79.899 Other long term (current) drug therapy; Z90.49 Acquired absence of other specified parts of digestive tract
CPT/HCPCS: 36415; 76856; 80048; 80053; 81001; 82010; 82962; 83605; 83690; 85025; 87077; 87086; 87205; 87210; 96360; 96372; G0378; J0696; J1450; J1815; J1885; J2405; J3490